=== PATIENT | female | born 1960 | race Caucasian/White ===

== ENCOUNTER 2020-05-25 08:37 | Outpatient (CLI) | payer MEDICAID ==
[2020-05-25 12:08] LABS: BASOPHILS # (AUTO) 0.1 10^3/uL (0.0-0.1); BASOPHILS % (AUTO) 1.1 %; EOSINOPHILS # (AUTO) 0.2 10^3/uL (0.0-0.7); EOSINOPHILS % (AUTO) 2.4 %; HGB - HEMOGLOBIN 11.6 g/dL (12.0-16.0); LYMPHOCYTES # (AUTO) 2.1 10^3/uL (1.5-3.5); LYMPHOCYTES % (AUTO) 28.3 %; MEAN CORPUSCULAR HEMOGLOBIN 27.7 pg (27.0-31.0); MEAN CORPUSCULAR HGB CONC 30.4 g/dL (32.0-36.0); MEAN CORPUSCULAR VOLUME 91.2 fL (81.0-99.0); MEAN PLATELET VOLUME 10.2 fL (7.9-10.8); MONOCYTES # (AUTO) 0.6 10^3/uL (0.0-1.0); MONOCYTES % (AUTO) 8.5 %; NEUTROPHILS # (AUTO) 4.5 10^3/uL (1.5-6.6); NEUTROPHILS % (AUTO) 59.4 %; PLT - PLATELET COUNT 309 10^3/uL (130-450); RED BLOOD COUNT 4.19 10^6/uL (4.20-5.40); RED CELL DISTRIBUTION WIDTH 15.2 % (12.0-15.0); WHITE BLOOD COUNT 7.5 x10^3/uL (4.8-10.8)
[2020-05-25 12:23] LABS: HEMOGLOBIN A1c% 7.2 % (4.27-6.07)
[2020-05-25 12:29] LABS: ALBUMIN 4.2 g/dL (3.2-5.5); ALBUMIN/GLOBULIN RATIO 1.3 (1.0-2.2); ALKALINE PHOSPHATASE 72 IU/L (42-121); ALT ALANINE AMINOTRANSFERASE 13 IU/L (10-60); AST ASPARTATE AMINOTRANSFERASE 14 IU/L (10-42); BILIRUBIN,TOTAL 0.8 mg/dL (0.2-1.0); BUN - BLOOD UREA NITROGEN 35 mg/dL (6-20); CALCIUM 9.3 mg/dL (8.5-10.3); CARBON DIOXIDE - CO2 27 mmol/L (21-32); CHLORIDE 102 mmol/L (101-111); CHOLESTEROL 147 mg/dL; CREATININE 1.6 mg/dL (0.4-1.0); GLUCOSE 135 mg/dL (70-100); HDL CHOLESTEROL 37 mg/dL; LDL CHOLESTEROL,CALCULATED 82 mg/dL; LDL/HDL RATIO 2.2 (<4.4); SODIUM 138 mmol/L (135-145); TOTAL PROTEIN 7.5 g/dL (6.7-8.2); VLDL CHOLESTEROL 28 mg/dL
[2020-05-25 12:39] LABS: CREATININE,URINE 191.5 mg/dL; MICROALBUM/CREATININE RATIO,UR 3.1 ug/mg (<30.0); MICROALBUMIN,URINE 0.6 mg/dL (0-300.0)
== END 2020-05-25 23:59 | disposition home or self-care (01) ==
LOC: LAB.WCP 08:37
PROVIDERS: ATTEND Nurse Practitioner
DX: F41.9 Anxiety disorder, unspecified (principal); I10 Essential (primary) hypertension; E78.5 Hyperlipidemia, unspecified; E11.9 Type 2 diabetes mellitus without complications
CPT/HCPCS: 36415; 80053; 80061; 82043; 82570; 83036; 83721; 84443; 85025

== ENCOUNTER 2020-05-25 10:38 | Outpatient (CLI) | payer MEDICAID ==
--- NOTE | 2020-05-25 10:32 | XRAY Report ---
PROCEDURE: Hip 1 View RT INDICATIONS: RIGHT HIP PAIN TECHNIQUE: 2 views of the right hip were acquired. COMPARISON: None FINDINGS: Bones: No fractures or dislocations. No suspicious bony lesions. The visualized pelvic ring appear s intact. Mild right hip osseous hypertrophy compatible with mild osteoarthritis. Soft tissues: No suspicious soft tissue calcifications or masses. IMPRESSION: Mild right hip osteoarthritis. Reviewed by: Kaylin Saab MD, PhD on 05/25/2020 10:31 AM PDT Approved by: Kaylin Saab MD, PhD on 05/25/2020 10:31 AM PDT Station ID: [id number]
== END 2020-05-25 23:59 | disposition home or self-care (01) ==
LOC: DI.WCP 10:38
PROVIDERS: ATTEND Nurse Practitioner
DX: M16.11 Unilateral primary osteoarthritis, right hip (principal)

== ENCOUNTER 2020-09-04 11:19 | Outpatient (CLI) | payer MEDICAID | END 2020-09-04 11:20 | disposition critical access hospital (66) | LOC: EMS 11:19 | PROVIDERS: ATTEND Surgery | DX: R52 Pain, unspecified (principal); S09.90XA Unspecified injury of head, initial encounter; W18.30XA Fall on same level, unspecified, initial encounter; Y92.10 Unspecified residential institution as the place of occurrence of the external cause | CPT/HCPCS: A0425; A0429; A0999 ==

== ENCOUNTER 2020-09-04 11:50 | Inpatient (IN) | payer MEDICAID ==
[2020-09-04] MEDS ORDERED: ONDANSETRON 4 MG/2 ML VIAL IVP STA (12:22)
[2020-09-04 12:27] LABS: BASOPHILS # (AUTO) 0.1 10^3/uL (0.0-0.1); BASOPHILS % (AUTO) 1.1 %; EOSINOPHILS # (AUTO) 0.1 10^3/uL (0.0-0.7); EOSINOPHILS % (AUTO) 0.8 %; HGB - HEMOGLOBIN 10.4 g/dL (12.0-16.0); LYMPHOCYTES # (AUTO) 1.2 10^3/uL (1.5-3.5); LYMPHOCYTES % (AUTO) 15.1 %; MEAN CORPUSCULAR HEMOGLOBIN 27.3 pg (27.0-31.0); MEAN CORPUSCULAR HGB CONC 30.7 g/dL (32.0-36.0); MEAN PLATELET VOLUME 9.8 fL (7.9-10.8); MONOCYTES # (AUTO) 0.6 10^3/uL (0.0-1.0); MONOCYTES % (AUTO) 7.1 %; NEUTROPHILS # (AUTO) 5.9 10^3/uL (1.5-6.6); NEUTROPHILS % (AUTO) 75.4 %; PLT - PLATELET COUNT 385 10^3/uL (130-450); RED BLOOD COUNT 3.81 10^6/uL (4.20-5.40); RED CELL DISTRIBUTION WIDTH 14.8 % (12.0-15.0); WHITE BLOOD COUNT 7.9 x10^3/uL (4.8-10.8)
[2020-09-04] MEDS ORDERED: SODIUM CHLORIDE 0.9% 1,000 ML IV ONE (12:31)
[2020-09-04 12:57] LABS: ALBUMIN 4.2 g/dL (3.2-5.5); ALBUMIN/GLOBULIN RATIO 1.2 (1.0-2.2); BILIRUBIN,TOTAL 1.4 mg/dL (0.2-1.0); CALCIUM 9.4 mg/dL (8.5-10.3); CREATININE 3.2 mg/dL (0.4-1.0); TOTAL PROTEIN 7.6 g/dL (6.7-8.2)
--- NOTE | 2020-09-04 13:03 | CT Report ---
PROCEDURE: HEAD WO INDICATIONS: fall/anticoagulation TECHNIQUE: Noncontrast 4.5 mm thick angled axial sections acquired from the foramen magnum to the vertex. For r adiation dose reduction, the following was used: automated exposure control, adjustment of mA and/or kV according to patient size. COMPARISON: None. FINDINGS: Image quality: Excellent. CSF spaces: Basal cisterns are patent. No extra-axial fluid collections. Ventricles are normal in size and shape. Brain: No midline shift. No intracranial masses or hyperdense blood products. Moderate-sized ill-de fined area of hypodensity in the right frontal parietal lobe prominently involving the white matter, (6/23 and 4/). Small focus of hypodensity in the right caudate nucleus. Small area of periventricul ar hypodensity adjacent to the left frontal horn. Skull and face: Calvarium and visualized facial bones are intact, without suspicious lesions. Sinuses: Visualized sinuses and mastoids are clear. IMPRESSION: 1. No acute intracranial hemorrhage. 2. Moderate-sized area of hypodensity in the right frontoparietal lobe. This is most compatible with prior infarction. 3. Suspect prior lacunar infarct in the right caudate nucleus. 4. Prominent periventricular hypodensity at the left frontal horn. This could be due to chronic micro vascular ischemic disease or prior infarct. Comparison with prior head CT if available would be helpful. Reviewed by: Franklin Francois MD on 09/04/2020 12:01 PM RUST Approved by: Franklin Francois MD on 09/04/2020 12:01 PM RUST Station ID: [id number]
[2020-09-04] MEDS ORDERED: SODIUM CHLORIDE FLUSH 0.9% 10 ML SYRINGE IVP PRN (13:19)
[2020-09-04] MEDS ORDERED: ACETAMINOPHEN 325 MG TABLET PO PRN (13:19)
[2020-09-04] MEDS ORDERED: ONDANSETRON 4 MG/2 ML VIAL IVP PRN (13:19)
[2020-09-04] MEDS ORDERED: oxyCODONE 5 MG TABLET PO PRN (13:19)
[2020-09-04] MEDS ORDERED: SODIUM CHLORIDE 0.9% 1,000 ML IV STA (13:21)
--- NOTE | 2020-09-04 13:21 | ED Physician Documentation ---
History of Present Illness - Stated complaint Stated Complaint: GLF - Chief complaint Chief Complaint: Trauma Hd/Nk - History obtained from History obtained from: Patient - Additonal information Additional information: Pt is brought to the ED by EMS after a couple of GLF's at home. Pt has been nauseated and vomiting for about the past week and a half, and has become increasingly weak and lightheaded. She states she fell today because she felt very weak when standing up. No fevers or chills. No diarrhea. No SOB or CP. Review of Systems Ten Systems: 10 systems reviewed and negative Constitutional: reports: Reviewed and negative. denies: Fever, Chills Eyes: reports: Reviewed and negative Ears: reports: Reviewed and negative Nose: reports: Reviewed and negative Throat: reports: Reviewed and negative Cardiac: reports: Reviewed and negative Respiratory: reports: Reviewed and negative GI: reports: Nausea, Vomiting : reports: Reviewed and negative Skin: reports: Reviewed and negative Musculoskeletal: reports: Reviewed and negative Neurologic: reports: Generalized weakness, Near syncope. 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 - Present Medications Home Medications: Ambulatory Orders Medication Instructions Recorded Confirmed Atorvastatin Calcium [Lipitor] 80 mg PO DAILY 09/04/20 09/04/20 Clopidogrel [Plavix] 75 mg PO DAILY 09/04/20 09/04/20 Lisinopril/Hydrochlorothiazide 1 each PO DAILY 09/04/20 09/04/20 [Zestoretic 20-25 mg Tablet] Meloxicam [Mobic] 7.5 mg PO DAILY 09/04/20 09/04/20 Pioglitazone HCl [Actos] 30 mg PO DAILY 09/04/20 09/04/20 amLODIPine [Norvasc] 5 mg PO DAILY 09/04/20 09/04/20 hydrOXYzine HCL [Hydroxyzine HCl] 50 - 100 mg PO HS PRN 09/04/20 09/04/20 Ferrous Sulfate Liquid [Feosol 300 mg PO DAILYWM #30 udc 09/07/20 Liquid] Folic Acid 1 mg PO DAILY #30 tablet 09/07/20 Ondansetron Odt [Zofran Odt] 4 mg TL Q6H PRN #10 tablet 09/07/20 - Allergies Allergies/Adverse Reactions: Allergies Allergy/AdvReac Type Severity Reaction Status Date / Time metformin AdvReac Emesis Verified 09/04/20 21:50 - Social History Does the pt smoke?: Yes Smoking Status: Current every day smoker Does the pt drink ETOH?: No Does the pt have substance abuse?: No - Immunizations Immunizations are current?: Yes PD ED PE NORMAL - Vitals Vital signs reviewed: Yes - General General: Alert and oriented X 3, No acute distress, Other (Pt appears moderately generally ill, but not toxic.) - HEENT HEENT: Atraumatic, PERRL, EOMI, Moist mucous membranes - Neck Neck: Supple, no meningeal sign - Cardiac Cardiac: RRR, No murmur, Strong equal pulses - Respiratory Respiratory: No respiratory distress, Clear bilaterally - Abdomen Abdomen: Soft, Non distended, Other (mild diffuse tenderness, no rebound or guarding) - Derm Derm: Warm and dry - Extremities Extremities: No deformity, No edema, No calf tenderness / cord - Neuro Neuro: Alert and oriented X 3, Other (grossly normal) - Psych Psych: Normal mood, Normal affect Results - Vitals Vitals: Oxygen O2 Source Room air - Labs Labs: Laboratory Tests 09/04/20 09/04/20 09/04/20 12:00 12:00 12:00 WBC 7.9 RBC 3.81 L Hgb 10.4 L Hct 33.9 L MCV 89.0 MCH 27.3 MCHC 30.7 L RDW 14.8 Plt Count 385 MPV 9.8 Neut # (Auto) 5.9 Lymph # (Auto) 1.2 L Thomas # (Auto) 0.6 Eos # (Auto) 0.1 Baso # (Auto) 0.1 Absolute Nucleated RBC 0.00 Nucleated RBC % 0.0 Sodium 138 Potassium 3.4 L Chloride 90 L Carbon Dioxide 26 Anion Gap 22.0 H BUN 80 H* Creatinine 3.2 H Estimated GFR (MDRD) 15 L Glucose 125 H Calcium 9.4 Total Bilirubin 1.4 H AST 23 ALT 12 Alkaline Phosphatase 73 Troponin I High Sens 17.5 H* Total Protein 7.6 Albumin 4.2 Globulin 3.4 Albumin/Globulin Ratio 1.2 PD MEDICAL DECISION MAKING - ED course Complexity details: reviewed old records, reviewed results, re-evaluated patient, considered differential, d/w patient ED course: Pt was immediately started on IV fluids, and laboratory studies were sent. Pt was found to have a creatinine of 3.2, which was up from her last one in May at 1.6. Pt's BUN was in the 70's. She was given [id number] liters of fluid in the ED, but I felt that she would need admission to be fully hydrated and return to her baseline creatinine. I spoke with Dr. Andrei bull this, and she agreed to admit the pt to her service. Departure - Departure Disposition: ED Place in Observation Clinical Impression: Dehydration, Hypovolemic shock Acute renal failure Qualifiers: Acute renal failure type: unspecified Qualified Code(s): N17.9 - Acute kidney failure, unspecified Condition: Stable Discharge Date/Time: 09/04/20 14:41
--- NOTE | 2020-09-04 14:03 | HISTORY & PHYSICAL EXAMINATION ---
Chief Complaint - Chief Complaint Chief Complaint: Fall <Vera Ambriz - Last Filed: 09/04/20 17:37> History of Present Illness - Admitted From Admitted From:: Assisted Living via EMS - History Obtained From History obtained from: Patient, patient records Exam Limitations: None <Vera Ambriz - Last Filed: 09/04/20 17:37> - History of Present Illness HPI Comment/Other: Patient is a 60-year-old female with a history of hypertension, hyperlipidemia, diabetes type 2, and stroke x2 who presents to the emergency room via EMS for a fall at her assisted living this morning. She was in the bathroom this morning when she felt dizzy and fell and hit her head. She denies losing consciousness. A caregiver at her assisted living came help her and decided to call EMS as she was too weak to get up. Patient reports feeling nauseous and has been vomiting for about a week. She has not been able to keep any food or fluid down. She vomited twice today and described it as "bile-looking" without blood. Patient is not able to recall eating anything unusual and has not been around anyone that is sick. Her urine is described as minimal and dark petrona colored. She has noticed some weight loss since she's been vomiting. She denies fever or chills. No dyspnea, cough, or chest pain. She has occasional heartburn, but does not take anything for it. No abdominal pain, diarrhea, melena/hematochezia. Decreased in appetite. No dysuria, hematuria or urinary frequency, urgency. No neuro focal deficits. She was hypotensive on arrival to the emergency room with blood pressure reading 80s/50s. Her blood pressure improved with a liter of NS. She was otherwise afebrile, saturating well on room air. Her lab result was notable for an elevated BUN and creatinine of 3.6. Her baseline is 1.2-1.5. No leukocytosis no diana. Patient's head CT was negative; old infarcts seen and unchanged. She is being admitted for TIESHA secondary to dehydration and lack of PO nutrition. 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 Status post 4 C-sections. First age 12.) : reports: Incontinence (Requiring durable medical equipment) Psych: reports: Anxiety Musculoskeletal: reports: Other (Chronic hip pain from chronic bursitis With history of left clavicle and left elbow fracture as a child) - Family & Social History Family History Comment/Other: She is adopted. As such she does not have any familial history for parents or siblings. Of 4 children they are all healthy without any major medical illnesses. Social History Notes: She smokes anywhere from 5 to 10 cigarettes a day. Has smoked for close to 50 years. She is used recreational substances in the past including cocaine. None for over a decade. She has no history of alcohol abuse. She used to live with her daughter, and daughter could no longer take care of her and she was placed in [facility] intermediate facility in April 2020. <Verenice Forbes - Last Filed: 09/04/20 17:50> Meds/Allgy <Vera Ambriz - Last Filed: 09/04/20 17:37> <Verenice Forbes - Last Filed: 09/04/20 17:50> - Home Medications Home Medications: Ambulatory Orders Medication Instructions Recorded Confirmed Atorvastatin Calcium [Lipitor] 80 mg PO DAILY 09/04/20 09/04/20 Clopidogrel [Plavix] 75 mg PO DAILY 09/04/20 09/04/20 Lisinopril/Hydrochlorothiazide 1 each PO DAILY 09/04/20 09/04/20 [Zestoretic 20-25 mg Tablet] Meloxicam [Mobic] 7.5 mg PO DAILY 09/04/20 09/04/20 Pioglitazone HCl [Actos] 30 mg PO DAILY 09/04/20 09/04/20 amLODIPine [Norvasc] 5 mg PO DAILY 09/04/20 09/04/20 hydrOXYzine HCL [Hydroxyzine HCl] 50 - 100 mg PO HS PRN 09/04/20 09/04/20 - Allergies Allergies/Adverse Reactions: Allergies Allergy/AdvReac Type Severity Reaction Status Date / Time No Known Drug Allergies Allergy Verified 09/04/20 12:05 Review of Systems - Constitutional Constitutional: reports: Fatigue, Malaise, Weakness, Poor appetite, Weight loss (weight loss from when she started vomiting a week ago.). denies: Fever, Chills, Diaphoresis, Night sweats, Weight gain - Eyes Eyes: denies: Pain, Irritation, Blurred vision, Field loss, Vision loss - Ears, Nose & Throat Ears, Nose & Throat: reports: Tinnitus, Nasal pain. denies: Ear pain, Hearing loss, Vertigo, Nasal discharge, Sore throat, Hoarseness - Cardiovascular Cariovascular: reports: Lightheadedness. denies: Irregular heart rate, Palpitations, Chest pain, Edema, Exertional dyspnea, Decr. exercise tolerance, Orthopnea - Respiratory Respiratory: denies: Cough, Sputum production, Wheezing, Hemoptysis, SOB at rest , SOB with exertion - Gastrointestinal Gastrointestinal: reports: Nausea, Vomiting, Bile emesis, Reflux/heartburn, Poor appetite. denies: Abdominal pain, Constipation, Diarrhea, Change in bowel habits, Black stools, Bloody stools, Bi blood emesis, Coffee grounds emesis, Bloating - Genitourinary Genitourinary: denies: Dysuria, Frequency, Urgency, Hematuria, Flank pain - Neurological Neurological: reports: General weakness, Dizziness. denies: Focal weakness, Headache, Numbness, Seizures, Incoordination, Slurred speech - Endocrine Endocrine: denies: Polyuria, Polydypsia, Polyphagia - Hematologic/Lymphatic Hematologic/Lymphatic: denies: Anemia, Bruising <Vera Ambriz - Last Filed: 09/04/20 17:37> - Ears, Nose & Throat Ears, Nose & Throat: reports: Other (Recent episode of serous otitis media last month) - Genitourinary Genitourinary: reports: Incontinence - Musculoskeletal Musculoskeletal: reports: Joint pain - Integumentary Integumentary: denies: Rash, Pruritis, Lesions - Psychiatric Psychiatric: reports: Anxiety. denies: Depression, Hallucinations <Verenice Forbes Ced - Last Filed: 09/04/20 17:50> <PbVera - Last Filed: 09/04/20 17:37> Prior Level of Functionality: Patient does not use any assistive devices. She is able to ambulate and perform her ADLs independently. She reports being able to walk around her living space without issues. (Vera Ambriz) Exam - Vital Signs Reviewed Vital Signs: Yes - Physical Exam General Appearance: positive: No acute distress, Alert, Other (Patient appears to be older than stated age. She looks fatigued and is slightly pale. Behavior is appropriate.) Eyes Bilateral: positive: Normal inspection, PERRL, EOMI, No lid inflammation, Conjunctivae nml, No scleral icterus ENT: positive: ENT inspection nml, Pharynx nml, Dry mucous membranes Neck: positive: Nml inspection, Thyroid nml, Trachea midline. negative: No JVD, Thyromegaly, Lymphadenopathy (R), Lymphadenopathy (L), Stiff neck Respiratory: positive: Chest non-tender, No respiratory distress, Breath sounds nml. negative: Wheezes, Rales, Rhonchi Cardiovascular: positive: Regular rate & rhythm, Systolic murmur (low-grade murmur). negative: No gallop, Irregularly irregular, Extrasystoles, Tachycardia, Diastolic murmur, Gallop/S3, Gallop/S4 Peripheral Pulses: positive: 2+ Abdomen: positive: No organomegaly, No distention, Tenderness (slight tenderness to palpation in the umbilical region), Abnml bowel sounds. negative: Guarding, Rebound, Hepatomegaly, Splenomegaly, Bruit Skin: positive: Color nml, No rash, Warm, Dry. negative: Cyanosis, Diaphoresis Extremities: positive: Non-tender, Full ROM, Nml appearance, No pedal edema. negative: Calf tenderness Neurologic/Psychiatric: positive: Oriented x3, Motor nml, Sensation nml, Mood/affect nml. negative: Facial droop, Slurred/abnml speech <Vera Ambriz - Last Filed: 09/04/20 17:37> - Vital Signs Vital Signs: Vital Signs x48h Temp Pulse Pulse Pulse Resp BP BP 09/04/20 16:00 36.4 C L 70 16 111/65 09/04/20 14:40 36.6 C 72 16 97/60 09/04/20 13:40 36.5 C 72 18 115/64 09/04/20 13:20 73 14 99/59 L 09/04/20 12:54 37.1 C 72 16 100/65 09/04/20 12:40 69 14 91/58 L 09/04/20 12:24 74 14 94/44 L 09/04/20 12:05 36.8 C 73 14 89/65 L Pulse Ox 09/04/20 16:00 97 09/04/20 14:40 98 09/04/20 13:40 99 09/04/20 13:20 100 09/04/20 12:54 98 09/04/20 12:40 96 09/04/20 12:24 96 09/04/20 12:05 98 Conclusion/Plan - Problem List (1) Dehydration Conclusion/Plan: Her dehydration is secondary to one week of nausea and vomiting. She has not been able to keep any fluid or solids down. A liter of NS was given in the emergency room. Plan: Continue LR maintence fluid at 100cc/hr and encourage PO fluid intake if tolerated. (2) Acute renal failure Conclusion/Plan: Patient has CKD with baseline creatinine of 1.2-1.5. Her creatinine is now 3.6. Prolonged dehydration most likely contributed to her rise in creatinine and TIESHA, but cannot rule out other diagnosis such as an obstruction. Plan: Continue IV maintenance fluid and PO fluid intake. Will recheck and trend her creatinine later tonight. Renal/pelvic ultrasound ordered to rule out obstruction. Qualifiers: Acute renal failure type: unspecified Qualified Code(s): N17.9 - Acute kidney failure, unspecified (3) Hypotension Conclusion/Plan: Likely due to dehydration. Her blood pressure is now improved after NS bolus. Plan: Continue Q4 hr vitals. (4) Nausea & vomiting Conclusion/Plan: She reports vomiting for the past week. Uncertain what is causing her nausea and vomiting. She has not had a fever, diarrhea, nor other symptoms. She received a dose of zofran in the emergency room and reports feeling better thereafter. This may possibly be due to a stomach virus. Plan: Give patient Zofran for nausea and vomiting. Renal ultrasound to be done to rule out obstruction which could cause N/V. Qualifiers: Vomiting type: bilious vomiting Qualified Code(s): R11.14 - Bilious vomiting (5) Hyperlipidemia Conclusion/Plan: Will restart her home dose atorvastatin. (6) Type 2 DM with CKD and hypertension Conclusion/Plan: Hold her pioglitazone for now and start her on a sliding scale when she is able to eat. Will also hold her lisinopril and amplodipine today for hypotension. Can restart her hypertensive when her blood pressure is back to baseline. (7) Hypokalemia Conclusion/Plan: Patient's potassium is 3.4. Her hypokalemia is likely due to GI loss from vomiting the past few days. Plan: Replace potassium per protocol and recheck BMP in the morning and continue to trend. (8) Tobacco abuse Conclusion/Plan: Patient reports smoking about 4 cigarettes a day. She has been a smoker since she was 12 years old and does not plan on quitting. Plan: Start her on a nicotine patch while she is inpatient. - Lab Results Lab results reviewed: Yes Fish Bones: 09/04/20 12:00 09/04/20 12:00 - Diagnostic Imaging Results Diagnostic Imaging Results: positive: Final report reviewed - EKG Results EKG Interpreted Independently: Yes EKG Comparison: Old EKG unavailable <Vera Ambriz - Last Filed: 09/04/20 17:37> - Lab Results Fish Bones: 09/04/20 12:00 09/04/20 12:00 <Verenice Forbes - Last Filed: 09/04/20 17:50> - Diagnostic Imaging Results Diagnostic Imaging Results Comments: Head CT without acute intracranial hemorrhage. Moderate sized area of hypodensity in the right frontoparietal lobe. Prior infarct in the right caudate nucleus. Prominent periventricular hypodensity at the left frontal horn to prior in fact or microvascular ischemic change. (Verenice Forbes) Core Measures - Anticipated LOS I expect patient to be DC'd or transferred within 96 hours.: Yes - DVT/VTE - Prophylaxis VTE/DVT Device ordered at admit?: Yes <Vera Ambriz - Last Filed: 09/04/20 17:37>
[2020-09-04 14:20] LABS: C. PNEUMONIAE- RESP PCR PANEL NOT DETECTED
[2020-09-04] MEDS: LACTATED RINGERS 1,000 ML IV SCH (14:40)
--- NOTE | 2020-09-04 14:53 | PHARMACY PROGRESS NOTE ---
- Best Possible Medication History Admit Date and Time: 09/04/20 1318 Processed by: Pharmacy Medication History completed: Yes Secondary Source(s): Facility MAR as ONLY source As the person ultimately responsible for medication therapy, providers are able to order a medication from an existing home medication list in [facility] via the "Reconcile Routine" prior to Confirmation of that medication by technical support 1 software engineer. Such practice is discouraged except when the physician, in their clinical judgment, deems that a medical need exists for a medication without regard to previous use.
[2020-09-04] MEDS: SODIUM CHLORIDE FLUSH 0.9% 10 ML SYRINGE IVP SCH (15:42)
--- NOTE | 2020-09-04 16:28 | Ultrasound Report ---
PROCEDURE: Retroperitoneal INDICATIONS: new renal failure TECHNIQUE: Real-time scanning was performed of the retroperitoneal organs, with image documentation. COMPARISON: None. FINDINGS: Kidneys: Kidneys are normal in size. Right kidney measures 7.3 cm long; left kidney measures 11.3 c m long. Right renal cortical thickness is 0.7 cm; left renal cortical thickness is 1.3 cm. No solid masses, hydronephrosis, or nephrolithiasis. Pancreas: Visualized portions of the pancreas are sonographically normal. Aorta: Visualized aorta is normal in caliber at 3 cm or less. Iliac arteries: Proximal common iliac arteries are normal in caliber at 2.5 cm or less. IVC: Intrahepatic inferior vena cava is patent. Miscellaneous: No free abdominal fluid. Ureteral jets were not detected. IMPRESSION: 1. Atrophic right kidney. 2. Normal left kidney. Reviewed by: Merrick Russ on 09/04/2020 4:26 PM PST Approved by: Merrick Russ on 09/04/2020 4:26 PM PST Station ID: [id number]
[2020-09-04] MEDS: NICOTINE 21 MG PATCH TOP SCH (18:10)
[2020-09-04] MEDS: POTASSIUM CHLOR 10 MEQ/100 ML 10 MEQ/100 ML BAG IV SCH ×4 (18:10→21:48)
[2020-09-04 18:28] LABS: CALCIUM 8.5 mg/dL (8.5-10.3); CREATININE 2.6 mg/dL (0.4-1.0)
[2020-09-04 20:06] LABS: MUDS CUTOFF CONCENTRATIONS CUTOFF CONC BELOW:
[2020-09-04 20:18] LABS: AMPHETAMINE SCREEN,URINE NEGATIVE (NEGATIVE); BENZODIAZEPINES SCREEN, URINE NEGATIVE (NEGATIVE); COCAINE SCREEN URINE NEGATIVE (NEGATIVE); METHADONE SCREEN, URINE NEGATIVE (NEGATIVE); METHAMPHETAMINES SCREEN, URINE NEGATIVE (NEGATIVE); OPIATE SCREEN, URINE NEGATIVE (NEGATIVE); OXYCODONE SCREEN, URINE NEGATIVE (NEGATIVE); PROPOXYPHENE SCREEN, URINE NEGATIVE (NEGATIVE); TRICYCLIC ANTIDEPRESSANT,URINE NEGATIVE (NEGATIVE)
[2020-09-04] MEDS: hydrOXYzine PAMOATE 25 MG CAPSULE PO PRN (21:48)
[2020-09-05] MEDS: SODIUM CHLORIDE FLUSH 0.9% 10 ML SYRINGE IVP SCH ×3 (00:25→18:08)
[2020-09-05] MEDS: LACTATED RINGERS 1,000 ML IV SCH ×3 (00:25→20:14)
[2020-09-05 05:10] LABS: BASOPHILS # (AUTO) 0.1 10^3/uL (0.0-0.1); BASOPHILS % (AUTO) 1.2 %; EOSINOPHILS # (AUTO) 0.2 10^3/uL (0.0-0.7); EOSINOPHILS % (AUTO) 3.1 %; HGB - HEMOGLOBIN 8.2 g/dL (12.0-16.0); LYMPHOCYTES # (AUTO) 1.3 10^3/uL (1.5-3.5); LYMPHOCYTES % (AUTO) 22.1 %; MEAN CORPUSCULAR HEMOGLOBIN 26.7 pg (27.0-31.0); MEAN CORPUSCULAR HGB CONC 30.1 g/dL (32.0-36.0); MEAN CORPUSCULAR VOLUME 88.6 fL (81.0-99.0); MONOCYTES # (AUTO) 0.5 10^3/uL (0.0-1.0); MONOCYTES % (AUTO) 8.6 %; NEUTROPHILS # (AUTO) 3.9 10^3/uL (1.5-6.6); NEUTROPHILS % (AUTO) 64.7 %; PLT - PLATELET COUNT 265 10^3/uL (130-450); RED BLOOD COUNT 3.07 10^6/uL (4.20-5.40); RED CELL DISTRIBUTION WIDTH 14.9 % (12.0-15.0); WHITE BLOOD COUNT 6.1 x10^3/uL (4.8-10.8)
[2020-09-05 05:27] LABS: CALCIUM 8.6 mg/dL (8.5-10.3); CREATININE 2.2 mg/dL (0.4-1.0)
[2020-09-05] MEDS: NICOTINE 21 MG PATCH TOP SCH (09:18)
--- NOTE | 2020-09-05 09:28 | PROVIDER PROGRESS NOTE ---
Subjective - Prog Note Date Prog Note Date: 09/05/20 Prog Note Time: 09:25 - Subjective Pt reports feeling: Improved Subjective: Patient reports feeling less nauseated and thirsty. She has not had any episodes of vomiting overnight. She is tolerating clear liquid and jello fine, but have yet to try any solid food. She says she was able to walk to the bathroom with the [employer] without any issues and feels stronger than yesterday before she came into the hospital. Current Medications - Current Medications Current Medications: Active Medications Generic Name Dose Route Start Last Admin Trade Name Freq PRN Reason Stop Dose Admin Acetaminophen 650 mg 09/04/20 13:19 Acetaminophen 325 Mg Tablet PO Q4HR PRN Pain 1 to 4 Hydroxyzine Pamoate 50 mg 09/04/20 13:41 09/04/20 21:48 Hydroxyzine Pamoate 25 Mg Capsule PO 50 mg QPM PRN Administration Insomnia Lactated Ringer's 1,000 mls @ 100 mls/hr 09/04/20 14:00 09/05/20 00:25 Lr IV 100 mls/hr .Q10H LEXIE Administration Nicotine 1 patch 09/04/20 17:37 09/05/20 09:18 Nicotine 21 Mg Patch TOP Not Given DAILY LEXIE Ondansetron HCl 4 mg 09/04/20 13:19 Ondansetron 4 Mg/2 Ml Vial IVP Q6HR PRN Nausea / Vomiting Oxycodone HCl 5 mg 09/04/20 13:19 Oxycodone 5 Mg Tablet PO Q4HR PRN Pain 5 to 7 Sodium Chloride 10 ml 09/04/20 13:19 Sodium Chloride Flush 0.9% 10 Ml Syringe IVP PRN PRN NEEDED PER PROVIDER ORDERS Sodium Chloride 10 ml 09/04/20 17:00 09/05/20 09:17 Sodium Chloride Flush 0.9% 10 Ml Syringe IVP Not Given 0100,0900,1700 LEXIE Atorvastatin Calcium [Lipitor] 80 mg PO DAILY 09/04/20 Clopidogrel [Plavix] 75 mg PO DAILY 09/04/20 Lisinopril/Hydrochlorothiazide [Zestoretic 20-25 mg Tablet] 1 each PO DAILY 09/04/20 Meloxicam [Mobic] 7.5 mg PO DAILY 09/04/20 Pioglitazone HCl [Actos] 30 mg PO DAILY 09/04/20 amLODIPine [Norvasc] 5 mg PO DAILY 09/04/20 hydrOXYzine HCL [Hydroxyzine HCl] 50 - 100 mg PO HS PRN 09/04/20 Objective - Vital Signs/Intake & Output Reviewed Vital Signs: Yes Vital Signs: Vital Signs x48h Temp Pulse Resp BP Pulse Ox 09/05/20 05:00 36.4 C L 59 L 12 107/58 L 95 Intake & Output: Intake & Output 09/02/20 09/03/20 09/04/20 09/05/20 23:59 23:59 23:59 23:59 Intake Total 2877 1075 Output Total 175 0 Balance 2702 1075 - Objective General Appearance: positive: No acute distress, Alert, Other (Patient appears older than stated age. She looks malnourished and fatigue but is alert and conversing.) Eyes Bilateral: positive: Normal inspection, PERRL, No lid inflammation, Conjunctivae nml, No scleral icterus ENT: positive: ENT inspection nml, Pharynx nml, No signs of dehydration. negative: Oral lesions, Dry mucous membranes Neck: positive: Nml inspection, Thyroid nml, No JVD, Trachea midline. negative: Thyromegaly, Lymphadenopathy (R), Lymphadenopathy (L) Respiratory: positive: Chest non-tender, No respiratory distress, Breath sounds nml. negative: Wheezes, Rales, Rhonchi Cardiovascular: positive: Regular rate & rhythm, No gallop, Systolic murmur. negative: Irregularly irregular, Tachycardia, Diastolic murmur, Gallop/S3, Gallop/S4 Peripheral Pulses: 2+ Radial (R), 2+ Radial (L), 2+ Dorsalis pedis (R), 2+ Dorsalis pedis (L), 2+ Posterior tibialis (R), 2+ Posterior tibialis (L) Abdomen: positive: No organomegaly, Nml bowel sounds, No distention, Tenderness (very mild tenderness throughout abdomen to palpitation, but no rebound tenderness or guarding.). negative: Guarding, Rebound, Abnml bowel sounds Skin: positive: Color nml, No rash, Warm, Dry. negative: Cyanosis, Diaphoresis, Pallor Extremities: positive: Non-tender, Full ROM, Nml appearance, No pedal edema Neurologic/Psychiatric: positive: Oriented x3, Motor nml, Sensation nml, Mood/affect nml. negative: Facial droop, Slurred/abnml speech, Depressed mood/affect - Lab Results Fish Bones: 09/05/20 05:02 09/05/20 05:02 Other Labs: Lab Results x24hrs 09/05/20 09/05/20 09/04/20 Range/Units 05:02 05:02 19:45 WBC 6.1 (4.8-10.8) x10^3/uL RBC 3.07 L (4.20-5.40) 10^6/uL Hgb 8.2 L (12.0-16.0) g/dL Hct 27.2 L (37.0-47.0) % MCV 88.6 (81.0-99.0) fL MCH 26.7 L (27.0-31.0) pg MCHC 30.1 L (32.0-36.0) g/dL RDW 14.9 (12.0-15.0) % Plt Count 265 (130-450) 10^3/uL MPV 9.0 (7.9-10.8) fL Neut # (Auto) 3.9 (1.5-6.6) 10^3/uL Lymph # (Auto) 1.3 L (1.5-3.5) 10^3/uL [place] # (Auto) 0.5 (0.0-1.0) 10^3/uL Eos # (Auto) 0.2 (0.0-0.7) 10^3/uL Baso # (Auto) 0.1 (0.0-0.1) 10^3/uL Absolute Nucleated RBC 0.00 x10^3/uL Nucleated RBC % 0.0 /100WBC Sodium 139 (135-145) mmol/L Potassium 3.6 (3.5-5.0) mmol/L Chloride 103 (101-111) mmol/L Carbon Dioxide 27 (21-32) mmol/L Anion Gap 9.0 (6-13) BUN 60 H (6-20) mg/dL Creatinine 2.2 H (0.4-1.0) mg/dL Estimated GFR (MDRD) 23 L (>89) Glucose 88 (70-100) mg/dL Lactic Acid (0.5-2.2) mmol/L Calcium 8.6 (8.5-10.3) mg/dL Total Bilirubin (0.2-1.0) mg/dL AST (10-42) IU/L ALT (10-60) IU/L Alkaline Phosphatase (42-121) IU/L Troponin I High Sens (2.3-14.8) ng/L Total Protein (6.7-8.2) g/dL Albumin (3.2-5.5) g/dL Globulin (2.1-4.2) g/dL Albumin/Globulin Ratio (1.0-2.2) Nasal Adenovirus (PCR) Nasal B. parapertussis DNA (PCR) Nasal Coronavir 229E PCR Nasal Coronavir HKU1 PCR Nasal Coronavir NL63 PCR Nasal Coronavir OC43 PCR Nasal Enterovir/Rhinovir PCR Nasal Influenza B PCR Nasal Influenza A PCR Nasal Parainfluen 1 PCR Nasal Parainfluen 2 PCR Nasal Parainfluen 3 PCR Nasal Parainfluen 4 PCR Nasal RSV (PCR) Nasal B.pertussis DNA PCR Nasal C.pneumoniae (PCR) Jm Human Metapneumo PCR Nasal M.pneumoniae (PCR) Nasal SARS-CoV-2 (PCR) Urine Opiates Screen NEGATIVE (NEGATIVE) Ur Oxycodone Screen NEGATIVE (NEGATIVE) Urine Methadone Screen NEGATIVE (NEGATIVE) Ur Propoxyphene Screen NEGATIVE (NEGATIVE) Ur Barbiturates Screen NEGATIVE (NEGATIVE) Ur Tricyclics Screen NEGATIVE (NEGATIVE) Ur Phencyclidine Scrn NEGATIVE (NEGATIVE) Ur Amphetamine Screen NEGATIVE (NEGATIVE) U Methamphetamines Scrn NEGATIVE (NEGATIVE) U Benzodiazepines Scrn NEGATIVE (NEGATIVE) Urine Cocaine Screen NEGATIVE (NEGATIVE) U Cannabinoids Screen NEGATIVE (NEGATIVE) 09/04/20 09/04/20 09/04/20 Range/Units 18:17 18:17 13:29 WBC (4.8-10.8) x10^3/uL RBC (4.20-5.40) 10^6/uL Hgb (12.0-16.0) g/dL Hct (37.0-47.0) % MCV (81.0-99.0) fL MCH (27.0-31.0) pg MCHC (32.0-36.0) g/dL RDW (12.0-15.0) % Plt Count (130-450) 10^3/uL MPV (7.9-10.8) fL Neut # (Auto) (1.5-6.6) 10^3/uL Lymph # (Auto) (1.5-3.5) 10^3/uL [place] # (Auto) (0.0-1.0) 10^3/uL Eos # (Auto) (0.0-0.7) 10^3/uL Baso # (Auto) (0.0-0.1) 10^3/uL Absolute Nucleated RBC x10^3/uL Nucleated RBC % /100WBC Sodium 136 (135-145) mmol/L Potassium 3.2 L (3.5-5.0) mmol/L Chloride 99 L (101-111) mmol/L Carbon Dioxide 22 (21-32) mmol/L Anion Gap 15.0 H (6-13) BUN 72 H (6-20) mg/dL Creatinine 2.6 H (0.4-1.0) mg/dL Estimated GFR (MDRD) 19 L (>89) Glucose 144 H (70-100) mg/dL Lactic Acid 1.0 (0.5-2.2) mmol/L Calcium 8.5 (8.5-10.3) mg/dL Total Bilirubin (0.2-1.0) mg/dL AST (10-42) IU/L ALT (10-60) IU/L Alkaline Phosphatase (42-121) IU/L Troponin I High Sens 17.4 H* (2.3-14.8) ng/L Total Protein (6.7-8.2) g/dL Albumin (3.2-5.5) g/dL Globulin (2.1-4.2) g/dL Albumin/Globulin Ratio (1.0-2.2) Nasal Adenovirus (PCR) Nasal B. parapertussis DNA (PCR) Nasal Coronavir 229E PCR Nasal Coronavir HKU1 PCR Nasal Coronavir NL63 PCR Nasal Coronavir OC43 PCR Nasal Enterovir/Rhinovir PCR Nasal Influenza B PCR Nasal Influenza A PCR Nasal Parainfluen 1 PCR Nasal Parainfluen 2 PCR Nasal Parainfluen 3 PCR Nasal Parainfluen 4 PCR Nasal RSV (PCR) Nasal B.pertussis DNA PCR Nasal C.pneumoniae (PCR) Jm Human Metapneumo PCR Nasal M.pneumoniae (PCR) Nasal SARS-CoV-2 (PCR) Urine Opiates Screen (NEGATIVE) Ur Oxycodone Screen (NEGATIVE) Urine Methadone Screen (NEGATIVE) Ur Propoxyphene Screen (NEGATIVE) Ur Barbiturates Screen (NEGATIVE) Ur Tricyclics Screen (NEGATIVE) Ur Phencyclidine Scrn (NEGATIVE) Ur Amphetamine Screen (NEGATIVE) U Methamphetamines Scrn (NEGATIVE) U Benzodiazepines Scrn (NEGATIVE) Urine Cocaine Screen (NEGATIVE) U Cannabinoids Screen (NEGATIVE) 09/04/20 09/04/20 09/04/20 Range/Units 13:20 12:00 12:00 WBC (4.8-10.8) x10^3/uL RBC (4.20-5.40) 10^6/uL Hgb (12.0-16.0) g/dL Hct (37.0-47.0) % MCV (81.0-99.0) fL MCH (27.0-31.0) pg MCHC (32.0-36.0) g/dL RDW (12.0-15.0) % Plt Count (130-450) 10^3/uL MPV (7.9-10.8) fL Neut # (Auto) (1.5-6.6) 10^3/uL Lymph # (Auto) (1.5-3.5) 10^3/uL [place] # (Auto) (0.0-1.0) 10^3/uL Eos # (Auto) (0.0-0.7) 10^3/uL Baso # (Auto) (0.0-0.1) 10^3/uL Absolute Nucleated RBC x10^3/uL Nucleated RBC % /100WBC Sodium 138 (135-145) mmol/L Potassium 3.4 L (3.5-5.0) mmol/L Chloride 90 L (101-111) mmol/L Carbon Dioxide 26 (21-32) mmol/L Anion Gap 22.0 H (6-13) BUN 80 H* (6-20) mg/dL Creatinine 3.2 H (0.4-1.0) mg/dL Estimated GFR (MDRD) 15 L (>89) Glucose 125 H (70-100) mg/dL Lactic Acid (0.5-2.2) mmol/L Calcium 9.4 (8.5-10.3) mg/dL Total Bilirubin 1.4 H (0.2-1.0) mg/dL AST 23 (10-42) IU/L ALT 12 (10-60) IU/L Alkaline Phosphatase 73 (42-121) IU/L Troponin I High Sens 17.5 H* (2.3-14.8) ng/L Total Protein 7.6 (6.7-8.2) g/dL Albumin 4.2 (3.2-5.5) g/dL Globulin 3.4 (2.1-4.2) g/dL Albumin/Globulin Ratio 1.2 (1.0-2.2) Nasal Adenovirus (PCR) NOT DETECTED Nasal B. parapertussis DNA (PCR) NOT DETECTED Nasal Coronavir 229E PCR NOT DETECTED Nasal Coronavir HKU1 PCR NOT DETECTED Nasal Coronavir NL63 PCR NOT DETECTED Nasal Coronavir OC43 PCR NOT DETECTED Nasal Enterovir/Rhinovir PCR NOT DETECTED Nasal Influenza B PCR NOT DETECTED Nasal Influenza A PCR NOT DETECTED Nasal Parainfluen 1 PCR NOT DETECTED Nasal Parainfluen 2 PCR NOT DETECTED Nasal Parainfluen 3 PCR NOT DETECTED Nasal Parainfluen 4 PCR NOT DETECTED Nasal RSV (PCR) NOT DETECTED Nasal B.pertussis DNA PCR NOT DETECTED Nasal C.pneumoniae (PCR) NOT DETECTED Jm Human Metapneumo PCR NOT DETECTED Nasal M.pneumoniae (PCR) NOT DETECTED Nasal SARS-CoV-2 (PCR) NOT DETECTED Urine Opiates Screen (NEGATIVE) Ur Oxycodone Screen (NEGATIVE) Urine Methadone Screen (NEGATIVE) Ur Propoxyphene Screen (NEGATIVE) Ur Barbiturates Screen (NEGATIVE) Ur Tricyclics Screen (NEGATIVE) Ur Phencyclidine Scrn (NEGATIVE) Ur Amphetamine Screen (NEGATIVE) U Methamphetamines Scrn (NEGATIVE) U Benzodiazepines Scrn (NEGATIVE) Urine Cocaine Screen (NEGATIVE) U Cannabinoids Screen (NEGATIVE) 09/04/20 Range/Units 12:00 WBC 7.9 (4.8-10.8) x10^3/uL RBC 3.81 L (4.20-5.40) 10^6/uL Hgb 10.4 L (12.0-16.0) g/dL Hct 33.9 L (37.0-47.0) % MCV 89.0 (81.0-99.0) fL MCH 27.3 (27.0-31.0) pg MCHC 30.7 L (32.0-36.0) g/dL RDW 14.8 (12.0-15.0) % Plt Count 385 (130-450) 10^3/uL MPV 9.8 (7.9-10.8) fL Neut # (Auto) 5.9 (1.5-6.6) 10^3/uL Lymph # (Auto) 1.2 L (1.5-3.5) 10^3/uL [place] # (Auto) 0.6 (0.0-1.0) 10^3/uL Eos # (Auto) 0.1 (0.0-0.7) 10^3/uL Baso # (Auto) 0.1 (0.0-0.1) 10^3/uL Absolute Nucleated RBC 0.00 x10^3/uL Nucleated RBC % 0.0 /100WBC Sodium (135-145) mmol/L Potassium (3.5-5.0) mmol/L Chloride (101-111) mmol/L Carbon Dioxide (21-32) mmol/L Anion Gap (6-13) BUN (6-20) mg/dL Creatinine (0.4-1.0) mg/dL Estimated GFR (MDRD) (>89) Glucose (70-100) mg/dL Lactic Acid (0.5-2.2) mmol/L Calcium (8.5-10.3) mg/dL Total Bilirubin (0.2-1.0) mg/dL AST (10-42) IU/L ALT (10-60) IU/L Alkaline Phosphatase (42-121) IU/L Troponin I High Sens (2.3-14.8) ng/L Total Protein (6.7-8.2) g/dL Albumin (3.2-5.5) g/dL Globulin (2.1-4.2) g/dL Albumin/Globulin Ratio (1.0-2.2) Nasal Adenovirus (PCR) Nasal B. parapertussis DNA (PCR) Nasal Coronavir 229E PCR Nasal Coronavir HKU1 PCR Nasal Coronavir NL63 PCR Nasal Coronavir OC43 PCR Nasal Enterovir/Rhinovir PCR Nasal Influenza B PCR Nasal Influenza A PCR Nasal Parainfluen 1 PCR Nasal Parainfluen 2 PCR Nasal Parainfluen 3 PCR Nasal Parainfluen 4 PCR Nasal RSV (PCR) Nasal B.pertussis DNA PCR Nasal C.pneumoniae (PCR) Jm Human Metapneumo PCR Nasal M.pneumoniae (PCR) Nasal SARS-CoV-2 (PCR) Urine Opiates Screen (NEGATIVE) Ur Oxycodone Screen (NEGATIVE) Urine Methadone Screen (NEGATIVE) Ur Propoxyphene Screen (NEGATIVE) Ur Barbiturates Screen (NEGATIVE) Ur Tricyclics Screen (NEGATIVE) Ur Phencyclidine Scrn (NEGATIVE) Ur Amphetamine Screen (NEGATIVE) U Methamphetamines Scrn (NEGATIVE) U Benzodiazepines Scrn (NEGATIVE) Urine Cocaine Screen (NEGATIVE) U Cannabinoids Screen (NEGATIVE) - Diagnostic Imaging Diagnostic Imaging Results: positive: Final report reviewed ABX Reporting Has patient been on IV antibiotics over the past 48 hours?: No Assessment/Plan - Problem List (1) Dehydration Impression: She is dehydrated secondary to nausea and vomiting for a week and lack of PO fluid intake. She received a liter of NS and IV maintenance fluid overnight. She is also drinking clear liquid. Her creatinine is down from 3.2 to 2.2 today. Plan: Will continue IV maintenance fluid and encourage PO fluid intake. Repeat BMP and trend creatinine tonight. (2) Acute renal failure Impression: Her TIESHA is most likely secondary to dehydration. As mentioned above her creatinine is improving, patient is urinating without issues. Renal ultrasound done yesterday and did not show any obstruction. She however has one atrophied kidney, which puts her at a higher risk for TIESHA when dehydrated. Plan: Will keep her hydrated with maintenance IVF and PO fluids. Continue to trend creatinine overnight. Qualifiers: Acute renal failure type: unspecified Qualified Code(s): N17.9 - Acute kidney failure, unspecified (3) Hypotension Impression: Hypotension is now resolved. She has not been hypotensive overnight after a liter of fluid bolus. (4) Nausea & vomiting Impression: Patient denies feeling nauseous today or overnight and has not vomited since she's been admitted to the hospital. This may have been caused by a GI virus that is now resolving. Plan: Will give her odansetron as needed for nausea/vomiting. Qualifiers: Vomiting type: bilious vomiting Qualified Code(s): R11.14 - Bilious vomiting (5) Hyperlipidemia Impression: Continue home dose atorvastatin and follow-up with her PCP regarding this issue. (6) Type 2 DM with CKD and hypertension Impression: She takes pioglitazone at home for type 2 diabetes. This is held while she is here. Her blood glucose has been around 70s-140s. Will start her on a sliding if she is consistently hyperglycemic. Lisinopril and amlodipine are held for soft blood pressure. May restart when her blood pressure is more robust. (7) Hypokalemia Impression: Hypokalemia was treated with IV potassium chloride yesterday. Her potassium is now normal at 3.6. Plan: Trend BMP overnight and replace potassium if needed. (8) Tobacco abuse Impression: Patient is prescribed nicotine patch for tobacco use.
[2020-09-05] MEDS: hydrOXYzine PAMOATE 25 MG CAPSULE PO PRN (20:52)
[2020-09-06] MEDS: SODIUM CHLORIDE FLUSH 0.9% 10 ML SYRINGE IVP SCH ×3 (03:04→16:14)
[2020-09-06 05:30] LABS: BASOPHILS # (AUTO) 0.1 10^3/uL (0.0-0.1); BASOPHILS % (AUTO) 1.1 %; EOSINOPHILS # (AUTO) 0.2 10^3/uL (0.0-0.7); EOSINOPHILS % (AUTO) 3.3 %; HGB - HEMOGLOBIN 7.8 g/dL (12.0-16.0); LYMPHOCYTES # (AUTO) 1.9 10^3/uL (1.5-3.5); MEAN CORPUSCULAR HEMOGLOBIN 26.7 pg (27.0-31.0); MEAN CORPUSCULAR HGB CONC 29.8 g/dL (32.0-36.0); MEAN CORPUSCULAR VOLUME 89.7 fL (81.0-99.0); MEAN PLATELET VOLUME 9.9 fL (7.9-10.8); MONOCYTES # (AUTO) 0.5 10^3/uL (0.0-1.0); MONOCYTES % (AUTO) 7.7 %; NEUTROPHILS # (AUTO) 3.9 10^3/uL (1.5-6.6); NEUTROPHILS % (AUTO) 59.1 %; PLT - PLATELET COUNT 237 10^3/uL (130-450); RED BLOOD COUNT 2.92 10^6/uL (4.20-5.40); RED CELL DISTRIBUTION WIDTH 15.2 % (12.0-15.0); WHITE BLOOD COUNT 6.6 x10^3/uL (4.8-10.8)
[2020-09-06 05:40] LABS: CALCIUM 8.6 mg/dL (8.5-10.3); CREATININE 1.7 mg/dL (0.4-1.0)
[2020-09-06] MEDS: LACTATED RINGERS 1,000 ML IV SCH ×2 (05:49→19:03)
[2020-09-06] MEDS: CLOPIDOGREL 75 MG TABLET PO SCH (08:50)
[2020-09-06] MEDS: NICOTINE 21 MG PATCH TOP SCH (08:51)
--- NOTE | 2020-09-06 11:35 | PROVIDER PROGRESS NOTE ---
Assessment/Plan - Problem List (1) Acute on chronic renal insufficiency Assessment/Plan: She was admitted with a creatinine of 3.2. With IV hydration today her creatinine is 1.7. Her baseline creatinine is 1.3. Continue to avoid nephrotoxins. Continue with IV rehydration. Follow BMP daily. Possible baseline status will be achieved tomorrow, possibly discharge back to [facility] tomorrow. (2) Gastroenteritis Assessment/Plan: Clear liquid diet was advanced to regular diet and today she cannot tolerate solids such as her s[place]. We will de-escalate her diet down to a soft and bland diet. Continue with IV hydration. Continue with antiemetics as needed and pain meds as needed (3) Dehydration Assessment/Plan: Oral mucosa is still dry. Continue with IV fluids for re-hydration (4) Anemia Assessment/Plan: This is likely multi-factorial: secondary to hemodilution and anemia of chronic disease (from her CKD). We will check B12 and folate levels and iron stores and replace if low (5) Type 2 DM with CKD and hypertension Assessment/Plan: She takes pioglitazone at home for type 2 diabetes. This is held while she is here. Her blood glucose has been around 70s-140s. Will start her on a sliding if she is consistently hyperglycemic. Lisinopril (and amlodipine) are held for soft blood pressure. May restart when her blood pressure is more robust. (6) Hx of essential hypertension Assessment/Plan: Pressure is still "soft". She is not yet been restarted on her home BP meds (7) Tobacco abuse Assessment/Plan: Patient is prescribed nicotine patch for tobacco use urges while here. (8) Hyperlipidemia Assessment/Plan: Continue home dose of Atorvastatin and follow-up with her PCP after [facility] (9) Hypokalemia Assessment/Plan: Resolved - Current Meds Current Meds: Current Medications Generic Name Dose Route Start Last Admin Trade Name Freq PRN Reason Stop Dose Admin Clopidogrel Bisulfate 75 mg 09/06/20 09:00 09/06/20 08:50 Clopidogrel 75 Mg Tablet PO 75 mg DAILY LEXIE Administration Hydroxyzine Pamoate 50 mg 09/04/20 13:41 09/05/20 20:52 Hydroxyzine Pamoate 25 Mg Capsule PO 50 mg QPM PRN Administration Insomnia Lactated Ringer's 1,000 mls @ 100 mls/hr 09/04/20 14:00 09/06/20 05:49 Lr IV 100 mls/hr .Q10H LEXIE Administration Nicotine 1 patch 09/04/20 17:37 09/06/20 08:51 Nicotine 21 Mg Patch TOP Not Given DAILY LEXIE Sodium Chloride 10 ml 09/04/20 17:00 09/06/20 08:51 Sodium Chloride Flush 0.9% 10 Ml Syringe IVP Not Given 0100,0900,1700 ELXIE - Lab Result Fish Bone Diagrams: 09/06/20 05:15 09/06/20 05:15 - Additional Planning My Orders: My Active Orders 09/06/20 Lunch DIET [Soft Mechanical Diet] [DIET] Subjective - Subjective Patient Reports: Feeling Better, Abdominal Pain (Kareem has vague abdominal pain, no more nausea or vomiting, denies any diarrhea) Objective Vital Signs: Vital Signs - 24 hr 09/05/20 09/05/20 09/05/20 13:00 15:58 21:00 Temperature 36.7 C 36.7 C 36.8 C Heart Rate [ 61 67 74 Brachial] Respiratory 16 16 18 Rate Blood Pressure 95/52 L 90/53 L 96/62 [Right Brachial artery] O2 Saturation 100 96 97 09/06/20 09/06/20 09/06/20 03:02 05:00 08:32 Temperature 36.8 C 36.9 C 37 C Heart Rate [ 64 67 66 Brachial] Respiratory 16 16 14 Rate Blood Pressure 104/56 L 107/58 L 105/65 [Right Brachial artery] O2 Saturation 97 96 93 Oxygen O2 Source Room air I&O (Last 24 Hrs): Intake and Output Totals x24h 09/04/20 09/05/20 09/06/20 23:59 23:59 23:59 Intake Total 2877 3300 1018.333 Output Total 175 0 500 Balance 2702 3300 518.333 General: Alert, Oriented x3 HEENT: EOMI, Other (Dry oral mucosa) Neck: Supple, No JVD Neuro: Alert, Non Focal Cardiovascular: Regular rate Respiratory: No respiratory distress Abdomen: Soft Extremities: No edema - Results Results: Laboratory Results WBC 6.6 x10^3/uL (4.8-10.8) 09/06/20 05:15 RBC 2.92 10^6/uL (4.20-5.40) L 09/06/20 05:15 Hgb 7.8 g/dL (12.0-16.0) L 09/06/20 05:15 Hct 26.2 % (37.0-47.0) L 09/06/20 05:15 MCV 89.7 fL (81.0-99.0) 09/06/20 05:15 MCH 26.7 pg (27.0-31.0) L 09/06/20 05:15 MCHC 29.8 g/dL (32.0-36.0) L 09/06/20 05:15 RDW 15.2 % (12.0-15.0) H 09/06/20 05:15 Plt Count 237 10^3/uL (130-450) 09/06/20 05:15 MPV 9.9 fL (7.9-10.8) 09/06/20 05:15 Neut # (Auto) 3.9 10^3/uL (1.5-6.6) 09/06/20 05:15 Lymph # (Auto) 1.9 10^3/uL (1.5-3.5) 09/06/20 05:15 [place] # (Auto) 0.5 10^3/uL (0.0-1.0) 09/06/20 05:15 Eos # (Auto) 0.2 10^3/uL (0.0-0.7) 09/06/20 05:15 Baso # (Auto) 0.1 10^3/uL (0.0-0.1) 09/06/20 05:15 Absolute Nucleated RBC 0.00 x10^3/uL 09/06/20 05:15 Nucleated RBC % 0.0 /100WBC 09/06/20 05:15 Sodium 142 mmol/L (135-145) 09/06/20 05:15 Potassium 3.6 mmol/L (3.5-5.0) 09/06/20 05:15 Chloride 105 mmol/L (101-111) 09/06/20 05:15 Carbon Dioxide 26 mmol/L (21-32) 09/06/20 05:15 Anion Gap 11.0 (6-13) 09/06/20 05:15 BUN 38 mg/dL (6-20) H 09/06/20 05:15 Creatinine 1.7 mg/dL (0.4-1.0) H 09/06/20 05:15 Estimated GFR (MDRD) 31 (>89) L 09/06/20 05:15 Glucose 91 mg/dL (70-100) 09/06/20 05:15 Lactic Acid 1.0 mmol/L (0.5-2.2) 09/04/20 13:29 Calcium 8.6 mg/dL (8.5-10.3) 09/06/20 05:15 Total Bilirubin 1.4 mg/dL (0.2-1.0) H 09/04/20 12:00 AST 23 IU/L (10-42) 09/04/20 12:00 ALT 12 IU/L (10-60) 09/04/20 12:00 Alkaline Phosphatase 73 IU/L (42-121) 09/04/20 12:00 Troponin I High Sens 17.4 ng/L (2.3-14.8) H* 09/04/20 18:17 Total Protein 7.6 g/dL (6.7-8.2) 09/04/20 12:00 Albumin 4.2 g/dL (3.2-5.5) 09/04/20 12:00 Globulin 3.4 g/dL (2.1-4.2) 09/04/20 12:00 Albumin/Globulin Ratio 1.2 (1.0-2.2) 09/04/20 12:00 Nasal Adenovirus (PCR) NOT DETECTED 09/04/20 13:20 Nasal B. parapertussis DNA (PCR) NOT DETECTED 09/04/20 13:20 Nasal Coronavir 229E PCR NOT DETECTED 09/04/20 13:20 Nasal Coronavir HKU1 PCR NOT DETECTED 09/04/20 13:20 Nasal Coronavir NL63 PCR NOT DETECTED 09/04/20 13:20 Nasal Coronavir OC43 PCR NOT DETECTED 09/04/20 13:20 Nasal Enterovir/Rhinovir PCR NOT DETECTED 09/04/20 13:20 Nasal Influenza B PCR NOT DETECTED 09/04/20 13:20 Nasal Influenza A PCR NOT DETECTED 09/04/20 13:20 Nasal Parainfluen 1 PCR NOT DETECTED 09/04/20 13:20 Nasal Parainfluen 2 PCR NOT DETECTED 09/04/20 13:20 Nasal Parainfluen 3 PCR NOT DETECTED 09/04/20 13:20 Nasal Parainfluen 4 PCR NOT DETECTED 09/04/20 13:20 Nasal RSV (PCR) NOT DETECTED 09/04/20 13:20 Nasal B.pertussis DNA PCR NOT DETECTED 09/04/20 13:20 Nasal C.pneumoniae (PCR) NOT DETECTED 09/04/20 13:20 Jm Human Metapneumo PCR NOT DETECTED 09/04/20 13:20 Nasal M.pneumoniae (PCR) NOT DETECTED 09/04/20 13:20 Nasal SARS-CoV-2 (PCR) NOT DETECTED 09/04/20 13:20 Urine Opiates Screen NEGATIVE (NEGATIVE) 09/04/20 19:45 Ur Oxycodone Screen NEGATIVE (NEGATIVE) 09/04/20 19:45 Urine Methadone Screen NEGATIVE (NEGATIVE) 09/04/20 19:45 Ur Propoxyphene Screen NEGATIVE (NEGATIVE) 09/04/20 19:45 Ur Barbiturates Screen NEGATIVE (NEGATIVE) 09/04/20 19:45 Ur Tricyclics Screen NEGATIVE (NEGATIVE) 09/04/20 19:45 Ur Phencyclidine Scrn NEGATIVE (NEGATIVE) 09/04/20 19:45 Ur Amphetamine Screen NEGATIVE (NEGATIVE) 09/04/20 19:45 U Methamphetamines Scrn NEGATIVE (NEGATIVE) 09/04/20 19:45 U Benzodiazepines Scrn NEGATIVE (NEGATIVE) 09/04/20 19:45 Urine Cocaine Screen NEGATIVE (NEGATIVE) 09/04/20 19:45 U Cannabinoids Screen NEGATIVE (NEGATIVE) 09/04/20 19:45
[2020-09-06] MEDS: hydrOXYzine PAMOATE 25 MG CAPSULE PO PRN (20:22)
[2020-09-07] MEDS: LACTATED RINGERS 1,000 ML IV SCH (04:42)
[2020-09-07] MEDS: SODIUM CHLORIDE FLUSH 0.9% 10 ML SYRINGE IVP SCH ×2 (04:42→09:48)
[2020-09-07 05:48] LABS: BASOPHILS # (AUTO) 0.1 10^3/uL (0.0-0.1); BASOPHILS % (AUTO) 0.8 %; EOSINOPHILS # (AUTO) 0.2 10^3/uL (0.0-0.7); EOSINOPHILS % (AUTO) 3.3 %; HGB - HEMOGLOBIN 7.8 g/dL (12.0-16.0); LYMPHOCYTES # (AUTO) 1.7 10^3/uL (1.5-3.5); LYMPHOCYTES % (AUTO) 28.8 %; MEAN CORPUSCULAR HEMOGLOBIN 27.2 pg (27.0-31.0); MEAN CORPUSCULAR HGB CONC 30.7 g/dL (32.0-36.0); MEAN CORPUSCULAR VOLUME 88.5 fL (81.0-99.0); MEAN PLATELET VOLUME 9.8 fL (7.9-10.8); MONOCYTES # (AUTO) 0.5 10^3/uL (0.0-1.0); MONOCYTES % (AUTO) 8.5 %; NEUTROPHILS # (AUTO) 3.5 10^3/uL (1.5-6.6); NEUTROPHILS % (AUTO) 58.1 %; PLT - PLATELET COUNT 232 10^3/uL (130-450); RED BLOOD COUNT 2.87 10^6/uL (4.20-5.40); RED CELL DISTRIBUTION WIDTH 14.9 % (12.0-15.0)
[2020-09-07 06:05] LABS: CALCIUM 8.1 mg/dL (8.5-10.3); CREATININE 1.3 mg/dL (0.4-1.0)
[2020-09-07 06:28] LABS: FOLATE 3.56 ng/mL (5.90 - >24.8)
[2020-09-07] MEDS ORDERED: FERROUS SULFATE 300 MG/5 ML UDC PO SCH (08:04)
[2020-09-07] MEDS ORDERED: LACTOBACILLUS RHAMNOSUS GG CAPSULE PO SCH (09:00)
[2020-09-07] MEDS ORDERED: FOLIC ACID 1 MG TABLET PO SCH (09:00)
--- NOTE | 2020-09-07 09:17 | Discharge Plan ---
Discharge Plan Problem Reviewed?: Yes Disposition: Home, Self Care Condition: Stable Diet: Diabetic (Must be a soft, bland diet for 1 week) Activity Restrictions: Activity as Tolerated Instruction Topics: ED Gastroenteritis Non Infec No Smoking: If you smoke, Please STOP! Call for help. Follow-up with: Anusha Jc ARNP, [employer]-[facility] [Primary Care Provider] -
--- NOTE | 2020-09-07 09:20 | Discharge Plan ---
Discharge Plan for SNF / [facility] - Discharge Plan And Transition Orders Problem Reviewed?: Yes Disposition: 03 SNF DC/Xfer Condition: Stable Allergies and Adverse Reactions: Allergies Allergy/AdvReac Type Severity Reaction Status Date / Time metformin AdvReac Emesis Verified 09/04/20 21:50 Health Concerns: Admitted to hospital to manage severe dehydration that had caused acute on chronic kidney failure, resulting from nausea and vomiting, which was from (probably viral) gastroenteritis. Continue to eat a bland diet until 09/12/20. Stay well-hydrated. A new prescription for translingual Zofran as needed for nausea/vomiting is ordered. Anemia was found, which is from iron deficiency and folic acid deficiency. Both iron supplement and folic acid prescriptions started. DO NOT RESUME THE BP MEDS UNTIL 09/12/20 (her Amlodipine and Lisinopril/HCTZ) Resume all other pre-hospital medications. Plan of Treatment: As above. Care Goals: Improvement in symptoms and stabilization are the goals. Assessment: Instructions provided to Assisted Living Facility staff. - SNF / [facility] Transition Orders Admit to (Facility): [facility] ([facility]) Discharge Diagnosis: (1) Acute on chronic renal insufficiency Improved (2) Gastroenteritis Improving (3) Dehydration Resolved (4) Hypokalemia Replaced (5) Anemia, Folate deficiency and Iron deficiency New prescriptions for replacement ordered (6) Type 2 DM with CKD and hypertension Stable (7) Hx of essential hypertension STILL HAS "SOFT" BP. DO NOT RESUME BP MEDS UNTIL 09/12/20 (8) Hyperlipidemia Being treated (9) Tobacco abuse As per Hx Medicare Certification Statement: I certify that [facility] care is medically necessary on a continuing basis for any of the conditions for which she/he is receiving care during hospitalization. Notify PCP of admission and forward orders to primary provider for signature. Other Notification Orders: Call PCP immediately if patient develops dyspnea, chest pain/tightness or edema. House Bowel Program: Yes Additional Bowel Program Orders: If no BM after 2 days, nurse may give M.O.M. 30ml PO PRN and/or ducolax Supp 1 DE and/or JOSE 250mg P.O., and/or senna 1-2 tabs PO. On day 3 nurse may give repeat above order until residents constipation is resolved. Annual Influenza Vaccine (between May 24 and December 21): Yes Two-step PPD per [facility] [id number] or approved exception documents: Yes Medication Orders: PLEASE REFER TO THE DISCHARGE MEDICATION LIST. Insulin Orders?: No - Medications New Prescriptions: Ferrous Sulfate Liquid [Feosol Liquid] 300 mg PO DAILYWM #30 udc Folic Acid 1 mg PO DAILY #30 tablet Ondansetron Odt [Zofran Odt] 4 mg TL Q6H PRN #10 tablet PRN Reason: Nausea / Vomiting - Diet Type: No added sugar (Diabetic diet.) [facility]ure: [facility] soft (Soft and bland diet untill 09/12/20, then Reg solids OK to resume) Liquids: Thin May have monthly special meal: Yes - Therapies | Activity Activity: Activity as Tolerated Follow Up: See PCP Anusha Jc NP in 1-2 weeks for hospital F/U.
[2020-09-07] MEDS: CLOPIDOGREL 75 MG TABLET PO SCH (09:48)
[2020-09-07] MEDS: NICOTINE 21 MG PATCH TOP SCH (09:51)
[2020-09-07] MEDS ORDERED: ONDANSETRON ODT 4 MG TABLET TL PRN (10:49)
--- NOTE | 2020-09-07 10:58 | DISCHARGE SUMMARY ---
Discharge Summary Admit Date: 09/04/20 Discharge Date: 09/07/20 Discharging Provider: Dr Malu Hallman Primary Care Provider: SYMONE Jc Condition at Discharge: Stable Discharge Disposition: 03 SNF DC/Xfer - HPI History of Present Illness: From the admission H&P of Dr. Verenice Forbes: Patient is a 60-year-old female with a history of hypertension, hyperlipidemia, diabetes type 2, and stroke x2 who presents to the emergency room via EMS for a fall at her assisted living this morning. She was in the bathroom this morning when she felt dizzy and fell and hit her head. She denies losing consciousness. A caregiver at her assisted living came help her and decided to call EMS as she was too weak to get up. Patient reports feeling nauseous and has been vomiting for about a week. She has not been able to keep any food or fluid down. She vomited twice today and described it as "bile-looking" without blood. Patient is not able to recall eating anything unusual and has not been around anyone that is sick. Her urine is described as minimal and dark petrona colored. She has n oticed some weight loss since she's been vomiting. She denies fever or chills. No dyspnea, cough, or chest pain. She has occasional heartburn, but does not take anything for it. No abdominal pain, diarrhea, melena/hematochezia. Decreased in appetite. No dysuria, hematuria or urinary frequency, urgency. No neuro focal deficits. She was hypotensive on arrival to the emergency room with blood pressure reading 80s/50s. Her blood pressure improved with a liter of NS. She was otherwise afebrile, saturating well on room air. Her lab result was notable for an elevated BUN and creatinine of 3.6. Her baseline is 1.2-1.5. No leukocytosis noted. Patient's head CT was negative; old infarcts seen and unchanged. She is being admitted for TIESHA secondary to dehydration and lack of PO nutrition. - HOSPITAL COURSE Hospital Course: (1) Gastroenteritis Imaging did not show any evidence of colitis, or a surgical abdomen and the impression was that she had a viral gastroenteritis. She was kept on a clear liquid diet and given as needed pain meds and antiemetics. The diet was slowly advanced. On the day of discharge she was able to tolerate a soft diet. The discharge instructions to [facility] said to continue with 5-7 more days of a bland, soft diet and to stay well-hydrated. (2) Dehydration Her dry oral mucosa and labs improved slowly, after 4 days of iv hydration. Even with rehydration, she was running a "soft" BP this entire hospitalization and her BP meds Amlodipine and Lisinoprtil/HCTZ were on hold. (3) Acute on chronic renal insufficiency Her baseline creat was previously 1.3. She required iv hydration throughout admission. Her creat improved daily from 3.2>> 2.6>> 2.2>> 1.7>> and was 1.3 on the day of discharge. (4) Hypokalemia Caused by N/V. The Potassium was replaced iv and po. (5) Type 2 DM with CKD and hypertension She was managed with a diabetic diet and sliding scale Insulin while here. Her usual oral anti-hyperglycemic was resumed at discharge. (6) Anemia, Iron deficiency Her serum iron was low as well as iron stores low. A new prescription for liquid Iron replacement daily was ordered at discharge. (7) Folate deficiency Labs showed a very low serum folic acid level of 3.5. She was started on Folate 1 mg p.o. daily with a new prescription. (8) Hx of essential hypertension She was running a "soft" BP this entire hospitalization and her BP meds Amlodipine and Lisinoprtil/HCTZ were on hold. At discharge, instructions were to remain off them for another week, and not to resume BP meds until 09/12/20. (9) Hyperlipidemia We continued her statin medication. (10) Tobacco abuse She was prescribed a Nicotine patch topically daily while here. - ALLERGIES Allergies/Adverse Reactions: Allergies Allergy/AdvReac Type Severity Reaction Status Date / Time metformin AdvReac Emesis Verified 09/04/20 21:50 - MEDICATIONS Home Medications: Ambulatory Orders Medication Instructions Recorded Confirmed Atorvastatin Calcium [Lipitor] 80 mg PO DAILY 09/04/20 09/04/20 Clopidogrel [Plavix] 75 mg PO DAILY 09/04/20 09/04/20 Lisinopril/Hydrochlorothiazide 1 each PO DAILY 09/04/20 09/04/20 [Zestoretic 20-25 mg Tablet] Meloxicam [Mobic] 7.5 mg PO DAILY 09/04/20 09/04/20 Pioglitazone HCl [Actos] 30 mg PO DAILY 09/04/20 09/04/20 amLODIPine [Norvasc] 5 mg PO DAILY 09/04/20 09/04/20 hydrOXYzine HCL [Hydroxyzine HCl] 50 - 100 mg PO HS PRN 09/04/20 09/04/20 Ferrous Sulfate Liquid [Feosol 300 mg PO DAILYWM #30 udc 09/07/20 Liquid] Folic Acid 1 mg PO DAILY #30 tablet 09/07/20 Ondansetron Odt [Zofran Odt] 4 mg TL Q6H PRN #10 tablet 09/07/20 - PHYSICAL EXAM AT DISCHARGE General Appearance: positive: No acute distress, Alert Eyes Bilateral: positive: Normal inspection, EOMI ENT: positive: ENT inspection nml, No signs of dehydration Neck: positive: Nml inspection, No JVD Respiratory: positive: No respiratory distress Cardiovascular: positive: Regular rate & rhythm, No murmur Abdomen: positive: Non-tender, Nml bowel sounds, No distention Skin: positive: Warm, Dry, Pallor Extremities: positive: Non-tender, No pedal edema Neurologic/Psychiatric: positive: Oriented x3, Motor nml - LABS Result Diagrams: 09/07/20 05:17 09/07/20 05:17 - DIAGNOSTIC IMAGING Diagnostic Imaging Results: Final report reviewed - FOLLOW UP Follow Up: See PCP in 1-2 weeks for hospital follow-up.
[2020-09-07 12:43] VITALS: BP 103/55
== END 2020-09-07 14:05 | DRG 392 ==
LOC: EDUNIT# → ED 11:50 → MS2 13:19
PROVIDERS: ADMIT Specialist; ATTEND Internal Medicine
DX: A08.4 Viral intestinal infection, unspecified (principal); N17.9 Acute kidney failure, unspecified; E86.0 Dehydration; E11.22 Type 2 diabetes mellitus with diabetic chronic kidney disease; I12.9 Hypertensive chronic kidney disease with stage 1 through stage 4 chronic kidney disease, or unspecified chronic kidney disease; N18.9 Chronic kidney disease, unspecified; E87.6 Hypokalemia; D50.9 Iron deficiency anemia, unspecified; E53.8 Deficiency of other specified B group vitamins; E78.5 Hyperlipidemia, unspecified; F17.210 Nicotine dependence, cigarettes, uncomplicated; S09.90XA Unspecified injury of head, initial encounter; W18.30XA Fall on same level, unspecified, initial encounter; Y92.091 Bathroom in other non-institutional residence as the place of occurrence of the external cause; Z86.73 Personal history of transient ischemic attack (TIA), and cerebral infarction without residual deficits; Z20.828 Contact with and (suspected) exposure to other viral communicable diseases
CPT/HCPCS: 0202U; 36415; 70450; 76770; 80048; 80053; 80306; 82607; 82746; 83540; 83605; 84466; 84484; 85025; 93005; 96374; 99285; A9270; J7120; Q0162

== ENCOUNTER 2020-09-09 15:40 | Outpatient (CLI) | payer MEDICAID ==
--- OUTSIDE RECORDS SUMMARY | 2020-09-09 19:11 | EXTERNAL MEDICAL SUMMARY RPT | Continuity of Care Document ---
:1960 Demographics Phone Unavailable Preferred Language Norwegian Marital Status Unknown Zoroastrianism Affiliation Unknown Race Unknown Ethnic Group Unknown Author Organization Center Address [address] [id number] Phone Care Team Providers Name Role Phone HEAD OF MUSIC, Anusha Tidioute, Unavailable Unavailable Zaveruha Unavailable Unavailable Tidioute, Anusha Unavailable Unavailable Problems date description facility Type 2 diabetes mellitus with [facility] diabetic neuropathy Smoker, current status unknown [facility] Acute on chronic kidney disease, [facility] stage 3 [facility] Transfusion-dependent anemia [facility] Type 2 diabetes mellitus with [facility] chronic kidney disease and hypertension Type 2 [facility] chronic kidney disease Diabetic autonomic neuropathy [facility] Elevated lipids [facility] Hyperlipidemia [facility] Dehydration after exertion [facility] Dehydration [facility] Hypokalemia due to excessive [facility] renal loss of potassium [facility]okalemia [facility] Anxiety with somatization [facility] Anxiety [facility] 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 [facility] cerebral infarction Gastroenteritis [facility] of [facility] Acute on chronic renal [facility] insufficiency Mild renal insufficiency [facility] Nausea and vomiting [facility] Hypovolemic shock [facility] Tobacco abuse [facility] Vapes nicotine containing [facility] substance History of essential [facility] hypertension History of intracranial [facility] hemorrhage Patient Education [facility] Acute dehydration [facility] Hypokalemia due to loss of [facility] potassium Type 2 diabetes mellitus, [facility] controlled 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 Chronic renal impairment [facility] [id number] Patient referral [facility] 1960 00:00:00 Female [facility] 2020-05-25 00:00 TYPE 2 DIABETES MELLITUS WITHOUT [facility] COMPLICATIONS 2020-05-25 00:00:00 [facility]AL[facility] 2020-05-25 00:00:00 TSH WITH REFLEX TO FT4 [facility] Primary Care [facility] 2020-05-25 00:00:00 Diabetes mellitus without [facility] mention of complication, type II [facility] or unspecified type, not stated as uncontrolled 2020-05-25 00:00:00 Other and unspecified [facility] hyperlipidemia [facility] 2020-05-25 00:00:00 Anxiety state, unspecified [facility] 2020-05-25 00:00:00 Unspecified [facility] hypertension [facility] 2020-05-25 00:00:00 Pain in joint involving pelvic [facility] Primary Care region and thigh [facility] 2020-05-25 00:00:00 Enthesopathy of hip region [facility] 2020-05-25 00:00:00 Screening for malignant [facility] Primary Care neoplasms of colon [facility] 2020-05-25 00:00:00 Screening for other [facility] unspecified endocrine, [facility] nutritional, metabolic, and immunity disorders 2020-05-25 00:00:00 XR HIP UNILATERAL COMPL 2-3 [facility] Primary Care VIEWS [facility] 2020-05-25 00:00:00 MM SCR DIGITAL MAMMO BILAT [facility] 2020-05-25 00:00:00 COMPREHENSIVE METABOLIC PANEL [facility] 2020-05-25 00:00:00 LIPID SCREEN, FASTING [facility] 2020-05-25 00:00:00 COLOGUARD (Colorectal cancer [facility] Primary Care screening; stool-based dna & [facility] fecal occult blood) 2020-05-25 00:00:00 HGBA1C Located within [facility] 2020-05-25 00:00:00 CBC W/Diff/Plt Located within [facility] 2020-05-25 00:00:00 Type 2 diabetes mellitus without [facility] Primary Care complications [facility] 2020-05-25 00:00:00 Hyperlipidemia, unspecified [facility] Primary Care [facility] 2020-05-25 00:00:00 Anxiety disorder, unspecified [facility] Primary Care [facility] 2020-05-25 00:00:00 Essential (primary) hypertension [facility] Primary Care [facility] 2020-05-25 00:00:00 Pain in right hip Located within [facility] 2020-05-25 00:00:00 Other bursitis of hip, right hip [facility] Primary Care [facility] 2020-05-25 00:00:00 Encounter for screening for [facility] malignant neoplasm of colon [facility] 2020-05-25 00:00:00 Encounter for screening for [facility] other metabolic disorders [facility] 2020-05-25 00:00:00 No current problems or [facility] Primary Care disability - unknown [facility] 2020-05-25 00:00:00 Alcohol intake Located within [facility] 2020-05-25 00:00:00 Health-related behavior [facility] Primary Care [facility] 2020-05-25 00:00:00 Tobacco use and exposure [facility] 2020-05-25 00:00:00 Exercise Located within [facility] 2020-05-25 00:00:00 Endocrine/metabolic screening [facility] Primary Care [facility] 2020-05-25 00:00:00 Screening for malignant neoplasm id [facility] Primary Care of colon [facility] 2020-05-25 00:00:00 Details of drug misuse behavior [facility] Primary Care [facility] 2020-05-25 00:00:00 Hypertensive disorder [facility] 2020-05-25 00:00:00 Type 2 diabetes mellitus [facility] 2020-05-25 00:00:00 Little interest or pleasure [facility] doing things? [facility] 2020-05-25 00:00:00 Feeling down, depressed, or [facility] Primary Care hopeless? [facility] 2020-05-25 00:00:00 Current every day smoker [facility] 2020-05-25 00:00:00 Anxiety [facility] Prim k[facility] Care [facility] 2020-05-25 00:00:00 Hip pain [facility] Prim [facility] Care [facility] 2020-05-25 00:00:00 Hyperlipidemia [facility] Prim k[facility] Care [facility] 2020-05-25 00:00:00 Alcohol use [facility] Prim k[facility] Care [facility] 2020-05-25 00:00:00 Bursitis of hip [facility] Prim kulwinder Care [facility] 2020-05-25 08:37 TYPE 2 DIABETES [facility] 2020-05-25 08:37 HYPERLIPIDEMIA, UNSPECIFIED [facility] 2020-05-25 08:37 ANXIETY DISORDER, UNSPECIFIED [facility] 2020-05-25 08:37 ESSENTIAL (PRIMARY) HYPERTENSION [facility] 2020-05-25 10:38 UNILATERAL PRIMARY [facility] Medic [facility] OSTEOARTHRITIS, RIGHT HIP 2020-05-25 10:38 PAIN IN RIGHT HIP [facility] Medic [facility] 2020-05-25 10:38 OTHER BURSITIS OF HIP, RIGHT HIP [facility] 2020-06-02 00:00:00 FIT DNA [facility] Prim k[facility] Care [facility] 2020-07-18 13:00 PAIN IN RIGHT HIP [facility] Medic [facility] 2020-07-18 13:45 PAIN IN RIGHT HIP [facility] Medic [facility] 2020-07-25 11:45 PAIN IN RIGHT HIP [facility] Medic [facility] 2020-07-26 00:00:00 Nonsuppurative otitis media, not [facility] Primary Care specified as acute or chronic [facility] 2020-07-26 00:00:00 Tinnitus, unspecified [facility] 2020-07-26 00:00:00 Unspecified nonsuppurative [facility] Primary Care otitis media, unspecified ear [facility] 2020-07-26 00:00:00 Tinnitus, bilateral [facility] 2020-07-26 00:00:00 Deviated nasal septum [facility] P rim[facility] Care [facility] 2020-07-26 00:00:00 Alcohol intake [facility] Prim k[facility] Care [facility] 2020-07-26 00:00:00 Health-related behavior [facility] Primary Care [facility] 2020-07-26 00:00:00 Tobacco use and exposure [facility] 2020-07-26 00:00:00 Exercise [facility] Prim [facility] 2020-07-26 00:00:00 Details of drug misuse behavior idb [facility] Primary Care [facility] 2020-07-26 00:00:00 Current every day smoker [facility] Primary Care [facility] 2020-07-26 00:00:00 Bilateral tinnitus [facility] Prim kulwinder [facility] 2020-07-26 00:00:00 Serous otitis media [facility] 2020-08-01 11:00 PAIN IN RIGHT HIP [facility] Medic [facility] 2020-08-15 13:30 PAIN IN RIGHT HIP [facility] Medic [facility] 2020-08-22 13:45 PAIN IN RIGHT HIP [facility] 2020-09-04 13:19 VIRAL INTESTINAL INFECTION, [facility] UNSPECIFIED 2020-09-04 13:19 IRON DEFICIENCY ANEMIA, [facility] UNSPECIFIED 2020-09-04 13:19 TYPE 2 DIABETES MELLITUS W [facility] DIABETIC CHRONIC KIDNEY 2020-09-04 13:19 DEFICIENCY OF OTHER SPECIFIED B [facility] GROUP VITAMINS 2020-09-04 13:19 HYPERLIPIDEMIA, UNSPECIFIED [facility] 2020-09-04 13:19 DEHYDRATION [facility] 2020-09-04 13:19 HYPOKALEMIA [facility] 2020-09-04 13:19 NICOTINE DEPENDENCE, CIGARETTES, [facility] UNCOMPLICATED 2020-09-04 13:19 HYPERTENSIVE CHRONIC KIDNEY [facility] DISEASE W STG 1-4/UNSP 2020-09-04 13:19 ACUTE KIDNEY FAILURE, [facility] UNSPECIFIED 2020-09-04 13:19 CHRONIC KIDNEY DISEASE, [facility] UNSPECIFIED 2020-09-04 13:19 UNSPECIFIED INJURY OF HEAD, [facility] INITIAL ENCOUNTER 2020-09-04 13:19 FALL ON SAME LEVEL, UNSPECIFIED, [facility] INITIAL ENCOUNTER 2020-09-04 13:[address] [facility] NON-INSTITUTIONAL RESIDENCE ANGELINA 2020-09-04 13:19 CONTACT W AND EXPOSURE TO [facility] VIRAL COMMUNICABLE D 2020-09-04 13:19 PRSNL HX OF TIA (TIA), AND CEREB [facility] INFRC W/O RESID D 2020-09-08 00:00:00 Diabetes mellitus with renal [facility] Primary Care manifestations, type II or [facility] unspecified type, not stated as uncontrolled 2020-09-08 00:00:00 Diabetes mellitus with [facility] Primary Care neurological manifestations, type [facility] II or unspecified type, not stated as uncontrolled 2020-09-08 00:00:00 Hypopotassemia [facility] Prim kulwinder Care [facility] 2020-09-08 00:00:00 Tobacco use disorder [facility] Pr imary Care [facility] 2020-09-08 00:00:00 Cognitive deficits as late [facility] Primary Care effect of cerebrovascular disease [facility] 2020-09-08 00:00:00 Other and unspecified [facility] P [facility] Care noninfectious gastroenteritis and [facility] colitis 2020-09-08 00:00:00 Other shock without mention of [facility] Primary Care trauma [facility] 2020-09-08 00:00:00 Anemia, unspecified [facility] Care [facility] 2020-09-08 00:00:00 Type 2 diabetes mellitus with [facility] Primary Care other diabetic kidney [facility] complication 2020-09-08 00:00:00 Type 2 diabetes mellitus with [facility] Primary Care diabetic neuropathy, unspecified [facility] 2020-09-08 00:00:00 Hypokalemia [facility] Prim kulwinder Care [facility] 2020-09-08 00:00:00 Nicotine dependence, [facility] Pr imary Care unspecified, uncomplicated [facility] 2020-09-08 00:00:00 Noninfective gastroenteritis and [facility] Primary Care colitis, unspecified [facility] 2020-09-08 00:00:00 Hypovolemic shock [facility] Prim kulwinder [facility] 2020-09-08 00:00:00 Gastroenteritis [facility] Prim kulwinder [facility] 2020-09-08 00:00:00 Anemia [facility] 2020-09-08 00:00:00 Autonomic [facility] diabetes mellitus [facility] 2020-09-08 00:00:00 Tobacco dependence syndrome [facility] Primary Care [facility] Allergies date description facility adhesive tape [facility] doxazosin [facility] ASPIRIN [facility] HYDROCODONE [facility] PENICILLIN V POTASSIUM [facility] METOPROLOL TARTRATE [facility] NO KNOWN ENVIRONMENTAL ALLERGIES [facility]ICILLINS [facility] OTHER [facility] HEPARIN [facility] MOLD EXTRACTS [facility] MOLD [facility] PENICILLINS [facility] PREDNISONE [facility] VARENICLINE [facility] NO ALLERGY INFORMATION AVAILABLE [facility] PENICILLINS [facility] Center SULFA (SULFONAMIDE ANTIBIOTICS) [facility] NO KNOWN ALLERGIES [facility] Center SHELLFISH [facility] WHEAT BRAN [facility] PEAS [facility] SERTRALINE [facility] WATERMELON [facility] STRAWBERRY [facility] Elavil [facility] Keflex [facility] Imitrex [facility] fentaNYL [facility] amitriptyline [facility] No Known Drug Allergies [facility] metformin [facility] ADHESIVE \T\ TAPE [facility] AMOXICILLIN [facility] ASPIRIN [facility] LISINOPRIL [facility] POLLEN EXTRACT [facility] SULFAMETHOXAZOLE-TRIMETHOPRIM [facility] NO KNOWN ENVIRONMENTAL ALLERGIES [facility] SULFA ANTIBIOTICS [facility] OTHER [facility] NO KNOWN ALLERGIES [facility] LATEX [facility] PEAS [facility] WATERMELON [facility] STRAWBERRY [facility] No Known Drug Allergies [facility] metformin [facility] Criticality [facility] Metformin [facility] Medications date description facility 2020-05-17 00:00:00 null [facility] Prim k[facility] Care [facility] 2020-05-17 00:00:00 null [facility] Prim k[facility]inder Care [facility] 2020-05-17 00:00:00 LISINOPRIL-HYDROCHLOROTHIAZIDE [facility] Primary Care [facility] 2020-05-17 00:00:00 LISINOPRIL-HYDROCHLOROTHIAZIDE [facility] 2020-05-25 00:00:00 null [facility] Prim k[facility] 2020-05-25 00:00:00 null [facility] Prim k[facility]inder [facility] 2020-05-25 00:00:00 null [facility] Prim k[facility]winder [facility] 2020-05-25 00:00:00 null [facility] Prim [facility]inder [facility] 2020-05-25 00:00:00 null [facility] Prim kulwinder Care [facility] 2020-05-25 00:00:00 null [facility] Prim k[facility]winder [facility] 2020-05-25 00:00:00 null [facility] Prim kulwinder Care [facility] 2020-05-25 00:00:00 null [facility] Prim kulwinder Care [facility] 2020-05-25 00:00:00 null [facility] Prim [facility] 2020-05-25 00:00:00 null [facility] Prim kulwinder Care [facility] 2020-05-25 00:00:00 null [facility] Prim [facility] 2020-05-25 00:00:00 null [facility] Prim kulwinder Care [facility] 2020-05-25 00:00:00 ATORVASTATIN CALCIUM [facility] Pr imary Care [facility] 2020-05-25 00:00:00 HYDROXYZINE HCL [facility] Prim kulwinder Care [facility] 2020-05-25 00:00:00 CLOPIDOGREL BISULFATE [facility] P rimary Care [facility] 2020-05-25 00:00:00 LISINOPRIL-HYDROCHLOROTHIAZIDE [facility] Primary Care [facility] 2020-05-25 00:00:00 AMLODIPINE BESYLATE [facility] Rachel giorgi Care [facility] 2020-05-25 00:00:00 PIOGLITAZONE HCL [facility] Prim kulwinder [facility] 2020-05-25 00:00:00 AMLODIPINE BESYLATE [facility] Rachel giorgi Care [facility] 2020-05-25 00:00:00 LISINOPRIL-HYDROCHLOROTHIAZIDE [facility] Primary [facility] 2020-05-25 00:00:00 ATORVASTATIN CALCIUM [facility] Pr imary Care [facility] 2020-05-25 00:00:00 PIOGLITAZONE HCL [facility] Prim kulwinder [facility] 2020-05-25 00:00:00 CLOPIDOGREL BISULFATE [facility] P rimary Care [facility] 2020-05-25 00:00:00 HYDROXYZINE HCL [facility] Prim k[facility]winder Care [facility] 2020-07-26 00:00:00 null [facility] Prim k[facility]winder [facility] 2020-07-26 00:00:00 null [facility] Prim kulwinder Care [facility] 2020-07-26 00:00:00 FLUTICASONE PROPIONATE [facility] Primary Care [facility] 2020-07-26 00:00:00 FLUTICASONE PROPIONATE [facility] Primary Care [facility] 2020-09-04 00:00:00 Amlodipine [facility] 2020-09-04 00:00:00 Lisinopril/Hydrochlorothiazide [facility] 2020-09-04 00:00:00 Atorvastatin Calcium [facility] 2020-09-04 00:00:00 Pioglitazone Hcl [facility] 2020-09-04 00:00:00 Clopidogrel [facility] 2020-09-04 00:00:00 Meloxicam [facility] 2020-09-04 00:00:00 Hydroxyzine Hcl [facility] 2020-09-07 00:00:00 Ondansetron Odt [facility] 2020-09-07 00:00:00 Ferrous Sulfate Liquid [facility] 2020-09-07 00:00:00 Folic Acid [facility] 2020-09-08 00:00:00 null [facility] Prim [facility]inder [facility] 2020-09-08 00:00:00 null [facility] Prim k[facility]winder Care [facility] 2020-09-08 00:00:00 null [facility] Prim kulwinder Care [facility] 2020-09-08 00:00:00 null [facility] Prim kulwinder Care [facility] 2020-09-08 00:00:00 null [facility] Prim kulwinder Care [facility] 2020-09-08 00:00:00 null [facility] Prim kulwinder Care [facility] 2020-09-08 00:00:00 null [facility] Prim kulwinder Care [facility] 2020-09-08 00:00:00 null [facility] Prim kulwinder Care [facility] 2020-09-08 00:00:00 ONDANSETRON [facility] Prim k[facility]winder Care [facility] 2020-09-08 00:00:00 MELOXICAM [facility] Prim k[facility]winder [facility] 2020-09-08 00:00:00 FOLIC ACID [facility] Prim kulwinder [facility] 2020-09-08 00:00:00 FERROUS SULFATE LIQD [facility] Pr imary [facility] 2020-09-08 00:00:00 ONDANSETRON [facility] Prim kulwinder Care [facility] 2020-09-08 00:00:00 FERROUS SULFATE LIQD [facility] Pr imary [facility] 2020-09-08 00:00:00 FOLIC ACID [facility] Prim kulwinder [facility] 2020-09-08 00:00:00 MELOXICAM [facility] Prim k[facility]winder Care [facility] 2020-09-09 00:00:00 Metoclopramide [facility] Procedures date description facility 2020-05-25 00:00:00 MICROALBUMIN/CREAT RATIO [facility] Primary Care [facility] date description facility 2020-05-25 00:00:00 TSH WITH REFLEX TO FT4 [facility] Primary Care [facility] date description facility 2020-05-25 00:00:00 XR HIP UNILATERAL COMPL 2-3 [facility] Primary Care VIEWS [facility] date description facility 2020-05-25 00:00:00 COMPREHENSIVE METABOLIC PANEL [facility] date description facility 2020-05-25 00:00:00 LIPID SCREEN, FASTING [facility] P rimary Care [facility] date description facility 2020-05-25 00:00:00 HGBA1C [facility] Prim [facility] date description facility 2020-05-25 00:00:00 CBC W/Diff/Plt [facility] Prim k[facility]winder [facility] date description facility 2020-05-25 00:00:00 [facility] Prim [facility]inder [facility] date description facility 2020-06-01 00:00:00 Physical Therapy [facility] [facility] date description facility 2020-06-01 00:00:00 [facility] date description facility 2020-09-04 00:00:00 Computed tomography of head without co ntrast [facility] date description facility 2020-09-04 00:00:00 Ultrasound of retroperitoneum [facility] Results Social History date description facility 2020-05-25 00:00:00 Current every day smoker [facility] date description facility 2020-07-26 00:00:00 Current every day smoker [facility] Social History date description facility 2020-05-25 00:00:00 Current every day smoker [facility] date description facility 2020-07-26 00:00:00 Current every day smoker [facility] date description facility [phone]
== END 2020-09-09 15:41 | disposition critical access hospital (66) ==
LOC: EMS 15:40
PROVIDERS: ATTEND Surgery
DX: R11.0 Nausea (principal); R51.9 Headache, unspecified
CPT/HCPCS: A0425; A0429; A0999

== ENCOUNTER 2020-09-09 16:03 | Emergency (ER) | payer MEDICAID ==
[2020-09-09] MEDS ORDERED: METOCLOPRAMIDE 10 MG/2 ML VIAL IVP STA (16:15)
[2020-09-09] MEDS ORDERED: SODIUM CHLORIDE 0.9% 1,000 ML IV STA (16:15)
--- NOTE | 2020-09-09 16:15 | ED Physician Documentation ---
PD HPI NVD - Stated complaint Stated Complaint: NAUSEA - History obtained from History obtained from: Patient - Additonal information Additional information: 60-year-old woman with history of stroke, hypertension, hyperlipidemia, type 2 diabetes presents with nausea. She has been sick for about a week and a half now and was admitted here from the 13th through 16th of this month for vomiting associated with low blood pressures and acute kidney injury. She was discharged on Zofran which she says is slightly helpful and continues to take that. She is no longer vomiting and she describes her bowel movements is normal. Minimal central abdominal pain "from vomiting." No fevers. 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 Status post 4 C-sections. First age 12.) : None HEENT: None Psych: None Musculoskeletal: None Derm: None - Past Surgical History Past Surgical History: Yes /FACILITY SECURITY OFFICER: section - Present Medications Home Medications: Ambulatory Orders Medication Instructions Recorded Confirmed Atorvastatin Calcium [Lipitor] 80 mg PO DAILY 09/04/20 09/04/20 Clopidogrel [Plavix] 75 mg PO DAILY 09/04/20 09/04/20 Lisinopril/Hydrochlorothiazide 1 each PO DAILY 09/04/20 09/04/20 [Zestoretic 20-25 mg Tablet] Meloxicam [Mobic] 7.5 mg PO DAILY 09/04/20 09/04/20 Pioglitazone HCl [Actos] 30 mg PO DAILY 09/04/20 09/04/20 amLODIPine [Norvasc] 5 mg PO DAILY 09/04/20 09/04/20 hydrOXYzine HCL [Hydroxyzine HCl] 50 - 100 mg PO HS PRN 09/04/20 09/04/20 Ferrous Sulfate Liquid [Feosol 300 mg PO DAILYWM #30 udc 09/07/20 Liquid] Folic Acid 1 mg PO DAILY #30 tablet 09/07/20 Ondansetron Odt [Zofran Odt] 4 mg TL Q6H PRN #10 tablet 09/07/20 Metoclopramide [Reglan] 10 mg PO Q6H PRN #20 tablet 09/09/20 - Allergies Allergies/Adverse Reactions: Allergies Allergy/AdvReac Type Severity Reaction Status Date / Time metformin AdvReac Emesis Verified 09/09/20 16:17 - Social History Does the pt smoke?: Yes Smoking Status: Current every day smoker Does the pt drink ETOH?: No Does the pt have substance abuse?: No - Immunizations Immunizations are current?: Yes - POLST Patient has POLST: No POLST Status: Full Code PD ED PE NORMAL - Vitals Vital signs reviewed: Yes - General General: Alert and oriented X 3, No acute distress - HEENT HEENT: PERRL, EOMI - Neck Neck: Supple, no meningeal sign, No bony TTP - Cardiac Cardiac: RRR, No murmur - Respiratory Respiratory: No respiratory distress, Clear bilaterally - Abdomen Abdomen: Normal bowel sounds, Soft, Non tender - Back Back: No CVA TTP, No spinal TTP - Derm Derm: Normal color, Warm and dry - Extremities Extremities: No edema, No calf tenderness / cord - Neuro Neuro: Alert and oriented X 3, Normal speech Results - Vitals Vitals: Vital Signs - 24 hr 09/09/20 16:05 Temperature 37.2 C Heart Rate 77 Respiratory 16 Rate Blood Pressure 104/60 O2 Saturation 98 Oxygen O2 Source Room air - Labs Labs: Laboratory Tests 09/09/20 09/09/20 09/09/20 16:41 16:41 16:41 WBC 6.3 RBC 3.21 L Hgb 8.7 L Hct 29.2 L MCV 91.0 MCH 27.1 MCHC 29.8 L RDW 15.3 H Plt Count 295 MPV 9.6 Neut # (Auto) 4.0 Lymph # (Auto) 1.4 L Cowley # (Auto) 0.6 Eos # (Auto) 0.2 Baso # (Auto) 0.1 Absolute Nucleated RBC 0.00 Nucleated RBC % 0.0 VBG pH 7.370 VBG pCO2 45.2 VBG pO2 28.7 VBG HCO3 25.5 VBG Total CO2 26.9 VBG O2 Saturation 51.9 L VBG Base Excess 0.1 Sodium 136 Potassium 3.6 Chloride 100 L Carbon Dioxide 24 Anion Gap 12.0 BUN 16 Creatinine 1.5 H Estimated GFR (MDRD) 35 L Glucose 100 Calcium 8.6 Total Bilirubin 1.0 AST 17 ALT 12 Alkaline Phosphatase 62 Total Protein 6.7 Albumin 3.3 Globulin 3.4 Albumin/Globulin Ratio 1.0 Lipase 54 H Serum Ketones NEGATIVE PD MEDICAL DECISION MAKING - ED course ED course: 60-year-old woman presents with persistent nausea of unclear etiology. She is not vomiting anymore and her bowel movements have been normal. She persistently is nauseous though. She is never had an upper or lower endoscopy. 60-year-old woman with diabetes presents with now subacute nausea. Benign exam. Recent admission for same with acute renal failure. Her labs now are basically stable. After the administration of oral Reglan she felt much better and was hungry. Departure - Departure Disposition: 01 Home, Self Care Clinical Impression: Nausea & vomiting Qualifiers: Vomiting type: unspecified Vomiting Intractability: non-intractable Qualified Code(s): R11.2 - Nausea with vomiting, unspecified Condition: Good Record reviewed to determine appropriate education?: Yes Instructions: ED Nausea Vomiting Prescriptions: Metoclopramide [Reglan] 10 mg PO Q6H PRN #20 tablet PRN Reason: nausea or headache Comments: Labs are better today than on your last admission. It is possible that she may have what is called diabetic gastroparesis. Or some other issue. Follow-up w ith your doctor for further evaluation and treatment, consideration for upper and lower endoscopy and/or gastric emptying study. Return if worsening.
[2020-09-09] MEDS ORDERED: METOCLOPRAMIDE 10 MG TABLET PO STA (16:56)
[2020-09-09 16:59] LABS: BASOPHILS # (AUTO) 0.1 10^3/uL (0.0-0.1); BASOPHILS % (AUTO) 1.1 %; EOSINOPHILS # (AUTO) 0.2 10^3/uL (0.0-0.7); EOSINOPHILS % (AUTO) 2.4 %; HGB - HEMOGLOBIN 8.7 g/dL (12.0-16.0); LYMPHOCYTES # (AUTO) 1.4 10^3/uL (1.5-3.5); LYMPHOCYTES % (AUTO) 22.5 %; MEAN CORPUSCULAR HEMOGLOBIN 27.1 pg (27.0-31.0); MEAN CORPUSCULAR HGB CONC 29.8 g/dL (32.0-36.0); MEAN PLATELET VOLUME 9.6 fL (7.9-10.8); MONOCYTES # (AUTO) 0.6 10^3/uL (0.0-1.0); MONOCYTES % (AUTO) 9.1 %; NEUTROPHILS % (AUTO) 63.9 %; PLT - PLATELET COUNT 295 10^3/uL (130-450); RED BLOOD COUNT 3.21 10^6/uL (4.20-5.40); RED CELL DISTRIBUTION WIDTH 15.3 % (12.0-15.0); WHITE BLOOD COUNT 6.3 x10^3/uL (4.8-10.8)
[2020-09-09 17:05] LABS: VBG BASE EXCESS 0.1 mmol/L (-2 - +2); VBG PCO2 45.2 mmHg (41-51); VBG PH 7.37 (7.31-7.41); VBG PO2 28.7 mmHg (25-47); VBG TOTAL CO2 26.9 mmol/L (24-29)
[2020-09-09 17:15] LABS: ALBUMIN 3.3 g/dL (3.2-5.5); ALKALINE PHOSPHATASE 62 IU/L (42-121); ALT ALANINE AMINOTRANSFERASE 12 IU/L (10-60); AST ASPARTATE AMINOTRANSFERASE 17 IU/L (10-42); BUN - BLOOD UREA NITROGEN 16 mg/dL (6-20); CALCIUM 8.6 mg/dL (8.5-10.3); CARBON DIOXIDE - CO2 24 mmol/L (21-32); CHLORIDE 100 mmol/L (101-111); CREATININE 1.5 mg/dL (0.4-1.0); GLUCOSE 100 mg/dL (70-100); LIPASE 54 U/L (22-51); SODIUM 136 mmol/L (135-145); TOTAL PROTEIN 6.7 g/dL (6.7-8.2)
[2020-09-09 17:40] LABS: KETONES, SERUM (ACETEST) NEGATIVE (NEGATIVE)
[2020-09-09 18:20] VITALS: BP 109/58
== END 2020-09-09 18:20 | disposition home or self-care (01) ==
LOC: EDUNIT# → ED 16:03
DX: R11.2 Nausea with vomiting, unspecified (principal); I10 Essential (primary) hypertension; E78.5 Hyperlipidemia, unspecified; E11.9 Type 2 diabetes mellitus without complications; Z79.84 Long term (current) use of oral hypoglycemic drugs; Z86.73 Personal history of transient ischemic attack (TIA), and cerebral infarction without residual deficits; Z79.02 Long term (current) use of antithrombotics/antiplatelets; F17.200 Nicotine dependence, unspecified, uncomplicated
CPT/HCPCS: 36415; 80053; 82009; 82803; 83690; 85025; 99283; 99284; A9270

== ENCOUNTER 2020-09-28 08:00 | Outpatient (CLI) | payer MEDICAID ==
[2020-09-28 18:58] LABS: ALBUMIN 4.3 g/dL (3.2-5.5); ALBUMIN/GLOBULIN RATIO 1.2 (1.0-2.2); BILIRUBIN,TOTAL 1.8 mg/dL (0.2-1.0); CALCIUM 9.7 mg/dL (8.5-10.3); CREATININE 1.9 mg/dL (0.4-1.0); TOTAL PROTEIN 7.9 g/dL (6.7-8.2)
[2020-09-28 19:10] LABS: BASOPHILS % (AUTO) 0.4 %; EOSINOPHILS % (AUTO) 0.1 %; HGB - HEMOGLOBIN 11.3 g/dL (12.0-16.0); LYMPHOCYTES % (AUTO) 10.6 %; MEAN CORPUSCULAR HEMOGLOBIN 26.1 pg (27.0-31.0); MEAN CORPUSCULAR HGB CONC 29.9 g/dL (32.0-36.0); MEAN CORPUSCULAR VOLUME 87.3 fL (81.0-99.0); MONOCYTES # (AUTO) 0.7 10^3/uL (0.0-1.0); MONOCYTES % (AUTO) 7.5 %; NEUTROPHILS # (AUTO) 7.4 10^3/uL (1.5-6.6); NEUTROPHILS % (AUTO) 80.3 %; PLT - PLATELET COUNT 594 10^3/uL (130-450); RED BLOOD COUNT 4.33 10^6/uL (4.20-5.40); RED CELL DISTRIBUTION WIDTH 15.6 % (12.0-15.0); WHITE BLOOD COUNT 9.2 x10^3/uL (4.8-10.8)
== END 2020-09-28 23:59 | disposition home or self-care (01) ==
LOC: LAB.WCP 08:00
PROVIDERS: ATTEND Nurse Practitioner
DX: R63.4 Abnormal weight loss (principal); R11.2 Nausea with vomiting, unspecified; E87.6 Hypokalemia; K52.9 Noninfective gastroenteritis and colitis, unspecified
CPT/HCPCS: 36415; 80053; 85025

== ENCOUNTER 2020-10-03 09:59 | Outpatient (CLI) | payer MEDICAID | END 2020-10-03 10:00 | disposition critical access hospital (66) | LOC: EMS 09:59 | PROVIDERS: ATTEND Surgery | DX: R11.2 Nausea with vomiting, unspecified (principal) | CPT/HCPCS: A0425; A0429 ==

== ENCOUNTER 2020-10-03 10:16 | Inpatient (IN) | payer MEDICAID ==
[2020-10-03] MEDS ORDERED: SODIUM CHLORIDE 0.9% 1,000 ML IV STA ×2 (12:15→13:42)
[2020-10-03] MEDS ORDERED: ONDANSETRON 4 MG/2 ML VIAL IVP STA (12:15)
[2020-10-03] MEDS ORDERED: METOCLOPRAMIDE 10 MG/2 ML VIAL IVP STA (12:29)
[2020-10-03 12:32] LABS: BASOPHILS # (AUTO) 0.1 10^3/uL (0.0-0.1); BASOPHILS % (AUTO) 0.5 %; EOSINOPHILS % (AUTO) 0.3 %; HGB - HEMOGLOBIN 11.5 g/dL (12.0-16.0); LYMPHOCYTES # (AUTO) 1.4 10^3/uL (1.5-3.5); LYMPHOCYTES % (AUTO) 15.1 %; MEAN CORPUSCULAR HEMOGLOBIN 27.3 pg (27.0-31.0); MEAN CORPUSCULAR VOLUME 85.1 fL (81.0-99.0); MEAN PLATELET VOLUME 9.7 fL (7.9-10.8); MONOCYTES # (AUTO) 0.9 10^3/uL (0.0-1.0); MONOCYTES % (AUTO) 9.5 %; NEUTROPHILS % (AUTO) 73.8 %; PLT - PLATELET COUNT 400 10^3/uL (130-450); RED BLOOD COUNT 4.22 10^6/uL (4.20-5.40); RED CELL DISTRIBUTION WIDTH 15.2 % (12.0-15.0); WHITE BLOOD COUNT 9.5 x10^3/uL (4.8-10.8)
[2020-10-03] MEDS ORDERED: IOVERSOL 320 50 ML VIAL ONE (12:44)
--- NOTE | 2020-10-03 12:44 | ED Physician Documentation ---
History of Present Illness - Stated complaint Stated Complaint: N/V - Chief complaint Chief Complaint: General - History obtained from History obtained from: Patient, EMS - History of Present Illness Timing: How many weeks ago (3) Pain level max: 3 Pain level now: 3 - Additonal information Additional information: 60-year-old female presents to the emergency department with nausea and vomiting for the past 3 weeks. Seen here multiple times for same. She states she has not yet seen her doctor. She states that she is supposed to have an endoscopy, but this has not been scheduled yet. Tentatively diagnosed with diabetic gastroparesis. No fevers. Abdominal pain is only with vomiting. No diarrhea. No recent antibiotics. Worse with eating and drinking. Better with rest Review of Systems Constitutional: denies: Fever, Chills Respiratory: denies: Cough GI: reports: Nausea, Vomiting. denies: Diarrhea Musculoskeletal: denies: Neck pain, Back pain Neurologic: denies: Headache PD PAST MEDICAL HISTORY - Past Medical History Cardiovascular: Hypertension Respiratory: None Neuro: CVA Endocrine/Autoimmune: Type 2 diabetes GI: None CHANGE MANAGEMENT: Other : None HEENT: None Psych: None Musculoskeletal: None Derm: None - Past Surgical History Past Surgical History: Yes /CHANGE MANAGEMENT: section Derm: Skin cancer surgery - Present Medications Home Medications: Ambulatory Orders Medication Instructions Recorded Confirmed Atorvastatin Calcium [Lipitor] 80 mg PO DAILY 09/04/20 09/04/20 Clopidogrel [Plavix] 75 mg PO DAILY 09/04/20 09/04/20 Lisinopril/Hydrochlorothiazide 1 each PO DAILY 09/04/20 09/04/20 [Zestoretic 20-25 mg Tablet] Meloxicam [Mobic] 7.5 mg PO DAILY 09/04/20 09/04/20 Pioglitazone HCl [Actos] 30 mg PO DAILY 09/04/20 09/04/20 amLODIPine [Norvasc] 5 mg PO DAILY 09/04/20 09/04/20 hydrOXYzine HCL [Hydroxyzine HCl] 50 - 100 mg PO HS PRN 09/04/20 09/04/20 Ferrous Sulfate Liquid [Feosol 300 mg PO DAILYWM #30 udc 09/07/20 Liquid] Folic Acid 1 mg PO DAILY #30 tablet 09/07/20 Ondansetron Odt [Zofran Odt] 4 mg TL Q6H PRN #10 tablet 09/07/20 Metoclopramide [Reglan] 10 mg PO Q6H PRN #20 tablet 09/09/20 - Allergies Allergies/Adverse Reactions: Allergies Allergy/AdvReac Type Severity Reaction Status Date / Time acetaminophen [From Percocet] AdvReac Emesis Verified 10/03/20 10:34 metformin AdvReac Emesis Verified 10/03/20 10:34 oxycodone [From Percocet] AdvReac Emesis Verified 10/03/20 10:34 - Social History Does the pt smoke?: No Smoking Status: Never smoker Does the pt drink ETOH?: No Does the pt have substance abuse?: No - Immunizations Immunizations are current?: Yes - POLST Patient has POLST: No POLST Status: Full Code PD ED PE NORMAL - Vitals Vital signs reviewed: Yes - General General: Alert and oriented X 3, No acute distress, Well developed/nourished - HEENT HEENT: Moist mucous membranes - Neck Neck: Supple, no meningeal sign - Cardiac Cardiac: RRR, Strong equal pulses - Respiratory Respiratory: No respiratory distress, Clear bilaterally - Abdomen Abdomen: Normal bowel sounds, Soft, Non tender, Non distended - Derm Derm: Warm and dry, No rash - Extremities Extremities: No edema - Neuro Neuro: Alert and oriented X 3 - Psych Psych: Normal mood, Normal affect Results - Vitals Vitals: Vital Signs - 24 hr 10/03/20 10/03/20 10/03/20 10:20 10:32 12:02 Temperature 36.0 C L Heart Rate 92 98 93 Respiratory 16 16 16 Rate Blood Pressure 115/72 108/84 H 116/76 O2 Saturation 95 95 95 10/03/20 14:00 Temperature 36.4 C L Heart Rate 83 Respiratory 14 Rate Blood Pressure 128/88 H O2 Saturation 96 Oxygen O2 Source Room air - Labs Labs: Laboratory Tests 10/03/20 10/03/20 10:43 12:39 WBC 9.5 RBC 4.22 Hgb 11.5 L Hct 35.9 L MCV 85.1 MCH 27.3 MCHC 32.0 RDW 15.2 H Plt Count 400 MPV 9.7 Neut # (Auto) 7.0 H Lymph # (Auto) 1.4 L [place] # (Auto) 0.9 Eos # (Auto) 0.0 Baso # (Auto) 0.1 Absolute Nucleated RBC 0.00 Nucleated RBC % 0.0 Sodium 134 L Potassium 2.3 L* Chloride 78 L* Carbon Dioxide 36 H Anion Gap 20.0 H BUN 39 H Creatinine 1.7 H Estimated GFR (MDRD) 31 L Glucose 112 H Calcium 9.1 Phosphorus 2.7 Magnesium 2.5 Total Bilirubin 1.4 H AST 19 ALT < 10 L Alkaline Phosphatase 51 Total Protein 7.1 Albumin 3.5 Globulin 3.6 Albumin/Globulin Ratio 1.0 Lipase 48 PD MEDICAL DECISION MAKING - ED course Complexity details: reviewed results, re-evaluated patient, considered differential, d/w patient ED course: 60-year-old female with what appears to be malignant thickening of the omentum. It is recommended that she have a laparoscopic biopsy. CT-guided omental biopsy would be an option, but radiology felt laparoscopic would likely be better. I discussed the case with Dr. Brooke, general surgery on-call who will plan on taking the patient to the OR tomorrow after her electrolytes have been corrected. Discussed the case with Dr. Forbes, hospitalist who accepts. Patient will need IV fluids, potassium replacements and further care before she is stable for the OR. This document was made in part using voice recognition software. While efforts are made to proofread this document, sound alike and grammatical errors may occur. [employer] respiratory panel ordered to rapidly test specifically for COVID-19 in this patient who is expected to be hospitalized. IMPRESSION: Quality of visualization is somewhat reduced by absence of intravenous contrast. The current study shows definite likely malignant thickening of the omentum best seen at the left upper quadrant, ventral to the spleen. This also extends inferiorly along the anterior peritoneal space into the pelvis. There is a small amount of ascites, insufficient for safe ultrasound-guided aspiration. The exact etiology of this presumed malignant process is uncertain. CT-guided omental biopsy, versus laparoscopic biopsy appears warranted. Chest plain film assessment also is recommended to assess for lung mass. Asymmetrically small right kidney, possibly congenital. Departure - Departure Disposition: 66 [facility] DC/Xfer Clinical Impression: Omental metastasis, Hypokalemia, Dehydration, Hypochloremia Condition: Stable
[2020-10-03 13:31] LABS: ALBUMIN 3.5 g/dL (3.2-5.5); ALKALINE PHOSPHATASE 51 IU/L (42-121); ALT ALANINE AMINOTRANSFERASE < 10 IU/L (10-60); AST ASPARTATE AMINOTRANSFERASE 19 IU/L (10-42); BILIRUBIN,TOTAL 1.4 mg/dL (0.2-1.0); BUN - BLOOD UREA NITROGEN 39 mg/dL (6-20); CALCIUM 9.1 mg/dL (8.5-10.3); CARBON DIOXIDE - CO2 36 mmol/L (21-32); CREATININE 1.7 mg/dL (0.4-1.0); GLUCOSE 112 mg/dL (70-100); LIPASE 48 U/L (22-51); MAGNESIUM 2.5 mg/dL (1.7-2.8); PHOSPHORUS 2.7 mg/dL (2.5-4.6); TOTAL PROTEIN 7.1 g/dL (6.7-8.2)
[2020-10-03 13:33] LABS: CHLORIDE 78 mmol/L (101-111)
[2020-10-03] MEDS ORDERED: POTASSIUM CHLOR 10 MEQ/100 ML 10 MEQ/100 ML BAG IV STA (13:42)
--- NOTE | 2020-10-03 14:34 | CT Report ---
PROCEDURE: Abdomen/Pelvis WO INDICATIONS: vomiting x 3 weeks TECHNIQUE: Noncontrast 5 mm thick sections acquired from the diaphragms to the symphysis. 5 mm coronal and sagi ttal reformats were then performed. For radiation dose reduction, the following was used: automated exposure control, adjustment of mA and/or kV according to patient size. COMPARISON: None. FINDINGS: Image quality: Quality of visualization is limited by the absence of intravenous contrast. ABDOMEN: Lung bases: Lung bases are clear except for what appears to be a small degree of atelectasis at the lung bases, right slightly greater than left. Heart size is normal. Solid organs: Liver and spleen are normal in size. Gallbladder is normal Pancreas is normal in con tours. No adrenal nodules. Kidneys are asymmetric in size abnormally small on the right, as was als o seen on recent ultrasound scanning 09/04/2020, without hydronephrosis or nephrolithiasis. Peritoneum and bowel: Unenhanced bowel loops demonstrate normal wall thickness and caliber. No free air. Note is made of a relatively small amount of free fluid, water in density, in the perihepatic space. Within the peritoneal space is seen at the left upper quadrant and through the anterior perit lua space involving the omentum is a pattern of peritoneal carcinomatosis, with peritoneal and omen yumiko thickening, solid in appearance. This is most pronounced at the left upper quadrant anterior to t he spleen. Nodes and vessels: No retroperitoneal or mesenteric adenopathy by size criteria. Aorta and inferior vena cava are normal in caliber. Miscellaneous: No ventral hernias. PELVIS: Genitourinary: Bladder wall thickness is normal. No adnexal mass lesion is identified. Miscellaneous: No inguinal hernias or adenopathy. The pattern of omental carcinomatosis and a small amount of free fluid deep within the peritoneal space extends into the pelvis. Asymmetrically small right kidney, compensatory hypertrophy left kidney, Chronic in appearance. Bones: No suspicious bony lesions. No vertebral body compression fractures. IMPRESSION: Quality of visualization is somewhat reduced by absence of intravenous contrast. The current study sh ows definite likely malignant thickening of the omentum best seen at the left upper quadrant, ventral to the spleen. This also extends inferiorly along the anterior peritoneal space into the pelvis. The re is a small amount of ascites, insufficient for safe ultrasound-guided aspiration. The exact etiology of this presumed malignant process is uncertain. CT-guided omental biopsy, versus laparoscopic biopsy appears warranted. Chest plain film assessment also is recommended to assess for lung mass. Asymmetrically small right kidney, possibly congenital. Note: Findings called and discussed personally with the emergency room physician caring for the patie nt at time of this dictation. Reviewed by: Maldonado Benson MD on 10/03/2020 2:32 PM PST Approved by: Maldonado Benson MD on 10/03/2020 2:32 PM PST Station ID: [id number]
[2020-10-03] MEDS ORDERED: HYDROmorphone 0.5 MG/0.5 ML SYRINGE IVP PRN (14:46)
[2020-10-03] MEDS ORDERED: ONDANSETRON ODT 4 MG TABLET TL PRN (14:46)
--- NOTE | 2020-10-03 15:58 | HISTORY & PHYSICAL EXAMINATION ---
Chief Complaint - Chief Complaint Chief Complaint: Nausea/Vomiting History of Present Illness - Admitted From Admitted From:: ED - History Obtained From Records Reviewed: [facility] History obtained from: Patient Exam Limitations: None - History of Present Illness HPI Comment/Other: This is a 60 y/o F with a history of Type 2 DM, HTN, hyperlipidemia, and CVA x2 who presented to the ED via EMS for intractable nausea and vomiting. She has been seen multiple times for this reason since mid-August. She says that she has been vomiting about every 20 minutes for the last 3 weeks. She says the vomit is green. Oral intake aggravates her symptoms, there are no alleviating factors. She still has an appetite but is unable to hold anything down. She has lost 20 lbs in the last month. She denies any hemoptysis, chest pain, shortness of breath, palpitations. Her CT abdomen/pelvis w/o contrast revealed definite likely malignant thickening of the omentum best seen at the left upper quadrant, ventral to the spleen that also extends inferiorly along the anterior peritoneal space into the pelvis. Her chemistry panel is notable for an elevated BUN (39), GFR of 31, elevated creatinine (1.7, baseline 1.2-1.5), hypokalemia (2.3) and hypochloremia (78). She is being admitted to have her electrolyte imbalance corrected before being taken to the OR to have a laproscopic biopsy. History - Past Medical History Cardiovascular: reports: Hypertension Respiratory: reports: None Neuro: reports: CVA (x2, no focal deficits) Endocrine/Autoimmune: reports: Type 2 diabetes GI: reports: None RESIDENCE LIFE DIRECTOR: reports: Other : reports: None HEENT: reports: None Psych: reports: None Musculoskeletal: reports: None Derm: reports: None MRSA Hx?: No - Past Surgical History /RESIDENCE LIFE DIRECTOR: reports: section (x4) Derm: reports: Skin cancer surgery (upper back for melanoma) - Family & Social History Family History Comment/Other: She is adopted. As such she does not have any familial history for parents or siblings. Of 4 children they are all healthy without any major medical illnesses. Living arrangement: Assisted living Living Situation: With caregiver(s) Social History Notes: She smokes anywhere from 5 to 10 cigarettes a day. Has smoked for close to 50 years. She is used recreational substances in the past i ncluding cocaine. None for over a decade. She has no history of alcohol abuse. She used to live with her daughter, and daughter could no longer take care of her and she was placed in [facility] facility in April 2020. - Substance History Use: Uses substance without health or social issues: Tobacco Abuse: Recurrent use of substance despite neg consequences: NONE Tobacco Details: Cigarettes - POLST Patient has POLST: No POLST Status: Full Code Meds/Allgy - Home Medications Home Medications: Ambulatory Orders Medication Instructions Recorded Confirmed Atorvastatin Calcium [Lipitor] 80 mg PO DAILY 09/04/20 10/03/20 Clopidogrel [Plavix] 75 mg PO DAILY 09/04/20 10/03/20 Lisinopril/Hydrochlorothiazide 20 - 25 mg PO DAILY 09/04/20 10/03/20 [Zestoretic 20-25 mg Tablet] Meloxicam [Mobic] 7.5 mg PO DAILY 09/04/20 10/03/20 Pioglitazone HCl [Actos] 30 mg PO DAILY 09/04/20 10/03/20 amLODIPine [Norvasc] 5 mg PO DAILY 09/04/20 10/03/20 hydrOXYzine HCL [Hydroxyzine HCl] 50 - 100 mg PO HS PRN 09/04/20 10/03/20 Ferrous Sulfate Liquid [Feosol 300 mg PO DAILYWM #30 udc 09/07/20 10/03/20 Liquid] Folic Acid 1 mg PO DAILY #30 tablet 09/07/20 10/03/20 Ondansetron Odt [Zofran Odt] 4 mg TL Q6H PRN #10 tablet 09/07/20 10/03/20 Metoclopramide [Reglan] 10 mg PO Q6H PRN #20 tablet 09/09/20 10/03/20 Mirtazapine [Remeron] 7.5 mg PO DAILY PM 10/03/20 10/03/20 Omeprazole [PriLOSEC] 20 mg PO BID 10/03/20 10/03/20 - Allergies Allergies/Adverse Reactions: Allergies Allergy/AdvReac Type Severity Reaction Status Date / Time acetaminophen [From Percocet] AdvReac Emesis Verified 10/03/20 10:34 metformin AdvReac Emesis Verified 10/03/20 10:34 oxycodone [From Percocet] AdvReac Emesis Verified 10/03/20 10:34 Review of Systems - Constitutional Constitutional: reports: Fatigue, Weakness, Weight loss. denies: Fever, Chills, Poor appetite - Eyes Eyes: denies: Pain, Vision loss - Ears, Nose & Throat Ears, Nose & Throat: denies: Ear pain, Tinnitus, Nasal pain, Nasal discharge, Sore throat - Cardiovascular Cariovascular: denies: Palpitations, Chest pain, Lightheadedness - Respiratory Respiratory: denies: Cough, Hemoptysis, SOB at rest - Gastrointestinal Gastrointestinal: reports: Constipation, Vomiting. denies: Abdominal pain, Abdominal distention, Diarrhea, Change in bowel habits, Black stools, Bloody st ools - Genitourinary Genitourinary: reports: Incontinence. denies: Dysuria, Hematuria - Musculoskeletal Musculoskeletal: denies: Muscle pain, Muscle aches - Integumentary Integumentary: denies: Rash - Neurological Neurological: denies: Headache, Dizziness, Numbness - Psychiatric Psychiatric: reports: Anxiety (She gets anxious anytime she has to do anythig by herself (stand up, get dressed, go to the bathroom).). denies: Depression - Endocrine Endocrine: denies: Polyuria - Hematologic/Lymphatic Hematologic/Lymphatic: denies: Bruising, Blood clots, Lymphadenopathy Prior Level of Functionality: Was able to feed and dress herself prior to the onset of symptoms. Exam - Vital Signs Vital Signs: Vital Signs x48h Temp Pulse Resp BP Pulse Ox 10/03/20 14:54 36.2 C L 90 18 121/64 98 10/03/20 14:00 36.4 C L 83 14 128/88 H 96 10/03/20 12:02 93 16 116/76 95 10/03/20 10:32 98 16 108/84 H 95 10/03/20 10:20 36.0 C L 92 16 115/72 95 Conclusion/Plan - Problem List (1) Omental metastasis Conclusion/Plan: She has been experiencing intractable vomiting since mid-August. Abdominal /Pelvis CT showed what appears to be malignant thickening of the omentum with unknown etiology. Plan: Laparoscopic biopsy in the OR after correcting her electrolyte imbalance. Alpha fetoprotien, CA 125, CEA will be ordered. (2) Hypochloremia Conclusion/Plan: Currently 78. Probably secondary to intractable vomiting. Plan: Will be given potassium chloride and levels monitored. (3) Hypokalemia Conclusion/Plan: Her potassium level is 2.3 in the ED. Probably secondary to intractable vomiting. Plan: Will be given potassium chloride and levels will be monitored. (4) Nausea & vomiting Conclusion/Plan: Potentially secondary to bowel obstruction due to malignant carcinoma. Plan: Will give zofran and reglan as needed. Pic line will be placed. Qualifiers: Vomiting type: unspecified Vomiting Intractability: intractable Qualified Code(s): R11.2 - Nausea with vomiting, unspecified (5) Type 2 DM with CKD and hypertension Conclusion/Plan: She takes pioglitazone at home for type 2 diabetes. Her blood glucose in the ED is 112. Will hold home medication and start her on a sliding scale if she is consistently hyperglycemic. BP has ranged from 116/76 to 132/74 since being here today. Lisinopril/hydrochlorithiazide and amlodipine will be held for soft blood pressure. Will restart when her blood pressure is more consistently elevated. (6) Anemia Conclusion/Plan: This is a chronic condition that she takes supplements for. Likely secondary to anemia of chronic disease. Plan: Will check B12, folate, iron levels and replace if low. Qualifiers: Anemia type: iron deficiency (7) Hyperlipidemia Conclusion/Plan: Will continue atorvastatin while hospitalized. Qualifiers: Hyperlipidemia type: unspecified Qualified Code(s): E78.5 - Hyperlipidemia, unspecified (8) Acute kidney injury Conclusion/Plan: GFR is 31 and creatinine is 1.7 in ED. Plan: Fluid maintenance. Labs will be monitored. - Lab Results Fish Bones: 10/03/20 10:43 10/03/20 12:39 Core Measures - Anticipated LOS I expect patient to be DC'd or transferred within 96 hours.: Yes - DVT/VTE - Prophylaxis VTE/DVT Device ordered at admit?: Yes
[2020-10-03 16:04] LABS: C. PNEUMONIAE- RESP PCR PANEL NOT DETECTED
[2020-10-03] MEDS: SODIUM CHLORIDE FLUSH 0.9% 10 ML SYRINGE IVP SCH (16:18)
[2020-10-03] MEDS: POTASSIUM CHLOR 10 MEQ/100 ML 10 MEQ/100 ML BAG IV SCH ×6 (16:19→23:42)
[2020-10-03 16:48] LABS: MUDS CUTOFF CONCENTRATIONS CUTOFF CONC BELOW:
[2020-10-03 16:51] LABS: BILIRUBIN,URINE NEGATIVE (NEGATIVE); GLUCOSE, URINE (UA) NEGATIVE (NEGATIVE); KETONES,URINE (UA) 15 mg/dL (NEGATIVE); LEUKOCYTE ESTERASE, URINE LARGE (NEGATIVE); NITRITE,URINE POSITIVE (NEGATIVE); OCCULT BLOOD,URINE TRACE-INTA (NEGATIVE); PROTEIN,URINE TRACE mg/dL (NEGATIVE); UROBILINOGEN,URINE 2 E.U./dL (NORMAL)
[2020-10-03 16:54] LABS: CLARITY,URINE HAZY (CLEAR)
[2020-10-03 17:05] LABS: AMPHETAMINE SCREEN,URINE NEGATIVE (NEGATIVE); BENZODIAZEPINES SCREEN, URINE NEGATIVE (NEGATIVE); COCAINE SCREEN URINE NEGATIVE (NEGATIVE); METHADONE SCREEN, URINE NEGATIVE (NEGATIVE); METHAMPHETAMINES SCREEN, URINE NEGATIVE (NEGATIVE); OPIATE SCREEN, URINE NEGATIVE (NEGATIVE); OXYCODONE SCREEN, URINE NEGATIVE (NEGATIVE); PROPOXYPHENE SCREEN, URINE NEGATIVE (NEGATIVE); TRICYCLIC ANTIDEPRESSANT,URINE NEGATIVE (NEGATIVE)
[2020-10-03 17:09] LABS: BACTERIA,URINE Many /HPF (None Seen); RBC,URINE 0-5 /HPF (0-5); SQUAMOUS EPITHELIAL CELL,UR NONE SEEN (<= Few)
--- NOTE | 2020-10-03 18:19 | PHARMACY PROGRESS NOTE ---
- Best Possible Medication History Admit Date and Time: 10/03/20 1446 Processed by: Pharmacy Medication History completed: Yes Patient Interview: Completed Secondary Source(s): Insurance records, Facility MAR as ONLY source As the person ultimately responsible for medication therapy, providers are able to order a medication from an existing home medication list in [facility] via the "Reconcile Routine" prior to Confirmation of that medication by technical support agent. Such practice is discouraged except when the physician, in their clinical judgment, deems that a medical need exists for a medication without regard to previous use.
[2020-10-04] MEDS: POTASSIUM CHLOR 10 MEQ/100 ML 10 MEQ/100 ML BAG IV SCH ×2 (01:17→03:10)
[2020-10-04] MEDS: SODIUM CHLORIDE FLUSH 0.9% 10 ML SYRINGE IVP SCH ×3 (05:02→17:45)
[2020-10-04 05:09] LABS: CALCIUM 7.6 mg/dL (8.5-10.3); CREATININE 1.2 mg/dL (0.4-1.0)
[2020-10-04 05:12] LABS: BASOPHILS # (AUTO) 0.1 10^3/uL (0.0-0.1); BASOPHILS % (AUTO) 0.7 %; EOSINOPHILS # (AUTO) 0.1 10^3/uL (0.0-0.7); EOSINOPHILS % (AUTO) 1.5 %; HGB - HEMOGLOBIN 9.1 g/dL (12.0-16.0); LYMPHOCYTES # (AUTO) 1.3 10^3/uL (1.5-3.5); MEAN CORPUSCULAR HEMOGLOBIN 26.4 pg (27.0-31.0); MEAN CORPUSCULAR HGB CONC 30.8 g/dL (32.0-36.0); MEAN CORPUSCULAR VOLUME 85.5 fL (81.0-99.0); MONOCYTES # (AUTO) 0.7 10^3/uL (0.0-1.0); NEUTROPHILS # (AUTO) 5.3 10^3/uL (1.5-6.6); PLT - PLATELET COUNT 298 10^3/uL (130-450); RED BLOOD COUNT 3.45 10^6/uL (4.20-5.40); RED CELL DISTRIBUTION WIDTH 15.1 % (12.0-15.0); WHITE BLOOD COUNT 7.5 x10^3/uL (4.8-10.8)
--- NOTE | 2020-10-04 08:17 | PROVIDER PROGRESS NOTE ---
Assessment/Plan - Problem List (1) Omental metastasis Assessment/Plan: Patient had a laparoscopic omental biopsy done today by Dr. Jinny Mabry. Dr. Mabry reported that the omentum was friable and bleed easily She was cleared for discharge from a surgical point of view once her nausea/vomiting resolved and her renal function improved. She recommended emergent referral to gynecological oncology and medical on cology. (2) Acute kidney injury Assessment/Plan: Patient's creatinine today was 1.2 with a GFR of 46 This was an improvement from a creatinine of 1.7 yesterday and GFR of 31. We will continue IV hydration with normal saline. (3) Dehydration Assessment/Plan: Initially patient was on normal saline. This was changed to D5 plus normal saline with 20 mEq of potassium Because the patient was hypoglycemic with blood glucose of 59 (4) Nausea & vomiting Qualifiers: Vomiting type: unspecified Vomiting Intractability: intractable Qualified Code(s): R11.2 - Nausea with vomiting, unspecified (5) Hypokalemia Assessment/Plan: Patient's potassium upon presentation was 2.3. This was corrected and recheck today is 3.7. The patient has been maintained on IV hydration of D5 W+ normal saline +20 mEq of potassium chloride (6) Type 2 DM with CKD and hypertension Assessment/Plan: Sliding scale insulin, Accu-Cheks. Patient's diet was advanced to low fiber soft diet. (7) Hyperlipidemia Qualifiers: Hyperlipidemia type: unspecified Qualified Code(s): E78.5 - Hyperlipidemia, unspecified Assessment/Plan: Will resume patient's Atorvastatin when appropriate to do so. - Current Meds Current Meds: Current Medications Generic Name Dose Route Start Last Admin Trade Name Saranq PRN Reason Stop Dose Admin Sodium Chloride 10 ml 10/03/20 17:00 10/04/20 05:02 Sodium Chloride Flush 0.9% 10 Ml Syringe IVP 10 ml [id number],[id number] [facility] Administration - Lab Result Fish Bone Diagrams: 10/06/20 04:23 10/06/20 04:23 Subjective - Subjective Patient Reports: Other (Patient was resting comfortably in bed at time of exam. She has a very flat affect. She denies any abd pain, nausea, vomiting, fever or chills. He had just returned from a laparoscopic omental biopsy) Objective Vital Signs: Vital Signs - 24 hr 10/03/20 10/03/20 10/03/20 10:20 10:32 12:02 Temperature 36.0 C L Heart Rate 92 98 93 Heart Rate [ Brachial] Respiratory 16 16 16 Rate Blood Pressure 115/72 108/84 H 116/76 Blood Pressure [Right Brachial artery] O2 Saturation 95 95 95 10/03/20 10/03/20 10/03/20 14:00 14:54 16:14 Temperature 36.4 C L 36.2 C L 37.2 C Heart Rate 83 90 Heart Rate [ 84 Brachial] Respiratory 14 18 18 Rate Blood Pressure 128/88 H 121/64 Blood Pressure 132/74 H [Right Brachial artery] O2 Saturation 96 98 98 10/04/20 00:00 Temperature 36.7 C Heart Rate Heart Rate [ 91 Brachial] Respiratory 14 Rate Blood Pressure Blood Pressure 120/71 [Right Brachial artery] O2 Saturation 95 Oxygen O2 Source Room air I&O (Last 24 Hrs): Intake and Output Totals x24h 10/02/20 10/03/20 10/04/20 23:59 23:59 23:59 Intake Total 2600 300 Output Total 500 Balance 2100 300 General: Alert, Oriented x3, No acute distress HEENT: PERRLA, EOMI Neck: No JVD Neuro: Alert, Non Focal, Oriented Times 3 Cardiovascular: Regular rate Respiratory: Chest non-tender, No respiratory distress, Breath sounds nml Abdomen: Normal bowel sounds, Soft Extremities: No clubbing, No edema Skin: No rashes - Results Results: Laboratory Results WBC 7.5 x10^3/uL (4.8-10.8) 10/04/20 04:49 RBC 3.45 10^6/uL (4.20-5.40) L 10/04/20 04:49 Hgb 9.1 g/dL (12.0-16.0) L 10/04/20 04:49 Hct 29.5 % (37.0-47.0) L 10/04/20 04:49 MCV 85.5 fL (81.0-99.0) 10/04/20 04:49 MCH 26.4 pg (27.0-31.0) L 10/04/20 04:49 MCHC 30.8 g/dL (32.0-36.0) L 10/04/20 04:49 RDW 15.1 % (12.0-15.0) H 10/04/20 04:49 Plt Count 298 10^3/uL (130-450) 10/04/20 04:49 MPV 9.0 fL (7.9-10.8) 10/04/20 04:49 Neut # (Auto) 5.3 10^3/uL (1.5-6.6) 10/04/20 04:49 Lymph # (Auto) 1.3 10^3/uL (1.5-3.5) L 10/04/20 04:49 [place] # (Auto) 0.7 10^3/uL (0.0-1.0) 10/04/20 04:49 Eos # (Auto) 0.1 10^3/uL (0.0-0.7) 10/04/20 04:49 Baso # (Auto) 0.1 10^3/uL (0.0-0.1) 10/04/20 04:49 Absolute Nucleated RBC 0.00 x10^3/uL 10/04/20 04:49 Nucleated RBC % 0.0 /100WBC 10/04/20 04:49 Sodium 130 mmol/L (135-145) L 10/04/20 04:49 Potassium 3.7 mmol/L (3.5-5.0) 10/04/20 04:49 Chloride 90 mmol/L (101-111) L 10/04/20 04:49 Carbon Dioxide 26 mmol/L (21-32) 10/04/20 04:49 Anion Gap 14.0 (6-13) H 10/04/20 04:49 BUN 24 mg/dL (6-20) H 10/04/20 04:49 Creatinine 1.2 mg/dL (0.4-1.0) H 10/04/20 04:49 Estimated GFR (MDRD) 46 (>89) L 10/04/20 04:49 Glucose 74 mg/dL (70-100) 10/04/20 04:49 Calcium 7.6 mg/dL (8.5-10.3) L 10/04/20 04:49 Phosphorus 2.7 mg/dL (2.5-4.6) 10/03/20 12:39 Magnesium 2.5 mg/dL (1.7-2.8) 10/03/20 12:39 Total Bilirubin 1.4 mg/dL (0.2-1.0) H 10/03/20 12:39 AST 19 IU/L (10-42) 10/03/20 12:39 ALT < 10 IU/L (10-60) L 10/03/20 12:39 Alkaline Phosphatase 51 IU/L (42-121) 10/03/20 12:39 Total Protein 7.1 g/dL (6.7-8.2) 10/03/20 12:39 Albumin 3.5 g/dL (3.2-5.5) 10/03/20 12:39 Globulin 3.6 g/dL (2.1-4.2) 10/03/20 12:39 Albumin/Globulin Ratio 1.0 (1.0-2.2) 10/03/20 12:39 Lipase 48 U/L (22-51) 10/03/20 12:39 Carcinoembryonic Ag 1.5 ng/mL 10/04/20 04:49 CA 125 Antigen 938.7 U/mL (0.0-35.0) H 10/04/20 04:49 Urine Color YELLOW 10/03/20 16:37 Urine Clarity HAZY (CLEAR) 10/03/20 16:37 Urine pH 6.0 PH (5.0-7.5) 10/03/20 16:37 Ur Specific [place] 1.015 (1.002-1.030) 10/03/20 16:37 Urine Protein TRACE mg/dL (NEGATIVE) 10/03/20 16:37 Urine Glucose (UA) NEGATIVE mg/dL (NEGATIVE) 10/03/20 16:37 Urine Ketones 15 mg/dL (NEGATIVE) H 10/03/20 16:37 Urine Occult Blood TRACE-INTA (NEGATIVE) 10/03/20 16:37 Urine Nitrite POSITIVE (NEGATIVE) H 10/03/20 16:37 Urine Bilirubin NEGATIVE (NEGATIVE) 10/03/20 16:37 Urine Urobilinogen 2 E.U./dL (NORMAL) H 10/03/20 16:37 Ur Leukocyte Esterase LARGE (NEGATIVE) H 10/03/20 16:37 Urine RBC 0-5 /HPF (0-5) 10/03/20 16:37 Urine WBC >25 /HPF (0-5) H 10/03/20 16:37 Ur Squamous Epith Cells NONE SEEN (<= Few) 10/03/20 16:37 Urine Bacteria Many /HPF (None Seen) H 10/03/20 16:37 Ur Microscopic Review INDICATED 10/03/20 16:37 Urine Culture Comments INDICATED 10/03/20 16:37 Nasal Adenovirus (PCR) NOT DETECTED 10/03/20 14:50 Nasal B. parapertussis DNA (PCR) NOT DETECTED 10/03/20 14:50 Nasal Coronavir 229E PCR NOT DETECTED 10/03/20 14:50 Nasal Coronavir HKU1 PCR NOT DETECTED 10/03/20 14:50 Nasal Coronavir NL63 PCR NOT DETECTED 10/03/20 14:50 Nasal Coronavir OC43 PCR NOT DETECTED 10/03/20 14:50 Nasal Enterovir/Rhinovir PCR NOT DETECTED 10/03/20 14:50 Nasal Influenza B PCR NOT DETECTED 10/03/20 14:50 Nasal Influenza A PCR NOT DETECTED 10/03/20 14:50 Nasal Parainfluen 1 PCR NOT DETECTED 10/03/20 14:50 Nasal Parainfluen 2 PCR NOT DETECTED 10/03/20 14:50 Nasal Parainfluen 3 PCR NOT DETECTED 10/03/20 14:50 Nasal Parainfluen 4 PCR NOT DETECTED 10/03/20 14:50 Nasal RSV (PCR) NOT DETECTED 10/03/20 14:50 Nasal B.pertussis DNA PCR NOT DETECTED 10/03/20 14:50 Nasal C.pneumoniae (PCR) NOT DETECTED 10/03/20 14:50 Jm Human Metapneumo PCR NOT DETECTED 10/03/20 14:50 Nasal M.pneumoniae (PCR) NOT DETECTED 10/03/20 14:50 Nasal SARS-CoV-2 (PCR) NOT DETECTED 10/03/20 14:50 Urine Opiates Screen NEGATIVE (NEGATIVE) 10/03/20 16:37 Ur Oxycodone Screen NEGATIVE (NEGATIVE) 10/03/20 16:37 Urine Methadone Screen NEGATIVE (NEGATIVE) 10/03/20 16:37 Ur Propoxyphene Screen NEGATIVE (NEGATIVE) 10/03/20 16:37 Ur Barbiturates Screen NEGATIVE (NEGATIVE) 10/03/20 16:37 Ur Tricyclics Screen NEGATIVE (NEGATIVE) 10/03/20 16:37 Ur Phencyclidine Scrn NEGATIVE (NEGATIVE) 10/03/20 16:37 Ur Amphetamine Screen NEGATIVE (NEGATIVE) 10/03/20 16:37 U Methamphetamines Scrn NEGATIVE (NEGATIVE) 10/03/20 16:37 U Benzodiazepines Scrn NEGATIVE (NEGATIVE) 10/03/20 16:37 Urine Cocaine Screen NEGATIVE (NEGATIVE) 10/03/20 16:37 U Cannabinoids Screen NEGATIVE (NEGATIVE) 10/03/20 16:37 ABX Reporting Has patient been on IV antibiotics over the past 48 hours?: No
[2020-10-04] MEDS ORDERED: NS W/20 MEQ KCL 1,000 ML IV SCH (09:00)
[2020-10-04] MEDS: D5NS W/20 MEQ KCL 1,000 ML IV SCH ×2 (09:02→21:32)
[2020-10-04] MEDS: ONDANSETRON 4 MG/2 ML VIAL IVP PRN (09:02)
--- NOTE | 2020-10-04 11:25 | CONSULTATION NOTE ---
Referring Provider Name of Referring Provider:: MD Dwain Consult Date: 10/04/20 Chief Complaint - Chief Complaint Chief Complaint: Nausea and vomiting History of Present Illness - Admitted From Admitted From:: ED - History Obtained From Records Reviewed: Providers notes History obtained from: Patient and providers Exam Limitations: None - History of Present Illness HPI Comment/Other: 60 year old lady who presented to the ED with complaint of nausea and vomiting. She was seen in our ED in mid August for similar symptoms and diagnosed with renal insufficiency and an old cerebral lacunar infarct. She had a renal ultrasound at that visit. She reports that she felt a little better after that visit but her nausea never fully resolved. She reports she has been vomiting at home frequently and sometimes with large volumes. CT scan was done as part of her evaluation in the ED and revealed a pattern of malignant carcinomatosis most prominent in the left upper quadrant and extending into the pelvis. Dr. Antony recommended either CT guided omental biposy or diagnostic laparoscopy. I have been consulted for diagnostic laparoscopy and consideration of port placement for facilitation of chemotherapy once diagnosis has been established. Babita reports her abdomen is hurting now and she remains nauseated. She continues to pass flatus. 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 As such she does not have any familial history for parents or siblings. Of 4 children they are all healthy without any major medical illnesses. Living arrangement: Assisted living Living Situation: With caregiver(s) Social History Notes: She smokes anywhere from 5 to 10 cigarettes a day. Has smoked for close to 50 years. She is used recreational substances in the past including cocaine. None for over a decade. She has no history of alcohol abuse. She used to live with her daughter, and daughter could no longer take care of her and she was placed in [facility] halfway facility in April 2020. - Substance History Use: Uses substance without health or social issues: Tobacco Abuse: Recurrent use of substance despite neg consequences: NONE Tobacco Details: Cigarettes - POLST Patient has POLST: No POLST Status: Full Code Meds/Allgy - Home Medications Home Medications: Ambulatory Orders Medication Instructions Recorded Confirmed Atorvastatin Calcium [Lipitor] 80 mg PO DAILY 09/04/20 10/03/20 Clopidogrel [Plavix] 75 mg PO DAILY 09/04/20 10/03/20 Lisinopril/Hydrochlorothiazide 20 - 25 mg PO DAILY 09/04/20 10/03/20 [Zestoretic 20-25 mg Tablet] Meloxicam [Mobic] 7.5 mg PO DAILY 09/04/20 10/03/20 Pioglitazone HCl [Actos] 30 mg PO DAILY 09/04/20 10/03/20 amLODIPine [Norvasc] 5 mg PO DAILY 09/04/20 10/03/20 hydrOXYzine HCL [Hydroxyzine HCl] 50 - 100 mg PO HS PRN 09/04/20 10/03/20 Ferrous Sulfate Liquid [Feosol 300 mg PO DAILYWM #30 udc 09/07/20 10/03/20 Liquid] Folic Acid 1 mg PO DAILY #30 tablet 09/07/20 10/03/20 Ondansetron Odt [Zofran Odt] 4 mg TL Q6H PRN #10 tablet 09/07/20 10/03/20 Metoclopramide [Reglan] 10 mg PO Q6H PRN #20 tablet 09/09/20 10/03/20 Mirtazapine [Remeron] 7.5 mg PO DAILY PM 10/03/20 10/03/20 Omeprazole [PriLOSEC] 20 mg PO BID 10/03/20 10/03/20 - Allergies Allergies/Adverse Reactions: Allergies Allergy/AdvReac Type Severity Reaction Status Date / Time acetaminophen [From Percocet] AdvReac Emesis Verified 10/03/20 10:34 metformin AdvReac Emesis Verified 10/03/20 10:34 oxycodone [From Percocet] AdvReac Emesis Verified 10/03/20 10:34 Review of Systems - Constitutional Constitutional: reports: Fatigue, Malaise, Weakness, Poor appetite, Weight loss. denies: Diaphoresis, Night sweats - Ears, Nose & Throat Ears, Nose & Throat: denies: Tinnitus, Vertigo - Cardiovascular Cariovascular: reports: Lightheadedness. denies: Irregular heart rate, Palpitations, Chest pain, Edema - Respiratory Respiratory: denies: Cough, Wheezing - Gastrointestinal Gastrointestinal: reports: Abdominal pain, Nausea, Vomiting. denies: Abdominal distention, Change in bowel habits - Genitourinary Genitourinary: denies: Dysuria, Frequency - Musculoskeletal Musculoskeletal: reports: Stiffness, Joint pain - Integumentary Integumentary: denies: Rash, Pruritis - Neurological Neurological: denies: Headache - Hematologic/Lymphatic Hematologic/Lymphatic: denies: Anemia, Blood clots, Recurrent infections - All Other Systems All Other Systems: reports: Reviewed and negative Exam - Vital Signs Reviewed Vital Signs: Yes Vital Signs: Vital Signs x48h Temp Pulse Resp BP Pulse Ox 10/04/20 08:00 37.1 C 83 14 102/71 94 - Physical Exam General Appearance: positive: Mild distress, Lethargic Eyes Bilateral: positive: Normal inspection, PERRL, EOMI ENT: positive: ENT inspection nml, Pharynx nml, No signs of dehydration Neck: positive: Nml inspection, Trachea midline Respiratory: positive: Chest non-tender, No respiratory distress Cardiovascular: positive: Regular rate & rhythm Peripheral Pulses: positive: 0 Abdomen: positive: Non-tender, Nml bowel sounds, No distention. negative: Guarding, Rebound Back: negative: CVA tenderness (R), CVA tenderness (L) Skin: positive: Color nml Extremities: positive: Non-tender, No pedal edema Neurologic/Psychiatric: positive: Oriented x3 Conclusion and Plan - Lab Results Laboratory Results 10/04/20 04:49: CA 125 Antigen 938.7 H 10/04/20 04:49: Carcinoembryonic Ag 1.5 10/04/20 04:49: Sodium 130 L, Potassium 3.7, Chloride 90 L, Carbon Dioxide 26, Anion Gap 14.0 H, BUN 24 H, Creatinine 1.2 H, Estimated GFR (MDRD) 46 L, Glucose 74, Calcium 7.6 L 10/04/20 04:49: WBC 7.5, RBC 3.45 L, Hgb 9.1 L, Hct 29.5 L, MCV 85.5, MCH 26.4 L, MCHC 30.8 L, RDW 15.1 H, Plt Count 298, MPV 9.0, Neut # (Auto) 5.3, Lymph # (Auto) 1.3 L, [place] # (Auto) 0.7, Eos # (Auto) 0.1, Baso # (Auto) 0.1, Absolute Nucleated RBC 0.00, Nucleated RBC % 0.0 10/03/20 16:37: Urine Color YELLOW, Urine Clarity HAZY, Urine pH 6.0, Ur Specific [place] 1.015, Urine Protein TRACE, Urine Glucose (UA) NEGATIVE, Urine Ketones 15 H, Urine Occult Blood TRACE-INTA, Urine Nitrite POSITIVE H, Urine Bilirubin NEGATIVE, Urine Urobilinogen 2 H, Ur Leukocyte Esterase LARGE H, Urine RBC 0-5, Urine WBC >25 H, Ur Squamous Epith Cells NONE SEEN, Urine Bacteria Many H, Ur Microscopic Review INDICATED, Urine Culture Comments INDICATED, Urine Opiates Screen NEGATIVE, Ur Oxycodone Screen NEGATIVE, Urine Methadone Screen NEGATIVE, Ur Propoxyphene Screen NEGATIVE, Ur Barbiturates Screen NEGATIVE, Ur Tricyclics Screen NEGATIVE, Ur Phencyclidine Scrn NEGATIVE, Ur Amphetamine Screen NEGATIVE, U Methamphetamines Scrn NEGATIVE, U Benzodiazepines Scrn NEGATIVE, Urine Cocaine Screen NEGATIVE, U Cannabinoids Screen NEGATIVE 10/03/20 14:50: Nasal Adenovirus (PCR) NOT DETECTED, Nasal B. parapertussis DNA (PCR) NOT DETECTED, Nasal Coronavir 229E PCR NOT DETECTED, Nasal Coronavir HKU1 PCR NOT DETECTED, Nasal Coronavir NL63 PCR NOT DETECTED, Nasal Coronavir OC43 PCR NOT DETECTED, Nasal Enterovir/Rhinovir PCR NOT DETECTED, Nasal Influenza B PCR NOT DETECTED, Nasal Influenza A PCR NOT DETECTED, Nasal Parainfluen 1 PCR NOT DETECTED, Nasal Parainfluen 2 PCR NOT DETECTED, Nasal Parainfluen 3 PCR NOT DETECTED, Nasal Parainfluen 4 PCR NOT DETECTED, Nasal RSV (PCR) NOT DETECTED, Nasal B.pertussis DNA PCR NOT DETECTED, Nasal C.pneumoniae (PCR) NOT DETECTED, Jm Human Metapneumo PCR NOT DETECTED, Nasal M.pneumoniae (PCR) NOT DETECTED, Nasal SARS-CoV-2 (PCR) NOT DETECTED 10/03/20 12:39: Sodium 134 L, Potassium 2.3 L*, Chloride 78 L*, Carbon Dioxide 36 H, Anion Gap 20.0 H, BUN 39 H, Creatinine 1.7 H, Estimated GFR (MDRD) 31 L, Glucose 112 H, Calcium 9.1, Phosphorus 2.7, Magnesium 2.5, Total Bilirubin 1.4 H, AST 19, ALT < 10 L, Alkaline Phosphatase 51, Total Protein 7.1, Albumin 3.5, Globulin 3.6, Albumin/Globulin Ratio 1.0, Lipase 48 10/03/20 10:43: WBC 9.5, RBC 4.22, Hgb 11.5 L, Hct 35.9 L, MCV 85.1, MCH 27.3, MCHC 32.0, RDW 15.2 H, Plt Count 400, MPV 9.7, Neut # (Auto) 7.0 H, Lymph # (Auto) 1.4 L, [place] # (Auto) 0.9, Eos # (Auto) 0.0, Baso # (Auto) 0.1, Absolute Nucleated RBC 0.00, Nucleated RBC % 0.0 - Diagnostic Imaging Results Diagnostic Imaging Results: positive: Final report reviewed Diagnostic Imaging Results Comments: Final Report PT NAME: BABITA PLAZA MR#: [id number] REG ER/ED AGE: 60 CI DT/TM: 10/03/2008/13/1230 PCP: : 1960 ATT: SEX: F ORD: Aristeo gupta MD EXAM: [id number] CT/ABPEWO ([id number]) PROCEDURE: Abdomen/Pelvis WO INDICATIONS: vomiting x 3 weeks TECHNIQUE: Noncontrast 5 mm thick sections acquired from the diaphragms to the symphysis. 5 mm coronal and sagittal reformats were then performed. For radiation dose reduction, the following was used: automated exposure control, adjustment of mA and/or kV according to patient size. COMPARISON: None. FINDINGS: Image quality: Quality of visualization is limited by the absence of intravenous contrast. ABDOMEN: Lung bases: Lung bases are clear except for what appears to be a small degree of atelectasis at the lung bases, right slightly greater than left. Heart size is normal. Solid organs: Liver and spleen are normal in size. Gallbladder is normal Pancreas is normal in contours. No adrenal nodules. Kidneys are asymmetric in size abnormally small on the right, as was also seen on recent ultrasound scanning 09/04/2020, without hydronephrosis or nephrolithiasis. Peritoneum and bowel: Unenhanced bowel loops demonstrate normal wall thickness and caliber. No free air. Note is made of a relatively small amount of free fluid, water in density, in the perihepatic space. Within the peritoneal space is seen at the left upper quadrant and through the anterior peritoneal space involving the omentum is a pattern of peritoneal carcinomatosis, with peritoneal and omental thickening, solid in appearance. This is most pronounced at the left upper quadrant anterior to the spleen. Nodes and vessels: No retroperitoneal or mesenteric adenopathy by size criteria. Aorta and inferior vena cava are normal in caliber. Miscellaneous: No ventral hernias. PELVIS: Genitourinary: Bladder wall thickness is normal. No adnexal mass lesion is identified. Miscellaneous: No inguinal hernias or adenopathy. The pattern of omental carcinomatosis and a small amount of free fluid deep within the peritoneal space extends into the pelvis. Asymmetrically small right kidney, compensatory hypertrophy left kidney, Chronic in appearance. Bones: No suspicious bony lesions. No vertebral body compression fractures. IMPRESSION: Quality of visualization is somewhat reduced by absence of intravenous contrast. The current study shows definite likely malignant thickening of the omentum best seen at the left upper quadrant, ventral to the spleen. This also extends inferiorly along the anterior peritoneal space into the pelvis. There is a small amount of ascites, insufficient for safe ultrasound-mikey ded aspiration. The exact etiology of this presumed malignant process is uncertain. CT-guided omental biopsy, versus laparoscopic biopsy appears warranted. Chest plain film assessment also is recommended to assess for lung mass. Asymmetrically small right kidney, possibly congenital. Note: Findings called and discussed personally with the emergency room physician caring for the patient at time of this dictation. Reviewed by: Maldonado Benson MD on 10/03/2020 2:32 PM PST Approved by: Maldonado Benson MD on 10/03/2020 2:32 PM PST Station ID: [id number] Administrative Office Manager: KALLIE Reading Radiologist: Maldonado Benson MD Releasing Radiologist: Maldonado Benson MD Released Date Time: 10/03/20 1432 - Diagnosis Diagnosis: Intractable nausea and vomiting in the setting of a pattern of peritoneal carcinomatous seen on CT. - Plan Plan: I agree with recommendation for diagnostic laparoscopy and that procedure has been scheduled for this afternoon. We discussed the possibility of port placement as well. I am happy to do that but the patient is feeling a little overwhelmed and is not sure she wants to complete that procedure yet. We discussed the risks and benefits of diagnostic laparoscopy and the patient has expressed a desire to complete that procedure today. We will hold off on plans for a port at this time.
[2020-10-04] MEDS: INSULIN REGULAR HUMAN 300 UNIT/3 ML VIAL SUBQ SCH ×2 (13:36→18:22)
--- NOTE | 2020-10-04 14:37 | ANESTHESIA ---
Pre-Anesthesia VS, & Labs - Diagnosis Diagnosis Intractable nausea and vomiting in the setting of a pattern of peritoneal carcinomatous seen on CT. - Procedure diagnonstic laparoscopy with biopsy, portacath placement Vital Signs: Temp Pulse Resp BP Pulse Ox 37.1 C 83 14 102/71 94 10/04/20 08:00 10/04/20 08:00 10/04/20 08:00 10/04/20 08:00 10/04/20 08:00 Height: 5 ft 2 in Weight (kg): 66 kg Body Mass Index: 26.6 BMI Classification: Overweight - NPO >8 hours - Is Patient ?: No - Lab Results Current Lab Results: Laboratory Tests 10/04/20 04:49: CA 125 Antigen 938.7 H 10/04/20 04:49: Carcinoembryonic Ag 1.5 10/04/20 04:49: Sodium 130 L, Potassium 3.7, Chloride 90 L, Carbon Dioxide 26, Anion Gap 14.0 H, BUN 24 H, Creatinine 1.2 H, Estimated GFR (MDRD) 46 L, Glucose 74, Calcium 7.6 L 10/04/20 04:49: WBC 7.5, RBC 3.45 L, Hgb 9.1 L, Hct 29.5 L, MCV 85.5, MCH 26.4 L , MCHC 30.8 L, RDW 15.1 H, Plt Count 298, MPV 9.0, Neut # (Auto) 5.3, Lymph # (Auto) 1.3 L, [place] # (Auto) 0.7, Eos # (Auto) 0.1, Baso # (Auto) 0.1, Absolute Nucleated RBC 0.00, Nucleated RBC % 0.0 10/03/20 16:37: Urine Opiates Screen NEGATIVE, Ur Oxycodone Screen NEGATIVE, Urine Methadone Screen NEGATIVE, Ur Propoxyphene Screen NEGATIVE, Ur Barbiturates Screen NEGATIVE, Ur Tricyclics Screen NEGATIVE, Ur Phencyclidine Scrn NEGATIVE, Ur Amphetamine Screen NEGATIVE, U Methamphetamines Scrn NEGATIVE, U Benzodiazepines Scrn NEGATIVE, Urine Cocaine Screen NEGATIVE, U Cannabinoids Screen NEGATIVE 10/03/20 12:39: Sodium 134 L, Potassium 2.3 L*, Chloride 78 L*, Carbon Dioxide 36 H, Anion Gap 20.0 H, BUN 39 H, Creatinine 1.7 H, Estimated GFR (MDRD) 31 L, Glucose 112 H, Calcium 9.1, Phosphorus 2.7, Magnesium 2.5, Total Bilirubin 1.4 H , AST 19, ALT < 10 L, Alkaline Phosphatase 51, Total Protein 7.1, Albumin 3.5, Globulin 3.6, Albumin/Globulin Ratio 1.0, Lipase 48 10/03/20 10:43: WBC 9.5, RBC 4.22, Hgb 11.5 L, Hct 35.9 L, MCV 85.1, MCH 27.3, MCHC 32.0, RDW 15.2 H, Plt Count 400, MPV 9.7, Neut # (Auto) 7.0 H, Lymph # (Auto) 1.4 L, [place] # (Auto) 0.9, Eos # (Auto) 0.0, Baso # (Auto) 0.1, Absolute Nucleated RBC 0.00, Nucleated RBC % 0.0 Lab results reviewed: Yes Fish Bones: 10/04/20 04:49 10/04/20 04:49 Home Medications and Allergies Home Medications: Ambulatory Orders Mirtazapine [Remeron] 7.5 mg PO DAILY PM 10/03/20 Omeprazole [PriLOSEC] 20 mg PO BID 10/03/20 Active Medications Hydromorphone HCl (Hydromorphone 0.5 Mg/0.5 Ml Syringe) 0.5 mg IVP Q2H PRN PRN Reason: Pain 8 to 10 Potassium Chloride/Dextrose/Sod Cl () 1,000 mls @ 100 mls/hr IV .Q10H LEXIE Last Admin: 10/04/20 09:02 Dose: 100 mls/hr Documented by: Insulin Human Regular (Insulin Regular Human 300 Unit/3 Ml Vial) 1 - 5 unit SUBQ Q6HR LEXIE; Protocol Last Admin: 10/04/20 13:36 Dose: Not Given Documented by: Ondansetron HCl (Ondansetron Odt 4 Mg Tablet) 4 mg TL Q6HR PRN PRN Reason: Nausea / Vomiting Ondansetron HCl (Ondansetron 4 Mg/2 Ml Vial) 4 mg IVP Q6HR PRN PRN Reason: Nausea / Vomiting Last Admin: 10/04/20 09:02 Dose: 4 mg Documented by: Prochlorperazine Edisylate (Prochlorperazine 10 Mg/2 Ml Vial) 10 mg IVP Q6HR PRN PRN Reason: Nausea / Vomiting Sodium Chloride (Sodium Chloride Flush 0.9% 10 Ml Syringe) 10 ml IVP PRN PRN PRN Reason: NEEDED PER PROVIDER ORDERS Sodium Chloride (Sodium Chloride Flush 0.9% 10 Ml Syringe) 10 ml IVP 010 0,0900,1700 LEXIE Last Admin: 10/04/20 08:41 Dose: 10 ml Documented by: Zolpidem Tartrate (Zolpidem 5 Mg Tablet) 5 mg PO QPM PRN PRN Reason: Insomnia Atorvastatin Calcium [Lipitor] 80 mg PO DAILY 09/04/20 Clopidogrel [Plavix] 75 mg PO DAILY 09/04/20 Lisinopril/Hydrochlorothiazide [Zestoretic 20-25 mg Tablet] 20 - 25 mg PO DAILY 09/04/20 Meloxicam [Mobic] 7.5 mg PO DAILY 09/04/20 Pioglitazone HCl [Actos] 30 mg PO DAILY 09/04/20 amLODIPine [Norvasc] 5 mg PO DAILY 09/04/20 hydrOXYzine HCL [Hydroxyzine HCl] 50 - 100 mg PO HS PRN 09/04/20 Mirtazapine [Remeron] 7.5 mg PO DAILY PM 10/03/20 Omeprazole [PriLOSEC] 20 mg PO BID 10/03/20 Allergies/Adverse Reactions: Allergies Allergy/AdvReac Type Severity Reaction Status Date / Time acetaminophen [From Percocet] AdvReac Emesis Verified 10/03/20 10:34 metformin AdvReac Emesis Verified 10/03/20 10:34 oxycodone [From Percocet] AdvReac Emesis Verified 10/03/20 10:34 Anes History & Medical History - Anesthetic History Anesthesia Complications: reports: No previous complications Family history of Anesthesia Complications: Denies Family history of Malignant Hyperthermia: Denies - Medical History Cardiovascular: reports: Hypertension Pulmonary: reports: None Gastrointestinal: reports: None Urinary: reports: None Neuro: reports: CVA (x2, no focal deficits) Musculoskeletal: reports: None Endocrine/Autoimmune: reports: Type 2 diabetes Blood Disorders: reports: None Skin: reports: None Smoking Status: Former smoker - Surgical History Gynecologic: section (x4) Dermatologic: Skin cancer surgery (upper back for melanoma) Exam General: Alert, Oriented x3, Cooperative, No acute distress Dental: WNL Mouth Openin Fingerbreadth Neck Mobility: Normal Mallampati classification: II Respiratory: Normal breath sounds, No respiratory distress Cardiovascular: Regular rate, Normal S1, Normal S2, No murmurs Plan Anesthesia Type: General Consent for Procedure(s) Verified and Reviewed: Yes Code Status: Attempt Resuscitation ASA classification: 2-Mild systemic disease Is this case an emergency?: No
[2020-10-04] MEDS ORDERED: LIDOCAINE-MPF 2% 5 ML VIAL ONE (14:41)
[2020-10-04] MEDS ORDERED: ROCURONIUM 50 MG/5 ML VIAL ONE (14:41)
[2020-10-04] MEDS ORDERED: ONDANSETRON 4 MG/2 ML VIAL ONE (14:41)
[2020-10-04] MEDS ORDERED: DEXAMETHASONE 4 MG/ML VIAL ONE (14:41)
[2020-10-04] MEDS ORDERED: KETOROLAC 30 MG/ML VIAL ONE (14:41)
[2020-10-04] MEDS ORDERED: fentaNYL 100 MCG/2 ML VIAL ONE ×2 (14:41→16:16)
[2020-10-04] MEDS ORDERED: PROPOFOL 200 MG/20 ML VIAL IVP ONE (14:41)
[2020-10-04] MEDS ORDERED: LIDOCAINE 1% 50 ML MDV ONE (14:44)
[2020-10-04] MEDS ORDERED: BUPIVACAINE 0.5%-EPI 1:200000 PF 30 ML VIAL ONE (14:44)
[2020-10-04] MEDS ORDERED: ceFAZolin 1 GM VIAL ONE (15:54)
[2020-10-04] MEDS ORDERED: SUGAMMADEX 200 MG/2 ML VIAL IVP ONE (16:07)
--- NOTE | 2020-10-04 16:34 | OPERATIVE REPORT ---
Operative Report - General Admit Date: 10/03/20 Procedure Date: 10/04/20 Planned Procedure: Diagnostic laparoscopy with likely biopsy and left subclavian PowerPort placement Pre-Op Diagnosis: Intractable nausea and vomiting with abnormal CT scan Procedure Performed: Diagnostic laparoscopy with omental biopsy and aspiration of intraperitoneal fluid Post Op Diagnosis: Omental mass with carcinomatosis - Procedure Note Primary Surgeon: Clotilde Anesthesia Provider: Jeronimo Anesthesia Technique: General ET tube, Local Pathology: 1. Portion of omentum to Path in formalin 2. Peritoneal fluid aspirate to pathology fresh, in formalin, and in flow media Estimated Blood Loss (mL): 15 Findings: 1. Malignant appearing omental mass involving 100% of the omentum. 2. Thick slimy, bloody intraperitoneal fluid. 3. Peritoneal studding appreciated involving all portions of the anterior abdominal wall. 4. Exploration limited by friability of the mass and bleeding. 5. Port in good position in the superior vena cava Complications: None apparent - Other Other Information/Narrative: After obtaining informed consent, the patient is brought to the operating room and placed in the supine position on the operating table. Following successful induction of general endotracheal anesthesia, appropriate padding of all bony prominences, and placement of appropriate monitors, the abdomen is prepped and draped in the standard surgical fashion. A timeout was held per scope protocol. All elements of the surgical safety checklist were followed before, during, and after the procedure. We began by infiltrating a mixture of local anesthetics just superior to the umbilicus. An incision was created here and carried down through the skin and subcutaneous tissue to enter the abdomen directly. We immediately encountered a large volume of bloody, thick and slimy peritoneal fluid. Approximately 25 mL of this fluid was aspirated to be sent for Cytopathology. A 12 [place] Castellanos balloon trocar was placed in the abdominal cavity and it was insufflated to 15 mmHg pressure. A second 5 mm trocar was placed under direct vision in the midline superiorly and a third trocar, also 5 mm was placed in the right upper quadrant. A visual survey was undertaken through the abdomen beginning in the left upper quadrant. We noted a thickened grayish appearing omentum with a sm ooth surface more reminiscent of brain tissue and actual omental tissue the entire omentum was affected. Photographs were taken of the left upper quadrant left lower quadrant right upper quadrant and right lower quadrant. Additionally we noted peritoneal studding of the anterior abdominal wall and this was documented as well.I first attempted to lift the omentum from the pelvis to try to visualize some of the pelvic organs and bowel but the omentum is very heavy and very friable and it began to tear into bleed I felt it was the better part of valor to leave this alone and simply get a biopsy of the mass.Using the LigaSure, a portion of the omentum was lifted and then carefully excised. It was placed in an Endo Catch device and removed via the umbilical port.The abdomen was irrigated and aspirated free of all fluid and particulate matter. The supraumbilical wound was then closed with interrupted Vicryl sutures and Monocryl stitches were placed in the skin. We continued the procedure with the left subclavian Port device. Following infiltration with local anesthetic to create a field block, the left subclavian vein was accessed in the deltopectoral groove. The J-wire was gently placed into the vein. Fluoroscopy was used to confirm the position of the wire and in the subclavian vein. We anesthetized the existing healed scar in the area around it for placement of the port itself. An incision was created here and carried down through the skin and subcutaneous tissue. A pocket was created with blunt dissection. The port tubing was attached to the tunneling device and passed from the access site of the vein into the pocket. It was trimmed to an appropriate length and the port attached. The port was sewn into place in the pocket. The dilator and introducer were then passed over the J-wire that was in the subclavian vein. The J-wire and dilator were removed leaving only the introducer. The tubing was then passed through the introducer and the introducer cracked and removed per software configuration manager's directions. The port was then checked for function and flushed and yulisa easily. Additional local anesthetic was applied to the chest wall. The port pocket was closed with interrupted Vicryl sutures and Monocryl stitches were placed in both skin incision sites. All incisions, both abdominal and chest were dressed with Dermabond. All sponge, needle, and instrument counts were correct at the conclusion of the case. Chest x-ray in the postanesthesia care unit revealed the port in good position in the superior vena cava without evidence of pneumothorax.
[2020-10-04] MEDS ORDERED: LIDOCAINE 1% 50 ML MDV SUBQ ONE (16:40)
[2020-10-04] MEDS ORDERED: BUPIVACAINE 0.5%-EPI 1:200000 PF 30 ML VIAL SUBQ ONE (16:42)
[2020-10-04] MEDS ORDERED: NALOXONE 0.4 MG/ML VIAL IVP PRN (16:47)
[2020-10-04] MEDS ORDERED: ATROPINE ABBOJECT 1 MG/10 ML SYRINGE IVP PRN (16:47)
[2020-10-04] MEDS ORDERED: ONDANSETRON 4 MG/2 ML VIAL IVP PRN (16:47)
[2020-10-04] MEDS ORDERED: fentaNYL 100 MCG/2 ML VIAL IVP PRN (16:47)
[2020-10-04] MEDS ORDERED: MORPHINE 2 MG/ML CARPUJECT IVP PRN (16:47)
[2020-10-04] MEDS ORDERED: ePHEDrine 50 MG/ML VIAL IVP PRN (16:47)
[2020-10-04] MEDS ORDERED: HYDROmorphone 0.5 MG/0.5 ML SYRINGE IVP PRN (16:47)
[2020-10-04] MEDS ORDERED: METOCLOPRAMIDE 10 MG/2 ML VIAL IVP PRN (16:47)
--- NOTE | 2020-10-04 16:48 | XRAY Report ---
PROCEDURE: OR C-Arm Procedure INDICATIONS: port placement TECHNIQUE: C-arm fluoroscopy utilized. COMPARISON: None. FINDINGS: An endotracheal tube extends significantly below the medial clavicular head margin into the upper rig ht mainstem bronchus crossing from left to right is a catheter like device which extends inferiorly t o below the imaging margin, at least into the distal SVC. IMPRESSION: Endotracheal tube appears within the right mainstem bronchus. What appears to be a central line exten ds from outside of the imaging margin on the left across the midline and then inferiorly below the im aging margin at least into the distal SVC. Reviewed by: Maldonado Benson MD on 10/04/2020 4:46 PM PST Approved by: Maldonado Benson MD on 10/04/2020 4:46 PM PST Station ID: [id number]
[2020-10-04] MEDS ORDERED: LACTATED RINGERS 1,000 ML IV ONE (16:55)
[2020-10-04] MEDS ORDERED: LACTATED RINGERS 1,000 ML IV SCH (17:00)
--- NOTE | 2020-10-04 17:00 | ANESTHESIA POST OP EVALUATION ---
Anesthesia Post Eval - Post Anesthesia Eval Vitals: Last Vital Signs Temp 36.8 C 10/04/20 16:50 Pulse 91 10/04/20 16:50 Resp 15 10/04/20 16:50 BP 127/84 H 10/04/20 16:50 Pulse Ox 96 10/04/20 16:50 CV Function Including HR & BP: positive: Stable Pain Control: positive: Satisfactory Nausea & Vomiting: positive: Negative Mental Status: positive: Baseline Respiratory Status: Airway Patent Hydration Status: Satisfactory Anesthesia Complications: positive: None
--- NOTE | 2020-10-04 17:13 | XRAY Report ---
PROCEDURE: Chest for Line Placement INDICATIONS: Left Port TECHNIQUE: One view of the chest was acquired. COMPARISON: None FINDINGS: Surgical changes and devices: Left chest wall Port-A-Cath tip is in SVC.. Lungs and pleura: No pleural effusions or pneumothorax. Lungs are clear. Mediastinum: Are tortuous thoracic aorta is seen. Heart size is enlarged. Bones and chest wall: No suspicious bony lesions. Overlying soft tissues appear unremarkable. IMPRESSION: Left chest wall Port-A-Cath tip is in SVC. No acute cardiopulmonary pathology. Reviewed by: Carlos Sam MD on 10/04/2020 5:12 PM PST Approved by: Carlos Sam MD on 10/04/2020 5:12 PM PST Station ID: [id number]
[2020-10-05] MEDS: SODIUM CHLORIDE FLUSH 0.9% 10 ML SYRINGE IVP SCH ×4 (00:23→23:33)
[2020-10-05] MEDS: INSULIN REGULAR HUMAN 300 UNIT/3 ML VIAL SUBQ SCH ×2 (00:23→06:56)
[2020-10-05] MEDS ORDERED: BENZOCAINE/MENTHOL LOZENGE MM PRN (05:49)
[2020-10-05 08:08] LABS: BASOPHILS % (AUTO) 0.1 %; EOSINOPHILS % (AUTO) 0.1 %; HGB - HEMOGLOBIN 8.7 g/dL (12.0-16.0); LYMPHOCYTES # (AUTO) 0.8 10^3/uL (1.5-3.5); LYMPHOCYTES % (AUTO) 9.5 %; MEAN CORPUSCULAR HEMOGLOBIN 26.4 pg (27.0-31.0); MEAN CORPUSCULAR VOLUME 88.1 fL (81.0-99.0); MEAN PLATELET VOLUME 9.2 fL (7.9-10.8); MONOCYTES # (AUTO) 0.6 10^3/uL (0.0-1.0); MONOCYTES % (AUTO) 7.4 %; NEUTROPHILS # (AUTO) 6.5 10^3/uL (1.5-6.6); NEUTROPHILS % (AUTO) 81.5 %; PLT - PLATELET COUNT 262 10^3/uL (130-450); RED BLOOD COUNT 3.29 10^6/uL (4.20-5.40)
[2020-10-05 08:15] LABS: CALCIUM 7.4 mg/dL (8.5-10.3); CREATININE 1.1 mg/dL (0.4-1.0)
[2020-10-05] MEDS: INSULIN ASPART 300 UNIT/3 ML PEN SUBQ SCH ×4 (08:42→21:04)
[2020-10-05] MEDS: D5NS W/20 MEQ KCL 1,000 ML IV SCH ×2 (08:43→19:11)
--- NOTE | 2020-10-05 11:28 | PROVIDER PROGRESS NOTE ---
Subjective - General Admit Date: 10/03/20 Procedure Date: 10/04/20 Post Op Days: 1 Procedure Performed: Diagnostic laparoscopy with biospy - Review of Systems Wound/Incisions: positive: Healing well Gastrointestinal: positive: Other. negative: Nausea, Vomiting All Other Systems: positive: Reviewed and negative - Other Other Information/Narrative: Trista says her pain is minimal and she has no nausea this morning. She feels she might be ready to go home but wants to be sure we have spoken with her daughter. Objective - Patient Data Vital Signs: Vital Signs x48h Temp Pulse Resp BP Pulse Ox 10/05/20 07:38 36.7 C 69 16 109/65 97 10/05/20 05:58 36.6 C 75 16 129/78 96 Weight: Weight 10/03/20 10/04/20 10/05/20 23:59 23:59 23:59 Weight (kg) 66 kg 66 kg Intake & Output: Intake and Output Totals x24h 10/03/20 10/04/20 10/05/20 23:59 23:59 23:59 Intake Total 2600 1371.66 1310 Output Total 500 350 Balance 2100 1021.66 1310 - Lab Results Lab Results: 10/05/20 08:01 10/05/20 08:01 Other Lab Results: Lab Results x24hrs 10/05/20 10/05/20 Range/Units 08:01 08:01 WBC 8.0 (4.8-10.8) x10^3/uL RBC 3.29 L (4.20-5.40) 10^6/uL Hgb 8.7 L (12.0-16.0) g/dL Hct 29.0 L (37.0-47.0) % MCV 88.1 (81.0-99.0) fL MCH 26.4 L (27.0-31.0) pg MCHC 30.0 L (32.0-36.0) g/dL RDW 15.0 (12.0-15.0) % Plt Count 262 (130-450) 10^3/uL MPV 9.2 (7.9-10.8) fL Neut # (Auto) 6.5 (1.5-6.6) 10^3/uL Lymph # (Auto) 0.8 L (1.5-3.5) 10^3/uL [place] # (Auto) 0.6 (0.0-1.0) 10^3/uL Eos # (Auto) 0.0 (0.0-0.7) 10^3/uL Baso # (Auto) 0.0 (0.0-0.1) 10^3/uL Absolute Nucleated RBC 0.00 x10^3/uL Nucleated RBC % 0.0 /100WBC Sodium 132 L (135-145) mmol/L Potassium 3.8 (3.5-5.0) mmol/L Chloride 99 L (101-111) mmol/L Carbon Dioxide 25 (21-32) mmol/L Anion Gap 8.0 (6-13) BUN 19 (6-20) mg/dL Creatinine 1.1 H (0.4-1.0) mg/dL Estimated GFR (MDRD) 50 L (>89) Glucose 186 H (70-100) mg/dL Calcium 7.4 L (8.5-10.3) mg/dL - Current Medications Current Medications: Current Medications Generic Name Dose Route Start Last Admin Trade Name Freq PRN Reason Stop Dose Admin Potassium Chloride/Dextrose/Sod Cl 1,000 mls @ 100 mls/hr 10/04/20 09:00 10/05/20 08:43 IV 100 mls/hr .Q10H LEXIE Administration Insulin Aspart 1 - 5 unit 10/05/20 08:00 10/05/20 11:17 Insulin Aspart 300 Unit/3 Ml Pen SUBQ Not Given 0800,1200,1700,2100 [facility] Protocol Ondansetron HCl 4 mg 10/03/20 14:46 10/04/20 09:02 Ondansetron 4 Mg/2 Ml Vial IVP 4 mg Q6HR PRN Administration Nausea / Vomiting Sodium Chloride 10 ml 10/03/20 17:00 10/05/20 08:42 Sodium Chloride Flush 0.9% 10 Ml Syringe IVP 10 ml 0100,0900,1700 LEXIE Administration Throat Lozenges 1 lozenge 10/05/20 05:49 10/05/20 06:02 Benzocaine/Menthol Lozenge MM 1 lozenge Q2HR PRN Administration Throat pain Impression/Plan - Problem List Problem List: Abdominal mass and ascites. Dr. Nchotu will handle urgent referrals to Service Director Onc and Med Onc. She is appropriate for discharge from a surgical perspective
[2020-10-05] MEDS: ACETAMINOPHEN 325 MG TABLET PO PRN ×2 (13:23→19:06)
[2020-10-05] MEDS: ONDANSETRON 4 MG/2 ML VIAL IVP PRN (16:59)
--- NOTE | 2020-10-05 18:51 | PROVIDER PROGRESS NOTE ---
Assessment/Plan - Problem List (1) Omental metastasis Assessment/Plan: Gynecological oncology referral made with Dr. Kamila Mcwilliams in [place] Patient would follow-up with the [facility] clinic for medical oncology. She will be seen by palliative care in the outpatient setting (2) Acute kidney injury Assessment/Plan: Renal function continues to improve. Creatinine is 1.1 today. Estimated GFR is 50 We will continue IV hydration. (3) Dehydration Assessment/Plan: Continue IV hydration with D5W plus normal saline +20 mEq of potassium chloride at 100 ml/hr (4) Hypokalemia Assessment/Plan: Resolved. Patient's potassium is 3.8 today. Patient is receiving some supplemental potassium in IV hydration. (5) Nausea & vomiting Qualifiers: Vomiting type: unspecified Vomiting Intractability: intractable Qualified Code(s): R11.2 - Nausea with vomiting, unspecified Assessment/Plan: Improved. Continue Zofran as needed (6) Hx of essential hypertension Assessment/Plan: Patient is normotensive. 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 - Current Meds Current Meds: Current Medications Generic Name Dose Route Start Last Admin Trade Name Freq PRN Reason Stop Dose Admin Acetaminophen 650 mg 10/05/20 13:11 10/05/20 13:23 Acetaminophen 325 Mg Tablet PO 650 mg Q4HR PRN Administration Pain or Fever > 38C (100.4F) Potassium Chloride/Dextrose/Sod Cl 1,000 mls @ 100 mls/hr 10/04/20 09:00 10/05/20 08:43 IV 100 mls/hr .Q10H LEXIE Administration Insulin Aspart 1 - 5 unit 10/05/20 08:00 10/05/20 17:22 Insulin Aspart 300 Unit/3 Ml Pen SUBQ Not Given 0800,1200,1700,2100 [facility] Protocol Ondansetron HCl 4 mg 10/03/20 14:46 10/05/20 16:59 Ondansetron 4 Mg/2 Ml Vial IVP 4 mg Q6HR PRN Administration Nausea / Vomiting Sodium Chloride 10 ml 10/03/20 17:00 10/05/20 17:22 Sodium Chloride Flush 0.9% 10 Ml Syringe IVP Not Given 0100,0900,1700 LEXIE Throat Lozenges 1 lozenge 10/05/20 05:49 10/05/20 06:02 Benzocaine/Menthol Lozenge MM 1 lozenge Q2HR PRN Administration Throat pain - Lab Result Fish Bone Diagrams: 10/06/20 04:23 10/06/20 04:23 - Additional Planning My Orders: My Active Orders 10/05/20 13:11 Acetaminophen [Tylenol] 650 mg PO Q4HR PRN 10/05/20 Dinner Low Fiber [Soft (Low Fiber) Diet] [DIET] Subjective - Subjective Patient Reports: Other (Patient denies any complaints today. There has been no change in patient's clinical status. She continues to receive IV hydration.) Objective Vital Signs: Vital Signs - 24 hr 10/04/20 10/04/20 10/04/20 19:00 19:30 19:42 Temperature Heart Rate [ 74 73 73 Brachial] Respiratory Rate Blood Pressure 88/53 L 86/60 L 90/61 [Right Brachial artery] O2 Saturation 94 94 94 10/04/20 10/04/20 10/05/20 20:00 21:56 00:00 Temperature 36.6 C Heart Rate [ 74 76 Brachial] Respiratory 16 Rate Blood Pressure 96/60 102/64 117/70 [Right Brachial artery] O2 Saturation 94 95 10/05/20 10/05/20 10/05/20 05:58 07:38 11:21 Temperature 36.6 C 36.7 C 36.8 C Heart Rate [ 75 69 73 Brachial] Respiratory 16 16 16 Rate Blood Pressure 129/78 109/65 116/71 [Right Brachial artery] O2 Saturation 96 97 97 10/05/20 16:00 Temperature 36.7 C Heart Rate [ 78 Brachial] Respiratory 16 Rate Blood Pressure 121/83 H [Right Brachial artery] O2 Saturation 98 Oxygen O2 Source Room air I&O (Last 24 Hrs): Intake and Output Totals x24h 10/03/20 10/04/20 10/05/20 23:59 23:59 23:59 Intake Total 2600 1371.66 1790 Output Total 500 350 400 Balance 2100 1021.66 1390 General: Alert, Oriented x3, Other (Flat affect) HEENT: Atraumatic, PERRLA, EOMI Neck: Supple, No JVD Neuro: Alert, Oriented Times 3 Cardiovascular: Regular rate Respiratory: Chest non-tender, No respiratory distress, Breath sounds nml Abdomen: Normal bowel sounds, Soft, Other (Mild abdominal tenderness) Extremities: No clubbing, No cyanosis, No edema Skin: No rashes - Results Results: Laboratory Results WBC 8.0 x10^3/uL (4.8-10.8) 10/05/20 08:01 RBC 3.29 10^6/uL (4.20-5.40) L 10/05/20 08:01 Hgb 8.7 g/dL (12.0-16.0) L 10/05/20 08:01 Hct 29.0 % (37.0-47.0) L 10/05/20 08:01 MCV 88.1 fL (81.0-99.0) 10/05/20 08:01 MCH 26.4 pg (27.0-31.0) L 10/05/20 08:01 MCHC 30.0 g/dL (32.0-36.0) L 10/05/20 08:01 RDW 15.0 % (12.0-15.0) 10/05/20 08:01 Plt Count 262 10^3/uL (130-450) 10/05/20 08:01 MPV 9.2 fL (7.9-10.8) 10/05/20 08:01 Neut # (Auto) 6.5 10^3/uL (1.5-6.6) 10/05/20 08:01 Lymph # (Auto) 0.8 10^3/uL (1.5-3.5) L 10/05/20 08:01 Lynn # (Auto) 0.6 10^3/uL (0.0-1.0) 10/05/20 08:01 Eos # (Auto) 0.0 10^3/uL (0.0-0.7) 10/05/20 08:01 Baso # (Auto) 0.0 10^3/uL (0.0-0.1) 10/05/20 08:01 Absolute Nucleated RBC 0.00 x10^3/uL 10/05/20 08:01 Nucleated RBC % 0.0 /100WBC 10/05/20 08:01 Sodium 132 mmol/L (135-145) L 10/05/20 08:01 Potassium 3.8 mmol/L (3.5-5.0) 10/05/20 08:01 Chloride 99 mmol/L (101-111) L 10/05/20 08:01 Carbon Dioxide 25 mmol/L (21-32) 10/05/20 08:01 Anion Gap 8.0 (6-13) 10/05/20 08:01 BUN 19 mg/dL (6-20) 10/05/20 08:01 Creatinine 1.1 mg/dL (0.4-1.0) H 10/05/20 08:01 Estimated GFR (MDRD) 50 (>89) L 10/05/20 08:01 Glucose 186 mg/dL (70-100) H 10/05/20 08:01 Calcium 7.4 mg/dL (8.5-10.3) L 10/05/20 08:01 Phosphorus 2.7 mg/dL (2.5-4.6) 10/03/20 12:39 Magnesium 2.5 mg/dL (1.7-2.8) 10/03/20 12:39 Total Bilirubin 1.4 mg/dL (0.2-1.0) H 10/03/20 12:39 AST 19 IU/L (10-42) 10/03/20 12:39 ALT < 10 IU/L (10-60) L 10/03/20 12:39 Alkaline Phosphatase 51 IU/L (42-121) 10/03/20 12:39 Total Protein 7.1 g/dL (6.7-8.2) 10/03/20 12:39 Albumin 3.5 g/dL (3.2-5.5) 10/03/20 12:39 Globulin 3.6 g/dL (2.1-4.2) 10/03/20 12:39 Albumin/Globulin Ratio 1.0 (1.0-2.2) 10/03/20 12:39 Lipase 48 U/L (22-51) 10/03/20 12:39 Tumor Marker AFP 1.2 ng/mL 10/04/20 04:49 Carcinoembryonic Ag 1.5 ng/mL 10/04/20 04:49 CA 125 Antigen 938.7 U/mL (0.0-35.0) H 10/04/20 04:49 Urine Color YELLOW 10/03/20 16:37 Urine Clarity HAZY (CLEAR) 10/03/20 16:37 Urine pH 6.0 PH (5.0-7.5) 10/03/20 16:37 Ur Specific [place] 1.015 (1.002-1.030) 10/03/20 16:37 Urine Protein TRACE mg/dL (NEGATIVE) 10/03/20 16:37 Urine Glucose (UA) NEGATIVE mg/dL (NEGATIVE) 10/03/20 16:37 Urine Ketones 15 mg/dL (NEGATIVE) H 10/03/20 16:37 Urine Occult Blood TRACE-INTA (NEGATIVE) 10/03/20 16:37 Urine Nitrite POSITIVE (NEGATIVE) H 10/03/20 16:37 Urine Bilirubin NEGATIVE (NEGATIVE) 10/03/20 16:37 Urine Urobilinogen 2 E.U./dL (NORMAL) H 10/03/20 16:37 Ur Leukocyte Esterase LARGE (NEGATIVE) H 10/03/20 16:37 Urine RBC 0-5 /HPF (0-5) 10/03/20 16:37 Urine WBC >25 /HPF (0-5) H 10/03/20 16:37 Ur Squamous Epith Cells NONE SEEN (<= Few) 10/03/20 16:37 Urine Bacteria Many /HPF (None Seen) H 10/03/20 16:37 Ur Microscopic Review INDICATED 10/03/20 16:37 Urine Culture Comments INDICATED 10/03/20 16:37 Nasal Adenovirus (PCR) NOT DETECTED 10/03/20 14:50 Nasal B. parapertussis DNA (PCR) NOT DETECTED 10/03/20 14:50 Nasal Coronavir 229E PCR NOT DETECTED 10/03/20 14:50 Nasal Coronavir HKU1 PCR NOT DETECTED 10/03/20 14:50 Nasal Coronavir NL63 PCR NOT DETECTED 10/03/20 14:50 Nasal Coronavir OC43 PCR NOT DETECTED 10/03/20 14:50 Nasal Enterovir/Rhinovir PCR NOT DETECTED 10/03/20 14:50 Nasal Influenza B PCR NOT DETECTED 10/03/20 14:50 Nasal Influenza A PCR NOT DETECTED 10/03/20 14:50 Nasal Parainfluen 1 PCR NOT DETECTED 10/03/20 14:50 Nasal Parainfluen 2 PCR NOT DETECTED 10/03/20 14:50 Nasal Parainfluen 3 PCR NOT DETECTED 10/03/20 14:50 Nasal Parainfluen 4 PCR NOT DETECTED 10/03/20 14:50 Nasal RSV (PCR) NOT DETECTED 10/03/20 14:50 Nasal B.pertussis DNA PCR NOT DETECTED 10/03/20 14:50 Nasal C.pneumoniae (PCR) NOT DETECTED 10/03/20 14:50 Jm Human Metapneumo PCR NOT DETECTED 10/03/20 14:50 Nasal M.pneumoniae (PCR) NOT DETECTED 10/03/20 14:50 Nasal SARS-CoV-2 (PCR) NOT DETECTED 10/03/20 14:50 Urine Opiates Screen NEGATIVE (NEGATIVE) 10/03/20 16:37 Ur Oxycodone Screen NEGATIVE (NEGATIVE) 10/03/20 16:37 Urine Methadone Screen NEGATIVE (NEGATIVE) 10/03/20 16:37 Ur Propoxyphene Screen NEGATIVE (NEGATIVE) 10/03/20 16:37 Ur Barbiturates Screen NEGATIVE (NEGATIVE) 10/03/20 16:37 Ur Tricyclics Screen NEGATIVE (NEGATIVE) 10/03/20 16:37 Ur Phencyclidine Scrn NEGATIVE (NEGATIVE) 10/03/20 16:37 Ur Amphetamine Screen NEGATIVE (NEGATIVE) 10/03/20 16:37 U Methamphetamines Scrn NEGATIVE (NEGATIVE) 10/03/20 16:37 U Benzodiazepines Scrn NEGATIVE (NEGATIVE) 10/03/20 16:37 Urine Cocaine Screen NEGATIVE (NEGATIVE) 10/03/20 16:37 U Cannabinoids Screen NEGATIVE (NEGATIVE) 10/03/20 16:37 ABX Reporting Has patient been on IV antibiotics over the past 48 hours?: No
[2020-10-05] MEDS: ZOLPIDEM 5 MG TABLET PO PRN (19:07)
[2020-10-05] MEDS: PROCHLORPERAZINE 10 MG/2 ML VIAL IVP PRN (19:25)
[2020-10-06 05:07] LABS: BASOPHILS # (AUTO) 0.1 10^3/uL (0.0-0.1); BASOPHILS % (AUTO) 0.7 %; EOSINOPHILS # (AUTO) 0.1 10^3/uL (0.0-0.7); EOSINOPHILS % (AUTO) 1.6 %; HGB - HEMOGLOBIN 8.7 g/dL (12.0-16.0); LYMPHOCYTES # (AUTO) 1.3 10^3/uL (1.5-3.5); LYMPHOCYTES % (AUTO) 19.8 %; MEAN CORPUSCULAR HEMOGLOBIN 26.1 pg (27.0-31.0); MEAN CORPUSCULAR HGB CONC 29.3 g/dL (32.0-36.0); MEAN CORPUSCULAR VOLUME 89.2 fL (81.0-99.0); MEAN PLATELET VOLUME 9.4 fL (7.9-10.8); MONOCYTES # (AUTO) 0.6 10^3/uL (0.0-1.0); MONOCYTES % (AUTO) 8.1 %; NEUTROPHILS # (AUTO) 4.7 10^3/uL (1.5-6.6); NEUTROPHILS % (AUTO) 68.8 %; PLT - PLATELET COUNT 257 10^3/uL (130-450); RED BLOOD COUNT 3.33 10^6/uL (4.20-5.40); RED CELL DISTRIBUTION WIDTH 15.1 % (12.0-15.0); WHITE BLOOD COUNT 6.8 x10^3/uL (4.8-10.8)
[2020-10-06 05:09] LABS: CALCIUM 7.5 mg/dL (8.5-10.3)
[2020-10-06] MEDS: D5NS W/20 MEQ KCL 1,000 ML IV SCH ×2 (05:22→13:57)
[2020-10-06] MEDS: INSULIN ASPART 300 UNIT/3 ML PEN SUBQ SCH ×4 (10:25→21:26)
[2020-10-06] MEDS: SODIUM CHLORIDE FLUSH 0.9% 10 ML SYRINGE IVP PRN (12:06)
[2020-10-06] MEDS: ONDANSETRON 4 MG/2 ML VIAL IVP PRN (12:06)
[2020-10-06] MEDS: SODIUM CHLORIDE FLUSH 0.9% 10 ML SYRINGE IVP SCH ×2 (13:44→18:08)
--- NOTE | 2020-10-06 15:12 | DISCHARGE SUMMARY ---
Discharge Summary Admit Date: 10/03/20 Discharge Date: 10/06/20 Discharging Provider: Darien Prakash Primary Care Provider: Anusha Jc Code Status: Attempt Resuscitation Condition at Discharge: Stable Discharge Disposition: SNF DC/Xfer Discharge Facility [facility]: [facility] - DIAGNOSES Admission Diagnoses: Omental metastasis: Further work-up outpatient Nausea and vomiting: Resolved Acute kidney injury: Resolved Hypokalemia: Resolved Type 2 diabetes mellitus: Chronic Hyperlipidemia: Chronic History of CVA Discharge Diagnoses with Status of Each Condition: Omental metastasis: Further work-up outpatient Nausea and vomiting: Resolved Acute kidney injury: Resolved Hypokalemia: Resolved Type 2 diabetes mellitus: Chronic Hyperlipidemia: Chronic History of CVA - HPI History of Present Illness: Per HPI: This is a 60 y/o F with a history of Type 2 DM, HTN, hyperlipidemia, and CVA x2 who presented to the ED via EMS for intractable nausea and vomiting. She has been seen multiple times for this reason since mid-August. She says that she has been vomiting about every 20 minutes for the last 3 weeks. She says the vomit is green. Oral intake aggravates her symptoms, there are no alleviating factors. She still has an appetite but is unable to hold anything down. She has lost 20 lbs in the last month. She denies any hemoptysis, chest pain, shortness of breath, palpitations. Her CT abdomen/pelvis w/o contrast revealed definite likely malignant thickening of the omentum best seen at the left upper quadrant, ventral to the spleen that also extends inferiorly along the anterior peritoneal space into the pelvis. Her chemistry panel is notable for an elevated BUN (39), GFR of 31, elevated creatinine (1.7, baseline 1.2-1.5), hypokalemia (2.3) and hypochloremia (78). She is being admitted to have her electrolyte imbalance corrected before being taken to the OR to have a laproscopic biopsy. - HOSPITAL COURSE Hospital Course: She was treated given normal saline intravenously for hydration. Over the course of 3 days her creatinine improved from 1.7 down to 1.0. Her estimated GFR improved from 46-56. She also received Zofran and Compazine as needed for nausea and vomiting. By the time of discharge the nausea vomiting had resolved. Her diet was advanced as tolerated. She was discharged home on a low fiber mechanical soft diet. She underwent laparoscopic biopsy by Dr Jinny Mabry with general surgery on 10/04/20. Samples were sent out for pathology. CA125 level was 935. 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 Her potassium level was replaced. By discharge her potassium level was 3.8. The rest of the patient's stay was unremarkable. The patient has a referral with gynecologic oncology in [place]: Dr. Kamila Mcwilliams. She will also see medical oncology at the [facility]. She will be seen by palliative care in the outpatient setting: Mayda Kearney She is to follow-up with her primary care physician within 7 days: Anusha Hansen - ALLERGIES Allergies/Adverse Reactions: Allergies Allergy/AdvReac Type Severity Reaction Status Date / Time acetaminophen [From Percocet] AdvReac Emesis Verified 10/03/20 10:34 metformin AdvReac Emesis Verified 10/03/20 10:34 oxycodone [From Percocet] AdvReac Emesis Verified 10/03/20 10:34 - MEDICATIONS Home Medications: Ambulatory Orders Medication Instructions Recorded Confirmed Atorvastatin Calcium [Lipitor] 80 mg PO DAILY 09/04/20 10/03/20 Clopidogrel [Plavix] 75 mg PO DAILY 09/04/20 10/03/20 Lisinopril/Hydrochlorothiazide 20 - 25 mg PO DAILY 09/04/20 10/03/20 [Zestoretic 20-25 mg Tablet] Meloxicam [Mobic] 7.5 mg PO DAILY 09/04/20 10/03/20 Pioglitazone HCl [Actos] 30 mg PO DAILY 09/04/20 10/03/20 amLODIPine [Norvasc] 5 mg PO DAILY 09/04/20 10/03/20 hydrOXYzine HCL [Hydroxyzine HCl] 50 - 100 mg PO HS PRN 09/04/20 10/03/20 Ferrous Sulfate Liquid [Feosol 300 mg PO DAILYWM #30 udc 09/07/20 10/03/20 Liquid] Folic Acid 1 mg PO DAILY #30 tablet 09/07/20 10/03/20 Ondansetron Odt [Zofran Odt] 4 mg TL Q6H PRN #10 tablet 09/07/20 10/03/20 Metoclopramide [Reglan] 10 mg PO Q6H PRN #20 tablet 09/09/20 10/03/20 Mirtazapine [Remeron] 7.5 mg PO DAILY PM 10/03/20 10/03/20 Omeprazole [PriLOSEC] 20 mg PO BID 10/03/20 10/03/20 - LABS Result Diagrams: 10/06/20 04:23 10/06/20 04:23
--- NOTE | 2020-10-06 15:28 | Discharge Plan ---
"Discharge Plan for SNF / [facility] - Discharge Plan And Transition Orders Problem Reviewed?: Yes Disposition: 03 SNF DC/Xfer Condition: Stable Allergies and Adverse Reactions: Allergies Allergy/AdvReac Type Severity Reaction Status Date / Time acetaminophen [From Percocet] AdvReac Emesis Verified 10/03/20 10:34 metformin AdvReac Emesis Verified 10/03/20 10:34 oxycodone [From Percocet] AdvReac Emesis Verified 10/03/20 10:34 Health Concerns: You were admitted 3 days ago with nausea and vomiting. Work-up included CT scan of the abdomen pelvis which showed thickening of the omentum Which was suspected to be malignant. It was recommended that a laparoscopic biopsy be done. This was done by general surgery Dr. 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 The samples have been sent out for pathology You had a CA125 cancer marker done which was elevated at 935. It is suspected that the origin of your cancer is the ovaries. The nausea/vomiting was treated with Zofran and Compazine. It resolved by the time of discharge You were able to tolerate low fiber diet. You had minimal pain throughout your stay in the hospital which was adequately controlled with Tylenol. You may continue to use [id number] Tylenol as needed at home for pain. You had port placed for Future medication administration and blood draws. You also had acute kidney injury from the nausea and vomiting. You received IV hydration during your 3-day stay and your creatinine improved from 2.2 to 1.0 The findings of your biopsy were discussed with you and you requested that we talk to your daughter as well. This was done. You have a referral to follow-up with gynecologic oncology in [place]. Her name is Dr. Kamila Mcwilliams You will also follow-up with medical oncology at the [facility] here in [facility] You are to follow-up with your primary care physician Anusha Jc within 7 days. You will also be seen by Kristal Kearney with palliative care in the outpatient setting Plan of Treatment: You were admitted 3 days ago with nausea and vomiting. Work-up included CT scan of the abdomen pelvis which showed thickening of the omentum Which was suspected to be malignant. It was recommended that a laparoscopic biopsy be done. This was done by general surgery Dr. 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 The samples have been sent out for pathology You had a CA125 cancer marker done which was elevated at 935. It is suspected that the origin of your cancer is the ovaries. The nausea/vomiting was treated with Zofran and Compazine. It resolved by the time of discharge You were able to tolerate low fiber diet. You had minimal pain throughout your stay in the hospital which was adequately controlled with Tylenol. You may continue to use [id number] Tylenol as needed at home for pain. You had port placed for Future medication administration and blood draws. You also had acute kidney injury from the nausea and vomiting. You received IV hydration during your 3-day stay and your creatinine improved from 2.2 to 1.0 The findings of your biopsy were discussed with you and you requested that we talk to your daughter as well. This was done. You have a referral to follow-up with gynecologic oncology in [place]. Her name is Dr. Kamila Mcwilliams You will also follow-up with medical oncology at the [facility] here in [facility] You are to follow-up with your primary care physician Anusha Jc within 7 days. You will also be seen by Kristal Kearney with palliative care in the outpatient setting Care Goals: You were admitted 3 days ago with nausea and vomiting. Work-up included CT scan of the abdomen pelvis which showed thickening of the omentum Which was suspected to be malignant. It was recommended that a laparoscopic biopsy be done. This was done by general surgery Dr. 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 The samples have been sent out for pathology You had a CA125 cancer marker done which was elevated at 935. It is suspected that the origin of your cancer is the ovaries. The nausea/vomiting was treated with Zofran and Compazine. It resolved by the time of discharge You were able to tolerate low fiber diet. You had minimal pain throughout your stay in the hospital which was adequately controlled with Tylenol. You may continue to use [id number] Tylenol as needed at home for pain. You had port placed for Future medication administration and blood draws. You also had acute kidney injury from the nausea and vomiting. You received IV hydration during your 3-day stay and your creatinine improved from 2.2 to 1.0 The findings of your biopsy were discussed with you and you requested that we talk to your daughter as well. This was done. You have a referral to follow-up with gynecologic oncology in [place]. Her name is Dr. Kamila Mcwilliams You will also follow-up with medical oncology at the [facility] here in [facility] You are to follow-up with your primary care physician Anusha Jc within 7 days. You will also be seen by Kristal Kearney with palliative care in the outpatient setting Assessment: Patient expressed understanding of the information provided her. - SNF / [facility] Transition Orders Admit to (Facility): Home Under the care of (Name): Anusha Jc Discharge Diagnosis: Omental metastasis: Further work-up outpatient Nausea and vomiting: Resolved Acute kidney injury: Resolved Hypokalemia: Resolved Type 2 diabetes mellitus: Chronic Hyperlipidemia: Chronic History of CVA Medicare Certification Statement: I certify that [facility] is medically necessary on a continuing basis for any of the conditions for which she/he is receiving care during hospitalization. Notify PCP of admission and forward orders to primary provider for signature. Other Notification Orders: Call PCP immediately if patient develops dyspnea, chest pain/tightness or edema. Additional Bowel Program Orders: If no BM after 2 days, nurse may give M.O.M. 30ml PO PRN and/or ducolax Supp 1 CT and/or JOSE 250mg P.O., and/or senna 1-2 tabs PO. On day 3 nurse may give repeat above order until residents constipation is resolved. Medication Orders: PLEASE REFER TO THE DISCHARGE MEDICATION LIST. - Diet Type: Low fiber Texture: Mech soft - Therapies | Activity Activity: Activity as Tolerated Follow Up: Palliative care outpatient: Kristal Kearney Medical oncology: [facility] Gynecological oncology: Kamila Mcwilliams Primary care physician: Anusha Jc"
--- NOTE | 2020-10-06 16:08 | PROVIDER PROGRESS NOTE ---
Assessment/Plan - Problem List (1) Omental metastasis Assessment/Plan: Gynecological oncology referral made with Dr. Kamila Mcwililams in [place] Patient would follow-up with the [facility] clinic for medical oncology. She will be seen by palliative care in the outpatient setting (2) Nausea & vomiting Qualifiers: Vomiting type: unspecified Vomiting Intractability: intractable Qualified Code(s): R11.2 - Nausea with vomiting, unspecified Assessment/Plan: Shortly before discharge today the patient had a significant emesis which required all her bedding's change. She later informed staff that she had vomited 4 times today. As a result the discharge was suspended for further evaluation and treatment overnight. If the patient remains stable will consider discharge again tomorrow morning. (3) Acute kidney injury Assessment/Plan: Resolved. Creatinine today is 1.0 with GFR 56. (4) Dehydration Assessment/Plan: Resolved. Patient is on D5 normal saline with 20 mEq of potassium chloride at 100 mL/h. 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 - Current Meds Current Meds: Current Medications Generic Name Dose Route Start Last Admin Trade Name Freq PRN Reason Stop Dose Admin Potassium Chloride/Dextrose/Sod Cl 1,000 mls @ 100 mls/hr 10/04/20 09:00 10/06/20 13:57 IV 100 mls/hr .Q10H LEXIE Administration Insulin Aspart 1 - 5 unit 10/05/20 08:00 10/06/20 13:44 Insulin Aspart 300 Unit/3 Ml Pen SUBQ Not Given 0800,1200,1700,2100 [facility] Protocol Ondansetron HCl 4 mg 10/03/20 14:46 10/06/20 12:06 Ondansetron 4 Mg/2 Ml Vial IVP 4 mg Q6HR PRN Administration Nausea / Vomiting Prochlorperazine Edisylate 10 mg 10/03/20 14:46 10/05/20 19:25 Prochlorperazine 10 Mg/2 Ml Vial IVP 10 mg Q6HR PRN Administration Nausea / Vomiting Sodium Chloride 10 ml 10/03/20 14:46 10/06/20 12:06 Sodium Chloride Flush 0.9% 10 Ml Syringe IVP 10 ml PRN PRN Administration NEEDED PER PROVIDER ORDERS Sodium Chloride 10 ml 10/03/20 17:00 10/06/20 13:44 Sodium Chloride Flush 0.9% 10 Ml Syringe IVP Not Given 0100,0900,1700 LEXIE Throat Lozenges 1 lozenge 10/05/20 05:49 10/05/20 06:02 Benzocaine/Menthol Lozenge MM 1 lozenge Q2HR PRN Administration Throat pain Zolpidem Tartrate 5 mg 10/03/20 21:49 10/05/20 19:07 Zolpidem 5 Mg Tablet PO 5 mg QPM PRN Administration Insomnia - Lab Result Fish Bone Diagrams: 10/06/20 04:23 10/06/20 04:23 - Additional Planning My Orders: My Active Orders 10/05/20 Dinner Low Fiber [Soft (Low Fiber) Diet] [DIET] 10/06/20 15:38 Palliative Care Consult [CONS] Routine 10/06/20 16:05 Acetaminophen [Tylenol] 650 mg PO Q4HR PRN Subjective - Subjective Patient Reports: Other (Patient was in the process of being discharged today when it was brought to my attention that she had a large emesis. It was to the extent that all her beddings had to be changed. She subsequently informed nursing staff that she had 4 episodes of vomiting today. She rated her abdominal pain 2/10) Objective Vital Signs: Vital Signs - 24 hr 10/05/20 10/06/20 10/06/20 23:33 03:03 08:00 Temperature 36.3 C L 36.4 C L 36.6 C Heart Rate [ 72 75 77 Brachial] Respiratory 18 16 16 Rate Blood Pressure 107/65 115/63 106/68 [Right Brachial artery] O2 Saturation 95 96 97 Oxygen O2 Source Room air I&O (Last 24 Hrs): Intake and Output Totals x24h 10/04/20 10/05/20 10/06/20 23:59 23:59 23:59 Intake Total 1371.66 2890 2393.333 Output Total 350 585 0 Balance 1021.66 2305 2393.333 General: Alert, Oriented x3, Mild distress HEENT: PERRLA, EOMI Neck: Supple, No JVD Neuro: Alert, Oriented Times 3 Cardiovascular: Regular rate Respiratory: Chest non-tender, No respiratory distress, Breath sounds nml Abdomen: Normal bowel sounds, Soft Extremities: No clubbing, No cyanosis, No edema, Normal pulses - Results Results: Laboratory Results WBC 6.8 x10^3/uL (4.8-10.8) 10/06/20 04:23 RBC 3.33 10^6/uL (4.20-5.40) L 10/06/20 04:23 Hgb 8.7 g/dL (12.0-16.0) L 10/06/20 04:23 Hct 29.7 % (37.0-47.0) L 10/06/20 04:23 MCV 89.2 fL (81.0-99.0) 10/06/20 04:23 MCH 26.1 pg (27.0-31.0) L 10/06/20 04:23 MCHC 29.3 g/dL (32.0-36.0) L 10/06/20 04:23 RDW 15.1 % (12.0-15.0) H 10/06/20 04:23 Plt Count 257 10^3/uL (130-450) 10/06/20 04:23 MPV 9.4 fL (7.9-10.8) 10/06/20 04:23 Neut # (Auto) 4.7 10^3/uL (1.5-6.6) 10/06/20 04:23 Lymph # (Auto) 1.3 10^3/uL (1.5-3.5) L 10/06/20 04:23 [place] # (Auto) 0.6 10^3/uL (0.0-1.0) 10/06/20 04:23 Eos # (Auto) 0.1 10^3/uL (0.0-0.7) 10/06/20 04:23 Baso # (Auto) 0.1 10^3/uL (0.0-0.1) 10/06/20 04:23 Absolute Nucleated RBC 0.00 x10^3/uL 10/06/20 04:23 Nucleated RBC % 0.0 /100WBC 10/06/20 04:23 Sodium 135 mmol/L (135-145) 10/06/20 04:23 Potassium 3.8 mmol/L (3.5-5.0) 10/06/20 04:23 Chloride 103 mmol/L (101-111) 10/06/20 04:23 Carbon Dioxide 24 mmol/L (21-32) 10/06/20 04:23 Anion Gap 8.0 (6-13) 10/06/20 04:23 BUN 13 mg/dL (6-20) 10/06/20 04:23 Creatinine 1.0 mg/dL (0.4-1.0) 10/06/20 04:23 Estimated GFR (MDRD) 56 (>89) L 10/06/20 04:23 Glucose 101 mg/dL (70-100) H 10/06/20 04:23 Calcium 7.5 mg/dL (8.5-10.3) L 10/06/20 04:23 Phosphorus 2.7 mg/dL (2.5-4.6) 10/03/20 12:39 Magnesium 2.5 mg/dL (1.7-2.8) 10/03/20 12:39 Total Bilirubin 1.4 mg/dL (0.2-1.0) H 10/03/20 12:39 AST 19 IU/L (10-42) 10/03/20 12:39 ALT < 10 IU/L (10-60) L 10/03/20 12:39 Alkaline Phosphatase 51 IU/L (42-121) 10/03/20 12:39 Total Protein 7.1 g/dL (6.7-8.2) 10/03/20 12:39 Albumin 3.5 g/dL (3.2-5.5) 10/03/20 12:39 Globulin 3.6 g/dL (2.1-4.2) 10/03/20 12:39 Albumin/Globulin Ratio 1.0 (1.0-2.2) 10/03/20 12:39 Lipase 48 U/L (22-51) 10/03/20 12:39 Tumor Marker AFP 1.2 ng/mL 10/04/20 04:49 Carcinoembryonic Ag 1.5 ng/mL 10/04/20 04:49 CA 125 Antigen 938.7 U/mL (0.0-35.0) H 10/04/20 04:49 Urine Color YELLOW 10/03/20 16:37 Urine Clarity HAZY (CLEAR) 10/03/20 16:37 Urine pH 6.0 PH (5.0-7.5) 10/03/20 16:37 Ur Specific [place] 1.015 (1.002-1.030) 10/03/20 16:37 Urine Protein TRACE mg/dL (NEGATIVE) 10/03/20 16:37 Urine Glucose (UA) NEGATIVE mg/dL (NEGATIVE) 10/03/20 16:37 Urine Ketones 15 mg/dL (NEGATIVE) H 10/03/20 16:37 Urine Occult Blood TRACE-INTA (NEGATIVE) 10/03/20 16:37 Urine Nitrite POSITIVE (NEGATIVE) H 10/03/20 16:37 Urine Bilirubin NEGATIVE (NEGATIVE) 10/03/20 16:37 Urine Urobilinogen 2 E.U./dL (NORMAL) H 10/03/20 16:37 Ur Leukocyte Esterase LARGE (NEGATIVE) H 10/03/20 16:37 Urine RBC 0-5 /HPF (0-5) 10/03/20 16:37 Urine WBC >25 /HPF (0-5) H 10/03/20 16:37 Ur Squamous Epith Cells NONE SEEN (<= Few) 10/03/20 16:37 Urine Bacteria Many /HPF (None Seen) H 10/03/20 16:37 Ur Microscopic Review INDICATED 10/03/20 16:37 Urine Culture Comments INDICATED 10/03/20 16:37 Nasal Adenovirus (PCR) NOT DETECTED 10/03/20 14:50 Nasal B. parapertussis DNA (PCR) NOT DETECTED 10/03/20 14:50 Nasal Coronavir 229E PCR NOT DETECTED 10/03/20 14:50 Nasal Coronavir HKU1 PCR NOT DETECTED 10/03/20 14:50 Nasal Coronavir NL63 PCR NOT DETECTED 10/03/20 14:50 Nasal Coronavir OC43 PCR NOT DETECTED 10/03/20 14:50 Nasal Enterovir/Rhinovir PCR NOT DETECTED 10/03/20 14:50 Nasal Influenza B PCR NOT DETECTED 10/03/20 14:50 Nasal Influenza A PCR NOT DETECTED 10/03/20 14:50 Nasal Parainfluen 1 PCR NOT DETECTED 10/03/20 14:50 Nasal Parainfluen 2 PCR NOT DETECTED 10/03/20 14:50 Nasal Parainfluen 3 PCR NOT DETECTED 10/03/20 14:50 Nasal Parainfluen 4 PCR NOT DETECTED 10/03/20 14:50 Nasal RSV (PCR) NOT DETECTED 10/03/20 14:50 Nasal B.pertussis DNA PCR NOT DETECTED 10/03/20 14:50 Nasal C.pneumoniae (PCR) NOT DETECTED 10/03/20 14:50 Jm Human Metapneumo PCR NOT DETECTED 10/03/20 14:50 Nasal M.pneumoniae (PCR) NOT DETECTED 10/03/20 14:50 Nasal SARS-CoV-2 (PCR) NOT DETECTED 10/03/20 14:50 Urine Opiates Screen NEGATIVE (NEGATIVE) 10/03/20 16:37 Ur Oxycodone Screen NEGATIVE (NEGATIVE) 10/03/20 16:37 Urine Methadone Screen NEGATIVE (NEGATIVE) 10/03/20 16:37 Ur Propoxyphene Screen NEGATIVE (NEGATIVE) 10/03/20 16:37 Ur Barbiturates Screen NEGATIVE (NEGATIVE) 10/03/20 16:37 Ur Tricyclics Screen NEGATIVE (NEGATIVE) 10/03/20 16:37 Ur Phencyclidine Scrn NEGATIVE (NEGATIVE) 10/03/20 16:37 Ur Amphetamine Screen NEGATIVE (NEGATIVE) 10/03/20 16:37 U Methamphetamines Scrn NEGATIVE (NEGATIVE) 10/03/20 16:37 U Benzodiazepines Scrn NEGATIVE (NEGATIVE) 10/03/20 16:37 Urine Cocaine Screen NEGATIVE (NEGATIVE) 10/03/20 16:37 U Cannabinoids Screen NEGATIVE (NEGATIVE) 10/03/20 16:37 ABX Reporting Has patient been on IV antibiotics over the past 48 hours?: No
[2020-10-06] MEDS: ACETAMINOPHEN 325 MG TABLET PO PRN (16:11)
[2020-10-07] MEDS: D5NS W/20 MEQ KCL 1,000 ML IV SCH ×3 (02:10→22:21)
[2020-10-07] MEDS: SODIUM CHLORIDE FLUSH 0.9% 10 ML SYRINGE IVP SCH ×3 (02:10→17:16)
[2020-10-07] MEDS: ACETAMINOPHEN 325 MG TABLET PO PRN (03:51)
[2020-10-07] MEDS: ONDANSETRON ODT 4 MG TABLET TL SCH ×3 (06:49→16:30)
[2020-10-07] MEDS: INSULIN ASPART 300 UNIT/3 ML PEN SUBQ SCH ×4 (08:19→22:07)
--- NOTE | 2020-10-07 08:45 | PROVIDER PROGRESS NOTE ---
Assessment/Plan - Problem List (1) Omental metastasis Assessment/Plan: Gynecological oncology referral made with Dr. Kamila Mcwilliams in [place] Patient would follow-up with the [facility] clinic for medical oncology. She will be seen by palliative care in the outpatient setting (2) Nausea & vomiting Qualifiers: Vomiting type: unspecified Vomiting Intractability: intractable Qualified Code(s): R11.2 - Nausea with vomiting, unspecified Assessment/Plan: Nausea and vomiting persist. Patient had 3 episodes of vomiting last night and 4 episodes of vomiting this morning. Reglan IV as needed was added to Zofran for nausea. Abdominal x-ray did not show any obstruction. Patient is N.p.o. for now. We will continue IV hydration with D5 plus normal saline +20 mEq of potassium at 100 mils per hour. (3) Acute kidney injury Assessment/Plan: Resolved. Patient's creatinine today was 0.9 with an estimated GFR of 64. (4) Dehydration Assessment/Plan: Resolved. Will maintain patient on IV hydration with D5 normal saline +20 mEq of potassium at 100 mils per hour while patient is n.p.o. due to nausea and vomiting. 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 - Current Meds Current Meds: Current Medications Generic Name Dose Route Start Last Admin Trade Name Freq PRN Reason Stop Dose Admin Acetaminophen 650 mg 10/06/20 16:05 10/07/20 03:51 Acetaminophen 325 Mg Tablet PO 650 mg Q4HR PRN Administration Pain or Fever > 38C (100.4F) Potassium Chloride/Dextrose/Sod Cl 1,000 mls @ 100 mls/hr 10/04/20 09:00 10/07/20 02:10 IV 100 mls/hr .Q10H LEXIE Administration Insulin Aspart 1 - 5 unit 10/05/20 08:00 10/07/20 08:19 Insulin Aspart 300 Unit/3 Ml Pen SUBQ Not Given 0800,1200,1700,2100 LEX[facility] Protocol Ondansetron HCl 4 mg 10/03/20 14:46 10/06/20 12:06 Ondansetron 4 Mg/2 Ml Vial IVP 4 mg Q6HR PRN Administration Nausea / Vomiting Ondansetron HCl 4 mg 10/07/20 07:00 10/07/20 06:49 Ondansetron Odt 4 Mg Tablet TL 4 mg AC LEXIE Administration Prochlorperazine Edisylate 10 mg 10/03/20 14:46 10/05/20 19:25 Prochlorperazine 10 Mg/2 Ml Vial IVP 10 mg Q6HR PRN Administration Nausea / Vomiting Sodium Chloride 10 ml 10/03/20 14:46 10/06/20 12:06 Sodium Chloride Flush 0.9% 10 Ml Syringe IVP 10 ml PRN PRN Administration NEEDED PER PROVIDER ORDERS Sodium Chloride 10 ml 10/03/20 17:00 10/07/20 08:19 Sodium Chloride Flush 0.9% 10 Ml Syringe IVP Not Given 0100,0900,1700 LEXIE Throat Lozenges 1 lozenge 10/05/20 05:49 10/05/20 06:02 Benzocaine/Menthol Lozenge MM 1 lozenge Q2HR PRN Administration Throat pain Zolpidem Tartrate 5 mg 10/03/20 21:49 10/05/20 19:07 Zolpidem 5 Mg Tablet PO 5 mg QPM PRN Administration Insomnia - Lab Result Fish Bone Diagrams: 10/08/20 06:02 10/08/20 04:12 - Additional Planning My Orders: My Active Orders 10/06/20 15:38 Palliative Care Consult [CONS] Routine 10/06/20 16:05 Acetaminophen [Tylenol] 650 mg PO Q4HR PRN 10/07/20 08:44 BMP - BASIC METABOLIC PANEL [CHEM] Routine CBC - COMP BLD CT W/AUTO DIFF [HEME] Routine 10/07/20 09:00 Folic Acid 1 mg PO DAILY 10/08/20 05:00 BMP - BASIC METABOLIC PANEL [CHEM] DAILYLAB CBC - COMP BLD CT W/AUTO DIFF [HEME] DAILYLAB 10/09/20 05:00 BMP - BASIC METABOLIC PANEL [CHEM] DAILYLAB CBC - COMP BLD CT W/AUTO DIFF [HEME] DAILYLAB 10/10/20 05:00 BMP - BASIC METABOLIC PANEL [CHEM] DAILYLAB CBC - COMP BLD CT W/AUTO DIFF [HEME] DAILYLAB 10/11/20 05:00 BMP - BASIC METABOLIC PANEL [CHEM] DAILYLAB CBC - COMP BLD CT W/AUTO DIFF [HEME] DAILYLAB Subjective - Subjective Patient Reports: Other (Patient had 3 episodes of vomiting overnight and 4 episodes of vomiting this morning. She reported mild abdominal pain. She denied any other complaints.) Objective Vital Signs: Vital Signs - 24 hr 10/06/20 10/07/20 10/07/20 16:00 00:00 08:00 Temperature 37.1 C 36.9 C 36.6 C Heart Rate [ 94 86 85 Brachial] Respiratory 16 16 16 Rate Blood Pressure 114/88 H 138/82 H 137/76 H [Right Brachial artery] O2 Saturation 98 97 97 Oxygen O2 Source Room air I&O (Last 24 Hrs): Intake and Output Totals x24h 10/05/20 10/06/20 10/07/20 23:59 23:59 23:59 Intake Total 2890 3393.333 Output Total 585 77 275 Balance 2305 3316.333 -275 General: Alert, Oriented x3, Mild distress, Other (Flat affect) HEENT: Atraumatic, PERRLA, EOMI Neck: Supple, No JVD Neuro: Alert, Oriented Times 3 Cardiovascular: Regular rate Respiratory: Chest non-tender, No respiratory distress Abdomen: Other (Mild abdominal tenderness. Vomiting) Extremities: No clubbing, No cyanosis, No edema Skin: No rashes - Results Results: Laboratory Results WBC 6.8 x10^3/uL (4.8-10.8) 10/06/20 04:23 RBC 3.33 10^6/uL (4.20-5.40) L 10/06/20 04:23 Hgb 8.7 g/dL (12.0-16.0) L 10/06/20 04:23 Hct 29.7 % (37.0-47.0) L 10/06/20 04:23 MCV 89.2 fL (81.0-99.0) 10/06/20 04:23 MCH 26.1 pg (27.0-31.0) L 10/06/20 04:23 MCHC 29.3 g/dL (32.0-36.0) L 10/06/20 04:23 RDW 15.1 % (12.0-15.0) H 10/06/20 04:23 Plt Count 257 10^3/uL (130-450) 10/06/20 04:23 MPV 9.4 fL (7.9-10.8) 10/06/20 04:23 Neut # (Auto) 4.7 10^3/uL (1.5-6.6) 10/06/20 04:23 Lymph # (Auto) 1.3 10^3/uL (1.5-3.5) L 10/06/20 04:23 [place] # (Auto) 0.6 10^3/uL (0.0-1.0) 10/06/20 04:23 Eos # (Auto) 0.1 10^3/uL (0.0-0.7) 10/06/20 04:23 Baso # (Auto) 0.1 10^3/uL (0.0-0.1) 10/06/20 04:23 Absolute Nucleated RBC 0.00 x10^3/uL 10/06/20 04:23 Nucleated RBC % 0.0 /100WBC 10/06/20 04:23 Sodium 135 mmol/L (135-145) 10/06/20 04:23 Potassium 3.8 mmol/L (3.5-5.0) 10/06/20 04:23 Chloride 103 mmol/L (101-111) 10/06/20 04:23 Carbon Dioxide 24 mmol/L (21-32) 10/06/20 04:23 Anion Gap 8.0 (6-13) 10/06/20 04:23 BUN 13 mg/dL (6-20) 10/06/20 04:23 Creatinine 1.0 mg/dL (0.4-1.0) 10/06/20 04:23 Estimated GFR (MDRD) 56 (>89) L 10/06/20 04:23 Glucose 101 mg/dL (70-100) H 10/06/20 04:23 Calcium 7.5 mg/dL (8.5-10.3) L 10/06/20 04:23 Phosphorus 2.7 mg/dL (2.5-4.6) 10/03/20 12:39 Magnesium 2.5 mg/dL (1.7-2.8) 10/03/20 12:39 Total Bilirubin 1.4 mg/dL (0.2-1.0) H 10/03/20 12:39 AST 19 IU/L (10-42) 10/03/20 12:39 ALT < 10 IU/L (10-60) L 10/03/20 12:39 Alkaline Phosphatase 51 IU/L (42-121) 10/03/20 12:39 Total Protein 7.1 g/dL (6.7-8.2) 10/03/20 12:39 Albumin 3.5 g/dL (3.2-5.5) 10/03/20 12:39 Globulin 3.6 g/dL (2.1-4.2) 10/03/20 12:39 Albumin/Globulin Ratio 1.0 (1.0-2.2) 10/03/20 12:39 Lipase 48 U/L (22-51) 10/03/20 12:39 Tumor Marker AFP 1.2 ng/mL 10/04/20 04:49 Carcinoembryonic Ag 1.5 ng/mL 10/04/20 04:49 CA 125 Antigen 938.7 U/mL (0.0-35.0) H 10/04/20 04:49 Urine Color YELLOW 10/03/20 16:37 Urine Clarity HAZY (CLEAR) 10/03/20 16:37 Urine pH 6.0 PH (5.0-7.5) 10/03/20 16:37 Ur Specific [place] 1.015 (1.002-1.030) 10/03/20 16:37 Urine Protein TRACE mg/dL (NEGATIVE) 10/03/20 16:37 Urine Glucose (UA) NEGATIVE mg/dL (NEGATIVE) 10/03/20 16:37 Urine Ketones 15 mg/dL (NEGATIVE) H 10/03/20 16:37 Urine Occult Blood TRACE-INTA (NEGATIVE) 10/03/20 16:37 Urine Nitrite POSITIVE (NEGATIVE) H 10/03/20 16:37 Urine Bilirubin NEGATIVE (NEGATIVE) 10/03/20 16:37 Urine Urobilinogen 2 E.U./dL (NORMAL) H 10/03/20 16:37 Ur Leukocyte Esterase LARGE (NEGATIVE) H 10/03/20 16:37 Urine RBC 0-5 /HPF (0-5) 10/03/20 16:37 Urine WBC >25 /HPF (0-5) H 10/03/20 16:37 Ur Squamous Epith Cells NONE SEEN (<= Few) 10/03/20 16:37 Urine Bacteria Many /HPF (None Seen) H 10/03/20 16:37 Ur Microscopic Review INDICATED 10/03/20 16:37 Urine Culture Comments INDICATED 10/03/20 16:37 Nasal Adenovirus (PCR) NOT DETECTED 10/03/20 14:50 Nasal B. parapertussis DNA (PCR) NOT DETECTED 10/03/20 14:50 Nasal Coronavir 229E PCR NOT DETECTED 10/03/20 14:50 Nasal Coronavir HKU1 PCR NOT DETECTED 10/03/20 14:50 Nasal Coronavir NL63 PCR NOT DETECTED 10/03/20 14:50 Nasal Coronavir OC43 PCR NOT DETECTED 10/03/20 14:50 Nasal Enterovir/Rhinovir PCR NOT DETECTED 10/03/20 14:50 Nasal Influenza B PCR NOT DETECTED 10/03/20 14:50 Nasal Influenza A PCR NOT DETECTED 10/03/20 14:50 Nasal Parainfluen 1 PCR NOT DETECTED 10/03/20 14:50 Nasal Parainfluen 2 PCR NOT DETECTED 10/03/20 14:50 Nasal Parainfluen 3 PCR NOT DETECTED 10/03/20 14:50 Nasal Parainfluen 4 PCR NOT DETECTED 10/03/20 14:50 Nasal RSV (PCR) NOT DETECTED 10/03/20 14:50 Nasal B.pertussis DNA PCR NOT DETECTED 10/03/20 14:50 Nasal C.pneumoniae (PCR) NOT DETECTED 10/03/20 14:50 Jm Human Metapneumo PCR NOT DETECTED 10/03/20 14:50 Nasal M.pneumoniae (PCR) NOT DETECTED 10/03/20 14:50 Nasal SARS-CoV-2 (PCR) NOT DETECTED 10/03/20 14:50 Urine Opiates Screen NEGATIVE (NEGATIVE) 10/03/20 16:37 Ur Oxycodone Screen NEGATIVE (NEGATIVE) 10/03/20 16:37 Urine Methadone Screen NEGATIVE (NEGATIVE) 10/03/20 16:37 Ur Propoxyphene Screen NEGATIVE (NEGATIVE) 10/03/20 16:37 Ur Barbiturates Screen NEGATIVE (NEGATIVE) 10/03/20 16:37 Ur Tricyclics Screen NEGATIVE (NEGATIVE) 10/03/20 16:37 Ur Phencyclidine Scrn NEGATIVE (NEGATIVE) 10/03/20 16:37 Ur Amphetamine Screen NEGATIVE (NEGATIVE) 10/03/20 16:37 U Methamphetamines Scrn NEGATIVE (NEGATIVE) 10/03/20 16:37 U Benzodiazepines Scrn NEGATIVE (NEGATIVE) 10/03/20 16:37 Urine Cocaine Screen NEGATIVE (NEGATIVE) 10/03/20 16:37 U Cannabinoids Screen NEGATIVE (NEGATIVE) 10/03/20 16:37 ABX Reporting Has patient been on IV antibiotics over the past 48 hours?: No
[2020-10-07 09:34] LABS: BASOPHILS % (AUTO) 0.8 %; EOSINOPHILS % (AUTO) 17.5 %; HGB - HEMOGLOBIN 8.7 g/dL (12.0-16.0); LYMPHOCYTES % (AUTO) 18.1 %; MEAN CORPUSCULAR HEMOGLOBIN 26.1 pg (27.0-31.0); MEAN CORPUSCULAR HGB CONC 29.1 g/dL (32.0-36.0); MEAN CORPUSCULAR VOLUME 89.8 fL (81.0-99.0); MEAN PLATELET VOLUME 8.7 fL (7.9-10.8); MONOCYTES % (AUTO) 8.1 %; NEUTROPHILS % (AUTO) 54.4 %; PLT - PLATELET COUNT 226 10^3/uL (130-450); RED BLOOD COUNT 3.33 10^6/uL (4.20-5.40); RED CELL DISTRIBUTION WIDTH 15.4 % (12.0-15.0); WHITE BLOOD COUNT 6.4 x10^3/uL (4.8-10.8)
[2020-10-07 09:38] LABS: ABNORMAL LYMPHS % (MANUAL) 0 %; BAND NEUTROPHILS % (MANUAL) 0 %
--- NOTE | 2020-10-07 09:39 | XRAY Report ---
PROCEDURE: Abdomen 1 View X-Ray INDICATIONS: nausea, vomiting. ?obstruction TECHNIQUE: 1 view of the abdomen were acquired. COMPARISON: CT abdomen and pelvis 10/03/2020 FINDINGS: Surgical changes and devices: None. Bowel: No pneumoperitoneum. The bowel gas pattern is nonspecific with a paucity of small bowel gas. Contrast noted in the colon likely related to recent CT scan. Soft tissues: No masses; visualized solid organ contours appear normal in size. No suspicious abdom inal calcifications. Bones: No suspicious bony abnormalities. IMPRESSION: Nonspecific bowel gas pattern without definite obstruction. Reviewed by: Kaylin Saab MD, PhD on 10/07/2020 9:38 AM PST Approved by: Kaylin Saab MD, PhD on 10/07/2020 9:38 AM PST Station ID: [id number]
[2020-10-07 09:46] LABS: CALCIUM 7.9 mg/dL (8.5-10.3); CREATININE 0.9 mg/dL (0.4-1.0)
[2020-10-07 10:27] LABS: HEMOGLOBIN A1c% 5.6 % (4.27-6.07)
[2020-10-07 10:53] LABS: EOSINOPHILS # (MANUAL) 0.2 10^3/uL (0-0.7); LYMPHOCYTES # (MANUAL) 1.3 10^3/uL (1.5-3.5); LYMPHOCYTES % (MANUAL) 20 %; MONOCYTES # (MANUAL) 0.3 10^3/uL (0.0-1.0)
[2020-10-07 10:57] LABS: DIFFERENTIAL COMMENT MANUAL DIFFERENTIAL; PLATELET ESTIMATE, MANUAL NORMAL (130-450,000) (NORMAL); PLATELET MORPHOLOGY NORMAL APPEARANCE (NORMAL)
[2020-10-07] MEDS: FOLIC ACID 1 MG TABLET PO SCH (11:09)
[2020-10-07 11:58] LABS: ALBUMIN 2.3 g/dL (3.2-5.5); ALKALINE PHOSPHATASE 52 IU/L (42-121); ALT ALANINE AMINOTRANSFERASE < 10 IU/L (10-60); AST ASPARTATE AMINOTRANSFERASE 14 IU/L (10-42); BILIRUBIN,DIRECT 0.1 mg/dL (0.1-0.5); BILIRUBIN,TOTAL 0.4 mg/dL (0.2-1.0)
[2020-10-07] MEDS: METOCLOPRAMIDE 10 MG/2 ML VIAL IVP SCH ×2 (12:57→17:38)
[2020-10-07] MEDS: SODIUM CHLORIDE FLUSH 0.9% 10 ML SYRINGE IVP PRN (17:38)
[2020-10-07] MEDS: KETOROLAC 15 MG/ML VIAL IVP PRN (19:01)
[2020-10-07] MEDS: ZOLPIDEM 5 MG TABLET PO PRN (22:48)
[2020-10-08] MEDS: METOCLOPRAMIDE 10 MG/2 ML VIAL IVP SCH ×3 (01:50→06:50)
[2020-10-08] MEDS: SODIUM CHLORIDE FLUSH 0.9% 10 ML SYRINGE IVP SCH ×3 (01:52→17:12)
[2020-10-08 05:26] LABS: CALCIUM 7.5 mg/dL (8.5-10.3); CREATININE 0.9 mg/dL (0.4-1.0)
[2020-10-08 06:10] LABS: BASOPHILS % (AUTO) 0.7 %; EOSINOPHILS % (AUTO) 20.8 %; HGB - HEMOGLOBIN 8.2 g/dL (12.0-16.0); LYMPHOCYTES % (AUTO) 18.7 %; MEAN CORPUSCULAR HEMOGLOBIN 26.5 pg (27.0-31.0); MEAN CORPUSCULAR HGB CONC 29.6 g/dL (32.0-36.0); MEAN CORPUSCULAR VOLUME 89.4 fL (81.0-99.0); MEAN PLATELET VOLUME 8.7 fL (7.9-10.8); MONOCYTES % (AUTO) 8.9 %; NEUTROPHILS % (AUTO) 50.1 %; PLT - PLATELET COUNT 217 10^3/uL (130-450); RED CELL DISTRIBUTION WIDTH 15.5 % (12.0-15.0); WHITE BLOOD COUNT 6.1 x10^3/uL (4.8-10.8)
[2020-10-08 06:13] LABS: ABNORMAL LYMPHS % (MANUAL) 0 %; BAND NEUTROPHILS % (MANUAL) 0 %
[2020-10-08] MEDS: KETOROLAC 15 MG/ML VIAL IVP PRN ×3 (06:50→19:16)
[2020-10-08] MEDS: ONDANSETRON ODT 4 MG TABLET TL SCH ×3 (06:50→15:14)
[2020-10-08 07:08] LABS: EOSINOPHILS # (MANUAL) 0.1 10^3/uL (0-0.7); LYMPHOCYTES # (MANUAL) 1.1 10^3/uL (1.5-3.5); LYMPHOCYTES % (MANUAL) 18 %; MONOCYTES # (MANUAL) 0.5 10^3/uL (0.0-1.0)
[2020-10-08 07:09] LABS: DIFFERENTIAL COMMENT MANUAL DIFFERENTIAL; PLATELET ESTIMATE, MANUAL NORMAL (130-450,000) (NORMAL); PLATELET MORPHOLOGY NORMAL APPEARANCE (NORMAL)
[2020-10-08] MEDS: INSULIN ASPART 300 UNIT/3 ML PEN SUBQ SCH ×4 (07:43→20:56)
--- NOTE | 2020-10-08 08:43 | PROVIDER PROGRESS NOTE ---
Assessment/Plan - Problem List (1) Omental metastasis Assessment/Plan: Gynecological oncology referral made with Dr. Kamila Mcwilliams in [place] [facility] [place]. She will be seen by palliative care in the outpatient setting Will consider requesting palliative consult for inpatient setting if patient is unable to be discharged by Saturday due to nausea vomiting. (2) Nausea & vomiting Qualifiers: Vomiting type: unspecified Vomiting Intractability: intractable Qualified Code(s): R11.2 - Nausea with vomiting, unspecified Assessment/Plan: Nausea and vomiting persist. Patient had 3 episodes of vomiting this morning. Reglan IV as needed was added to yesterday Zofran for nausea. Abdominal yesterday x-ray did not show any obstruction. Patient is N.p.o. for now. We will continue IV hydration with D5 + normal saline +20 mEq of potassium at 100 mils per hour. (3) Acute kidney injury Assessment/Plan: Resolved. Patient's creatinine today was 0.9 with an estimated GFR of 64. (4) Dehydration Assessment/Plan: Resolved. Will maintain patient on IV hydration with D5 normal saline +20 mEq of potassium at 100 mils per hour while patient is n.p.o. due to nausea and vomiting. 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 (6) UTI (urinary tract infection) Assessment/Plan: Patient had a urine analysis on subsequent urine culture done on 10/03/2020 which grew E. coli. She had abd pain, n/v upon presentation. 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 The patient has been persistently nauseous and vomiting. She reports generally feeling sick however is not able to give specifics to her discomfort. Over the past few days her urine output has become steadily darker and redder despite improved estimated GFR of 64 and creatinine of 0.9. As a result the decision is made to empirically treat for a suspected UTI. We will start the patient on Rocephin 1 g IV every 24 hours. - Current Meds Current Meds: Current Medications Generic Name Dose Route Start Last Admin Trade Name Freq PRN Reason Stop Dose Admin Acetaminophen 650 mg 10/06/20 16:05 10/07/20 03:51 Acetaminophen 325 Mg Tablet PO 650 mg Q4HR PRN Administration Pain or Fever > 38C (100.4F) Folic Acid 1 mg 10/07/20 09:00 10/07/20 11:09 Folic Acid 1 Mg Tablet PO 1 mg DAILY LEXIE Administration Potassium Chloride/Dextrose/Sod Cl 1,000 mls @ 100 mls/hr 10/04/20 09:00 10/07/20 22:21 IV 100 mls/hr .Q10H LEXIE Administration Insulin Aspart 1 - 5 unit 10/05/20 08:00 10/08/20 07:43 Insulin Aspart 300 Unit/3 Ml Pen SUBQ Not Given 0800,1200,1700,2100 [facility] Protocol Ketorolac Tromethamine 15 mg 10/07/20 18:44 10/08/20 06:50 Ketorolac 15 Mg/Ml Vial IVP 10/12/20 18:43 15 mg Q6HR PRN Administration PAIN Ondansetron HCl 4 mg 10/03/20 14:46 10/06/20 12:06 Ondansetron 4 Mg/2 Ml Vial IVP 4 mg Q6HR PRN Administration Nausea / Vomiting Ondansetron HCl 4 mg 10/07/20 07:00 10/08/20 06:50 Ondansetron Odt 4 Mg Tablet TL 4 mg AC LEXIE Administration Prochlorperazine Edisylate 10 mg 10/03/20 14:46 10/05/20 19:25 Prochlorperazine 10 Mg/2 Ml Vial IVP 10 mg Q6HR PRN Administration Nausea / Vomiting Sodium Chloride 10 ml 10/03/20 14:46 10/07/20 17:38 Sodium Chloride Flush 0.9% 10 Ml Syringe IVP 10 ml PRN PRN Administration NEEDED PER PROVIDER ORDERS Sodium Chloride 10 ml 10/03/20 17:00 10/08/20 01:52 Sodium Chloride Flush 0.9% 10 Ml Syringe IVP Not Given 0100,0900,1700 [facility] Throat Lozenges 1 lozenge 10/05/20 05:49 10/05/20 06:02 Benzocaine/Menthol Lozenge MM 1 lozenge Q2HR PRN Administration Throat pain Zolpidem Tartrate 5 mg 10/03/20 21:49 10/07/20 22:48 Zolpidem 5 Mg Tablet PO 5 mg QPM PRN Administration Insomnia - Lab Result Fish Bone Diagrams: 10/08/20 06:02 10/08/20 04:12 - Additional Planning My Orders: My Active Orders 10/07/20 09:00 Folic Acid 1 mg PO DAILY 10/07/20 Lunch Clear Liquid Diet [DIET] 10/07/20 18:44 Ketorolac Inj (15Mg) [Toradol Inj (15Mg)] 15 mg IVP Q6HR PRN 10/09/20 05:00 BMP - BASIC METABOLIC PANEL [CHEM] DAILYLAB CBC - COMP BLD CT W/AUTO DIFF [HEME] DAILYLAB 10/10/20 05:00 BMP - BASIC METABOLIC PANEL [CHEM] DAILYLAB CBC - COMP BLD CT W/AUTO DIFF [HEME] DAILYLAB 10/11/20 05:00 BMP - BASIC METABOLIC PANEL [CHEM] DAILYLAB CBC - COMP BLD CT W/AUTO DIFF [HEME] DAILYLAB Subjective - Subjective Patient Reports: Other (There was no change in the patient's clinical condition today. She continues to vomit anytime she attempts to ingest something and sometimes without any inducing factor. She also continues to have mild abdominal pain.) Objective Vital Signs: Vital Signs - 24 hr 10/07/20 10/08/20 10/08/20 16:00 00:00 07:38 Temperature 36.8 C 36.7 C 36.8 C Heart Rate [ 87 88 85 Brachial] Respiratory 18 16 20 Rate Blood Pressure 133/72 H 131/78 H 123/84 H [Right Brachial artery] O2 Saturation 97 99 96 Oxygen O2 Source Room air I&O (Last 24 Hrs): Intake and Output Totals x24h 10/06/20 10/07/20 10/08/20 23:59 23:59 23:59 Intake Total 3393.333 2110 Output Total 77 715 100 Balance 3316.333 1395 -100 General: Alert, Oriented x3, Mild distress, Moderate distress HEENT: Atraumatic, PERRLA, EOMI Neck: Supple, No JVD Neuro: Alert, Oriented Times 3 Cardiovascular: Regular rate Abdomen: Soft, Other (Mild abdominal tenderness. Patient vomiting.) Extremities: No clubbing, No cyanosis, No edema Skin: No rashes (Patient appears pale.) - Results Results: Laboratory Results WBC 6.1 x10^3/uL (4.8-10.8) 10/08/20 06:02 RBC 3.10 10^6/uL (4.20-5.40) L 10/08/20 06:02 Hgb 8.2 g/dL (12.0-16.0) L 10/08/20 06:02 Hct 27.7 % (37.0-47.0) L 10/08/20 06:02 MCV 89.4 fL (81.0-99.0) 10/08/20 06:02 MCH 26.5 pg (27.0-31.0) L 10/08/20 06:02 MCHC 29.6 g/dL (32.0-36.0) L 10/08/20 06:02 RDW 15.5 % (12.0-15.0) H 10/08/20 06:02 Plt Count 217 10^3/uL (130-450) 10/08/20 06:02 MPV 8.7 fL (7.9-10.8) 10/08/20 06:02 Neut # (Auto) Not Reportable 10/08/20 06:02 Lymph # (Auto) Not Reportable 10/08/20 06:02 [place] # (Auto) Not Reportable 10/08/20 06:02 Eos # (Auto) Not Reportable 10/08/20 06:02 Baso # (Auto) Not Reportable 10/08/20 06:02 Absolute Nucleated RBC Not Reportable 10/08/20 06:02 Total Counted 100 10/08/20 06:02 Band Neuts % (Manual) 0 % (0-10) 10/08/20 06:02 Abnorm Lymph % (Manual) 0 % 10/08/20 06:02 Nucleated RBC % Not Reportable 10/08/20 06:02 Neutrophils # (Manual) 4.5 10^3/uL (1.5-6.6) 10/08/20 06:02 Lymphocytes # (Manual) 1.1 10^3/uL (1.5-3.5) L 10/08/20 06:02 Monocytes # (Manual) 0.5 10^3/uL (0.0-1.0) 10/08/20 06:02 Eosinophils # (Manual) 0.1 10^3/uL (0-0.7) 10/08/20 06:02 Basophils # (Manual) 0.0 10^3/uL (0-0.1) 10/08/20 06:02 Differential Comment MANUAL DIFFERENTIAL 10/08/20 06:02 WBC Morphology NORMAL APPEARANCE (NORMAL) 10/08/20 06:02 Platelet Estimate NORMAL (130-450,000) (NORMAL) 10/08/20 06:02 Platelet Morphology NORMAL APPEARANCE (NORMAL) 10/08/20 06:02 RBC Morph Micro Appear 2+ ACANTHOCYTES (NORMAL) 1+ OVALOCYTES (NORMAL) 10/08/20 06:02 RBC Morph Micro Appear 2+ ACANTHOCYTES (NORMAL) 1+ OVALOCYTES (NORMAL) 10/08/20 06:02 Sodium 137 mmol/L (135-145) 10/08/20 04:12 Potassium 4.9 mmol/L (3.5-5.0) 10/08/20 04:12 Chloride 112 mmol/L (101-111) H 10/08/20 04:12 Carbon Dioxide 19 mmol/L (21-32) L 10/08/20 04:12 Anion Gap 6.0 (6-13) 10/08/20 04:12 BUN 10 mg/dL (6-20) 10/08/20 04:12 Creatinine 0.9 mg/dL (0.4-1.0) 10/08/20 04:12 Estimated GFR (MDRD) 64 (>89) L 10/08/20 04:12 Glucose 100 mg/dL (70-100) 10/08/20 04:12 Estimat Average Glucose 114 mg/dL (70-100) H 10/07/20 09:31 Hemoglobin A1c % 5.6 % (4.27-6.07) 10/07/20 09:31 Calcium 7.5 mg/dL (8.5-10.3) L 10/08/20 04:12 Phosphorus 2.7 mg/dL (2.5-4.6) 10/03/20 12:39 Magnesium 2.5 mg/dL (1.7-2.8) 10/03/20 12:39 Total Bilirubin 0.4 mg/dL (0.2-1.0) 10/07/20 08:45 Direct Bilirubin 0.1 mg/dL (0.1-0.5) 10/07/20 08:45 AST 14 IU/L (10-42) 10/07/20 08:45 ALT < 10 IU/L (10-60) L 10/07/20 08:45 Alkaline Phosphatase 52 IU/L (42-121) 10/07/20 08:45 Total Protein 5.0 g/dL (6.7-8.2) L 10/07/20 08:45 Albumin 2.3 g/dL (3.2-5.5) L 10/07/20 08:45 Globulin 2.7 g/dL (2.1-4.2) 10/07/20 08:45 Albumin/Globulin Ratio 1.0 (1.0-2.2) 10/03/20 12:39 Lipase 48 U/L (22-51) 10/03/20 12:39 Tumor Marker AFP 1.2 ng/mL 10/04/20 04:49 Carcinoembryonic Ag 1.5 ng/mL 10/04/20 04:49 CA 125 Antigen 938.7 U/mL (0.0-35.0) H 10/04/20 04:49 Urine Color YELLOW 10/03/20 16:37 Urine Clarity HAZY (CLEAR) 10/03/20 16:37 Urine pH 6.0 PH (5.0-7.5) 10/03/20 16:37 Ur Specific [place] 1.015 (1.002-1.030) 10/03/20 16:37 Urine Protein TRACE mg/dL (NEGATIVE) 10/03/20 16:37 Urine Glucose (UA) NEGATIVE mg/dL (NEGATIVE) 10/03/20 16:37 Urine Ketones 15 mg/dL (NEGATIVE) H 10/03/20 16:37 Urine Occult Blood TRACE-INTA (NEGATIVE) 10/03/20 16:37 Urine Nitrite POSITIVE (NEGATIVE) H 10/03/20 16:37 Urine Bilirubin NEGATIVE (NEGATIVE) 10/03/20 16:37 Urine Urobilinogen 2 E.U./dL (NORMAL) H 10/03/20 16:37 Ur Leukocyte Esterase LARGE (NEGATIVE) H 10/03/20 16:37 Urine RBC 0-5 /HPF (0-5) 10/03/20 16:37 Urine WBC >25 /HPF (0-5) H 10/03/20 16:37 Ur Squamous Epith Cells NONE SEEN (<= Few) 10/03/20 16:37 Urine Bacteria Many /HPF (None Seen) H 10/03/20 16:37 Ur Microscopic Review INDICATED 10/03/20 16:37 Urine Culture Comments INDICATED 10/03/20 16:37 Nasal Adenovirus (PCR) NOT DETECTED 10/03/20 14:50 Nasal B. parapertussis DNA (PCR) NOT DETECTED 10/03/20 14:50 Nasal Coronavir 229E PCR NOT DETECTED 10/03/20 14:50 Nasal Coronavir HKU1 PCR NOT DETECTED 10/03/20 14:50 Nasal Coronavir NL63 PCR NOT DETECTED 10/03/20 14:50 Nasal Coronavir OC43 PCR NOT DETECTED 10/03/20 14:50 Nasal Enterovir/Rhinovir PCR NOT DETECTED 10/03/20 14:50 Nasal Influenza B PCR NOT DETECTED 10/03/20 14:50 Nasal Influenza A PCR NOT DETECTED 10/03/20 14:50 Nasal Parainfluen 1 PCR NOT DETECTED 10/03/20 14:50 Nasal Parainfluen 2 PCR NOT DETECTED 10/03/20 14:50 Nasal Parainfluen 3 PCR NOT DETECTED 10/03/20 14:50 Nasal Parainfluen 4 PCR NOT DETECTED 10/03/20 14:50 Nasal RSV (PCR) NOT DETECTED 10/03/20 14:50 Nasal B.pertussis DNA PCR NOT DETECTED 10/03/20 14:50 Nasal C.pneumoniae (PCR) NOT DETECTED 10/03/20 14:50 Jm Human Metapneumo PCR NOT DETECTED 10/03/20 14:50 Nasal M.pneumoniae (PCR) NOT DETECTED 10/03/20 14:50 Nasal SARS-CoV-2 (PCR) NOT DETECTED 10/03/20 14:50 Urine Opiates Screen NEGATIVE (NEGATIVE) 10/03/20 16:37 Ur Oxycodone Screen NEGATIVE (NEGATIVE) 10/03/20 16:37 Urine Methadone Screen NEGATIVE (NEGATIVE) 10/03/20 16:37 Ur Propoxyphene Screen NEGATIVE (NEGATIVE) 10/03/20 16:37 Ur Barbiturates Screen NEGATIVE (NEGATIVE) 10/03/20 16:37 Ur Tricyclics Screen NEGATIVE (NEGATIVE) 10/03/20 16:37 Ur Phencyclidine Scrn NEGATIVE (NEGATIVE) 10/03/20 16:37 Ur Amphetamine Screen NEGATIVE (NEGATIVE) 10/03/20 16:37 U Methamphetamines Scrn NEGATIVE (NEGATIVE) 10/03/20 16:37 U Benzodiazepines Scrn NEGATIVE (NEGATIVE) 10/03/20 16:37 Urine Cocaine Screen NEGATIVE (NEGATIVE) 10/03/20 16:37 U Cannabinoids Screen NEGATIVE (NEGATIVE) 10/03/20 16:37 ABX Reporting Has patient been on IV antibiotics over the past 48 hours?: No
[2020-10-08] MEDS: D5NS W/20 MEQ KCL 1,000 ML IV SCH ×2 (09:27→18:23)
[2020-10-08] MEDS: FOLIC ACID 1 MG TABLET PO SCH (09:28)
[2020-10-08] MEDS: ONDANSETRON 4 MG/2 ML VIAL IVP PRN ×2 (13:27→19:16)
[2020-10-08] MEDS: ZOLPIDEM 5 MG TABLET PO PRN (20:23)
[2020-10-09] MEDS: SODIUM CHLORIDE FLUSH 0.9% 10 ML SYRINGE IVP SCH ×3 (01:28→17:17)
[2020-10-09] MEDS: D5NS W/20 MEQ KCL 1,000 ML IV SCH ×2 (04:18→13:40)
[2020-10-09] MEDS: KETOROLAC 15 MG/ML VIAL IVP PRN ×3 (04:18→17:16)
[2020-10-09] MEDS: ONDANSETRON 4 MG/2 ML VIAL IVP PRN ×2 (04:18→17:16)
[2020-10-09 05:32] LABS: BASOPHILS # (AUTO) 0.1 10^3/uL (0.0-0.1); BASOPHILS % (AUTO) 0.8 %; EOSINOPHILS # (AUTO) 0.1 10^3/uL (0.0-0.7); EOSINOPHILS % (AUTO) 1.4 %; HGB - HEMOGLOBIN 8.3 g/dL (12.0-16.0); LYMPHOCYTES # (AUTO) 1.1 10^3/uL (1.5-3.5); LYMPHOCYTES % (AUTO) 17.8 %; MEAN CORPUSCULAR HEMOGLOBIN 26.1 pg (27.0-31.0); MEAN CORPUSCULAR HGB CONC 28.5 g/dL (32.0-36.0); MEAN CORPUSCULAR VOLUME 91.5 fL (81.0-99.0); MEAN PLATELET VOLUME 9.2 fL (7.9-10.8); MONOCYTES # (AUTO) 0.6 10^3/uL (0.0-1.0); MONOCYTES % (AUTO) 9.3 %; NEUTROPHILS # (AUTO) 4.1 10^3/uL (1.5-6.6); NEUTROPHILS % (AUTO) 69.5 %; PLT - PLATELET COUNT 227 10^3/uL (130-450); RED BLOOD COUNT 3.18 10^6/uL (4.20-5.40); RED CELL DISTRIBUTION WIDTH 15.5 % (12.0-15.0); WHITE BLOOD COUNT 5.9 x10^3/uL (4.8-10.8)
[2020-10-09 05:44] LABS: CALCIUM 7.8 mg/dL (8.5-10.3); CREATININE 0.8 mg/dL (0.4-1.0)
[2020-10-09 06:31] LABS: PLATELET ESTIMATE, MANUAL NORMAL (130-450,000) (NORMAL); PLATELET MORPHOLOGY NORMAL APPEARANCE (NORMAL)
[2020-10-09] MEDS: ONDANSETRON ODT 4 MG TABLET TL SCH ×3 (07:01→15:12)
[2020-10-09] MEDS: INSULIN ASPART 300 UNIT/3 ML PEN SUBQ SCH ×4 (07:41→20:49)
[2020-10-09] MEDS: FOLIC ACID 1 MG TABLET PO SCH (09:06)
--- NOTE | 2020-10-09 11:57 | PROVIDER PROGRESS NOTE ---
Assessment/Plan - Problem List (1) Omental metastasis Assessment/Plan: Gynecological oncology referral made with Dr. Kamila Mcwilliams in [place] Patient would [place] [facility] [place]. She will be seen by palliative care in the outpatient setting Will consider requesting palliative consult for inpatient setting if patient is unable to be discharged by Saturday due to nausea vomiting. (2) Nausea & vomiting Qualifiers: Vomiting type: unspecified Vomiting Intractability: intractable Qualified Code(s): R11.2 - Nausea with vomiting, unspecified Assessment/Plan: Nausea and vomiting persists. Patient had 3 episodes of vomiting this morning. Reglan and Phenergan IV as needed was added to yesterday Zofran for nausea. Abdominal yesterday x-ray did not show any obstruction. Patient is N.p.o. for now. We will continue IV hydration with D5 + normal saline +20 mEq of potassium at 100 mils per hour. (3) Acute kidney injury Assessment/Plan: Resolved. Patient's creatinine today was 0.8 with an estimated GFR of 73. (4) Dehydration Assessment/Plan: Resolved. Will maintain patient on IV hydration with D5 normal saline +20 mEq of potassium at 100 mils per hour while patient is n.p.o. due to nausea and vomiting. 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 (6) UTI (urinary tract infection) Assessment/Plan: Assessment/Plan: Patient had a urine analysis on subsequent urine culture done on 10/03/2020 which grew E. coli. She had abd pain, n/v upon presentation. 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 The patient has been persistently nauseous and vomiting. She reports generally feeling sick however is not able to give specifics to her discomfort. Over the past few days her urine output has become steadily darker and redder despite improved estimated GFR of 64 and creatinine of 0.9. As a result the decision is made to empirically treat for a suspected UTI. We will start the patient on Rocephin 1 g IV every 24 hours. - Current Meds Current Meds: Current Medications Generic Name Dose Route Start Last Admin Trade Name Freq PRN Reason Stop Dose Admin Acetaminophen 650 mg 10/06/20 16:05 10/07/20 03:51 Acetaminophen 325 Mg Tablet PO 650 mg Q4HR PRN Administration Pain or Fever > 38C (100.4F) Folic Acid 1 mg 10/07/20 09:00 10/09/20 09:06 Folic Acid 1 Mg Tablet PO Not Given DAILY LEXIE Potassium Chloride/Dextrose/Sod Cl 1,000 mls @ 100 mls/hr 10/04/20 09:00 04:18 IV 100 mls/hr .Q10H LEXIE Administration Insulin Aspart 1 - 5 unit 10/05/20 08:00 10/09/20 11:30 Insulin Aspart 300 Unit/3 Ml Pen SUBQ Not Given 0800,1200,1700,2100 [facility] Protocol Ketorolac Tromethamine 15 mg 10/07/20 18:44 10/09/20 11:34 Ketorolac 15 Mg/Ml Vial IVP 10/12/20 18:43 15 mg Q6HR PRN Administration PAIN Ondansetron HCl 4 mg 10/03/20 14:46 10/09/20 04:18 Ondansetron 4 Mg/2 Ml Vial IVP 4 mg Q6HR PRN Administration Nausea / Vomiting Ondansetron HCl 4 mg 10/07/20 07:00 10/09/20 11:34 Ondansetron Odt 4 Mg Tablet TL 4 mg AC LEXIE Administration Prochlorperazine Edisylate 10 mg 10/03/20 14:46 10/05/20 19:25 Prochlorperazine 10 Mg/2 Ml Vial IVP 10 mg Q6HR PRN Administration Nausea / Vomiting Sodium Chloride 10 ml 10/03/20 14:46 10/07/20 17:38 Sodium Chloride Flush 0.9% 10 Ml Syringe IVP 10 ml PRN PRN Administration NEEDED PER PROVIDER ORDERS Sodium Chloride 10 ml 10/03/20 17:00 10/09/20 07:42 Sodium Chloride Flush 0.9% 10 Ml Syringe IVP Not Given 0100,0900,1700 LEXIE Throat Lozenges 1 lozenge 10/05/20 05:49 10/05/20 06:02 Benzocaine/Menthol Lozenge MM 1 lozenge Q2HR PRN Administration Throat pain Zolpidem Tartrate 5 mg 10/03/20 21:49 10/08/20 20:23 Zolpidem 5 Mg Tablet PO 5 mg QPM PRN Administration Insomnia - Lab Result Fish Bone Diagrams: 10/10/20 05:33 10/10/20 05:33 - Additional Planning My Orders: My Active Orders 10/10/20 05:00 BMP - BASIC METABOLIC PANEL [CHEM] DAILYLAB CBC - COMP BLD CT W/AUTO DIFF [HEME] DAILYLAB 10/11/20 05:00 BMP - BASIC METABOLIC PANEL [CHEM] DAILYLAB CBC - COMP BLD CT W/AUTO DIFF [HEME] DAILYLAB Subjective - Subjective Patient Reports: Other (There was no change in the patient's clinical condition today. She continues to vomit anytime she attempts to ingest something and sometimes without any inducing factor. She also continues to have mild abdominal pain. Patient has been bedbound for at least 6 days.) Objective Vital Signs: Vital Signs - 24 hr 10/08/20 10/09/20 10/09/20 15:56 00:00 08:00 Temperature 36.7 C 36.8 C 36.8 C Heart Rate [ 91 87 90 Brachial] Respiratory 18 16 14 Rate Blood Pressure 136/85 H 126/72 131/75 H [Right Brachial artery] O2 Saturation 97 95 99 Oxygen O2 Source Room air I&O (Last 24 Hrs): Intake and Output Totals x24h 10/07/20 10/08/20 10/09/20 23:59 23:59 23:59 Intake Total 2110 2313.333 991.667 Output Total 715 400 200 Balance 1395 1913.333 791.667 Comments/Notes: General: Alert, Oriented x3, Mild distress, Moderate distress HEENT: Atraumatic, PERRLA, EOMI Neck: Supple, No JVD Neuro: Alert, Oriented Times 3 Cardiovascular: Regular rate Abdomen: Soft, Other (Mild abdominal tenderness. Patient vomiting.) Extremities: No clubbing, No cyanosis, No edema Skin: No rashes (Patient appears pale.) - Results Results: Laboratory Results WBC 5.9 x10^3/uL (4.8-10.8) 10/09/20 04:17 RBC 3.18 10^6/uL (4.20-5.40) L 10/09/20 04:17 Hgb 8.3 g/dL (12.0-16.0) L 10/09/20 04:17 Hct 29.1 % (37.0-47.0) L 10/09/20 04:17 MCV 91.5 fL (81.0-99.0) 10/09/20 04:17 MCH 26.1 pg (27.0-31.0) L 10/09/20 04:17 MCHC 28.5 g/dL (32.0-36.0) L 10/09/20 04:17 RDW 15.5 % (12.0-15.0) H 10/09/20 04:17 Plt Count 227 10^3/uL (130-450) 10/09/20 04:17 MPV 9.2 fL (7.9-10.8) 10/09/20 04:17 Neut # (Auto) 4.1 10^3/uL (1.5-6.6) 10/09/20 04:17 Lymph # (Auto) 1.1 10^3/uL (1.5-3.5) L 10/09/20 04:17 [place] # (Auto) 0.6 10^3/uL (0.0-1.0) 10/09/20 04:17 Eos # (Auto) 0.1 10^3/uL (0.0-0.7) 10/09/20 04:17 Baso # (Auto) 0.1 10^3/uL (0.0-0.1) 10/09/20 04:17 Absolute Nucleated RBC 0.00 x10^3/uL 10/09/20 04:17 Total Counted 100 10/08/20 06:02 Band Neuts % (Manual) 0 % (0-10) 10/08/20 06:02 Abnorm Lymph % (Manual) 0 % 10/08/20 06:02 Nucleated RBC % 0.0 /100WBC 10/09/20 04:17 Neutrophils # (Manual) 4.5 10^3/uL (1.5-6.6) 10/08/20 06:02 Lymphocytes # (Manual) 1.1 10^3/uL (1.5-3.5) L 10/08/20 06:02 Monocytes # (Manual) 0.5 10^3/uL (0.0-1.0) 10/08/20 06:02 Eosinophils # (Manual) 0.1 10^3/uL (0-0.7) 10/08/20 06:02 Basophils # (Manual) 0.0 10^3/uL (0-0.1) 10/08/20 06:02 Differential Comment MANUAL DIFFERENTIAL 10/08/20 06:02 Manual Slide Review Indicated 10/09/20 04:17 WBC Morphology NORMAL APPEARANCE (NORMAL) 10/09/20 04:17 Platelet Estimate NORMAL (130-450,000) (NORMAL) 10/09/20 04:17 Platelet Morphology NORMAL APPEARANCE (NORMAL) 10/09/20 04:17 RBC Morph Micro Appear 1+ HYPOCHROMASIA (NORMAL) 2+ SABIHA CELLS (NORMAL) 1+ OV ALOCYTES (NORMAL) 10/09/20 04:17 RBC Morph Micro Appear 1+ HYPOCHROMASIA (NORMAL) 2+ SABIHA CELLS (NORMAL) 1+ OVALOCYTES (NORMAL) 10/09/20 04:17 RBC Morph Micro Appear 1+ HYPOCHROMASIA (NORMAL) 2+ SABIHA CELLS (NORMAL) 1+ OVALOCYTES (NORMAL) 10/09/20 04:17 Sodium 141 mmol/L (135-145) 10/09/20 04:17 Potassium 5.0 mmol/L (3.5-5.0) 10/09/20 04:17 Chloride 114 mmol/L (101-111) H 10/09/20 04:17 Carbon Dioxide 19 mmol/L (21-32) L 10/09/20 04:17 Anion Gap 8.0 (6-13) 10/09/20 04:17 BUN 9 mg/dL (6-20) 10/09/20 04:17 Creatinine 0.8 mg/dL (0.4-1.0) 10/09/20 04:17 Estimated GFR (MDRD) 73 (>89) L 10/09/20 04:17 Glucose 98 mg/dL (70-100) 10/09/20 04:17 Estimat Average Glucose 114 mg/dL (70-100) H 10/07/20 09:31 Hemoglobin A1c % 5.6 % (4.27-6.07) 10/07/20 09:31 Calcium 7.8 mg/dL (8.5-10.3) L 10/09/20 04:17 Phosphorus 2.7 mg/dL (2.5-4.6) 10/03/20 12:39 Magnesium 2.5 mg/dL (1.7-2.8) 10/03/20 12:39 Total Bilirubin 0.4 mg/dL (0.2-1.0) 10/07/20 08:45 Direct Bilirubin 0.1 mg/dL (0.1-0.5) 10/07/20 08:45 AST 14 IU/L (10-42) 10/07/20 08:45 ALT < 10 IU/L (10-60) L 10/07/20 08:45 Alkaline Phosphatase 52 IU/L (42-121) 10/07/20 08:45 Total Protein 5.0 g/dL (6.7-8.2) L 10/07/20 08:45 Albumin 2.3 g/dL (3.2-5.5) L 10/07/20 08:45 Globulin 2.7 g/dL (2.1-4.2) 10/07/20 08:45 Albumin/Globulin Ratio 1.0 (1.0-2.2) 10/03/20 12:39 Lipase 48 U/L (22-51) 10/03/20 12:39 Tumor Marker AFP 1.2 ng/mL 10/04/20 04:49 Carcinoembryonic Ag 1.5 ng/mL 10/04/20 04:49 CA 125 Antigen 938.7 U/mL (0.0-35.0) H 10/04/20 04:49 Urine Color YELLOW 10/03/20 16:37 Urine Clarity HAZY (CLEAR) 10/03/20 16:37 Urine pH 6.0 PH (5.0-7.5) 10/03/20 16:37 Ur Specific [place] 1.015 (1.002-1.030) 10/03/20 16:37 Urine Protein TRACE mg/dL (NEGATIVE) 10/03/20 16:37 Urine Glucose (UA) NEGATIVE mg/dL (NEGATIVE) 10/03/20 16:37 Urine Ketones 15 mg/dL (NEGATIVE) H 10/03/20 16:37 Urine Occult Blood TRACE-INTA (NEGATIVE) 10/03/20 16:37 Urine Nitrite POSITIVE (NEGATIVE) H 10/03/20 16:37 Urine Bilirubin NEGATIVE (NEGATIVE) 10/03/20 16:37 Urine Urobilinogen 2 E.U./dL (NORMAL) H 10/03/20 16:37 Ur Leukocyte Esterase LARGE (NEGATIVE) H 10/03/20 16:37 Urine RBC 0-5 /HPF (0-5) 10/03/20 16:37 Urine WBC >25 /HPF (0-5) H 10/03/20 16:37 Ur Squamous Epith Cells NONE SEEN (<= Few) 10/03/20 16:37 Urine Bacteria Many /HPF (None Seen) H 10/03/20 16:37 Ur Microscopic Review INDICATED 10/03/20 16:37 Urine Culture Comments INDICATED 10/03/20 16:37 Nasal Adenovirus (PCR) NOT DETECTED 10/03/20 14:50 Nasal B. parapertussis DNA (PCR) NOT DETECTED 10/03/20 14:50 Nasal Coronavir 229E PCR NOT DETECTED 10/03/20 14:50 Nasal Coronavir HKU1 PCR NOT DETECTED 10/03/20 14:50 Nasal Coronavir NL63 PCR NOT DETECTED 10/03/20 14:50 Nasal Coronavir OC43 PCR NOT DETECTED 10/03/20 14:50 Nasal Enterovir/Rhinovir PCR NOT DETECTED 10/03/20 14:50 Nasal Influenza B PCR NOT DETECTED 10/03/20 14:50 Nasal Influenza A PCR NOT DETECTED 10/03/20 14:50 Nasal Parainfluen 1 PCR NOT DETECTED 10/03/20 14:50 Nasal Parainfluen 2 PCR NOT DETECTED 10/03/20 14:50 Nasal Parainfluen 3 PCR NOT DETECTED 10/03/20 14:50 Nasal Parainfluen 4 PCR NOT DETECTED 10/03/20 14:50 Nasal RSV (PCR) NOT DETECTED 10/03/20 14:50 Nasal B.pertussis DNA PCR NOT DETECTED 10/03/20 14:50 Nasal C.pneumoniae (PCR) NOT DETECTED 10/03/20 14:50 Jm Human Metapneumo PCR NOT DETECTED 10/03/20 14:50 Nasal M.pneumoniae (PCR) NOT DETECTED 10/03/20 14:50 Nasal SARS-CoV-2 (PCR) NOT DETECTED 10/03/20 14:50 Urine Opiates Screen NEGATIVE (NEGATIVE) 10/03/20 16:37 Ur Oxycodone Screen NEGATIVE (NEGATIVE) 10/03/20 16:37 Urine Methadone Screen NEGATIVE (NEGATIVE) 10/03/20 16:37 Ur Propoxyphene Screen NEGATIVE (NEGATIVE) 10/03/20 16:37 Ur Barbiturates Screen NEGATIVE (NEGATIVE) 10/03/20 16:37 Ur Tricyclics Screen NEGATIVE (NEGATIVE) 10/03/20 16:37 Ur Phencyclidine Scrn NEGATIVE (NEGATIVE) 10/03/20 16:37 Ur Amphetamine Screen NEGATIVE (NEGATIVE) 10/03/20 16:37 U Methamphetamines Scrn NEGATIVE (NEGATIVE) 10/03/20 16:37 U Benzodiazepines Scrn NEGATIVE (NEGATIVE) 10/03/20 16:37 Urine Cocaine Screen NEGATIVE (NEGATIVE) 10/03/20 16:37 U Cannabinoids Screen NEGATIVE (NEGATIVE) 10/03/20 16:37
[2020-10-09] MEDS ORDERED: PROMETHAZINE INJ 25 MG in SODIUM CHLORIDE 0.9% 50 ML IV PRN (12:45)
[2020-10-09] MEDS ORDERED: LORazepam 2 MG/ML VIAL IVP PRN (12:46)
[2020-10-09] MEDS: cefTRIAXone 1 GM in SODIUM CHLORIDE 0.9% MINIBAG 100 ML IV SCH (13:40)
[2020-10-09] MEDS: ACETAMINOPHEN 325 MG TABLET PO PRN (15:11)
[2020-10-09] MEDS: ZOLPIDEM 5 MG TABLET PO PRN (20:14)
[2020-10-10] MEDS: SODIUM CHLORIDE FLUSH 0.9% 10 ML SYRINGE IVP SCH ×3 (00:09→14:40)
[2020-10-10] MEDS: D5NS W/20 MEQ KCL 1,000 ML IV SCH ×3 (00:09→11:31)
[2020-10-10] MEDS: PROCHLORPERAZINE 10 MG/2 ML VIAL IVP PRN ×3 (00:16→18:05)
[2020-10-10] MEDS: SODIUM CHLORIDE FLUSH 0.9% 10 ML SYRINGE IVP PRN (00:16)
[2020-10-10 05:46] LABS: BASOPHILS % (AUTO) 0.8 %; EOSINOPHILS # (AUTO) 0.1 10^3/uL (0.0-0.7); EOSINOPHILS % (AUTO) 1.9 %; HGB - HEMOGLOBIN 7.6 g/dL (12.0-16.0); LYMPHOCYTES % (AUTO) 19.7 %; MEAN CORPUSCULAR HEMOGLOBIN 26.2 pg (27.0-31.0); MEAN CORPUSCULAR HGB CONC 29.5 g/dL (32.0-36.0); MEAN PLATELET VOLUME 8.3 fL (7.9-10.8); MONOCYTES # (AUTO) 0.5 10^3/uL (0.0-1.0); MONOCYTES % (AUTO) 9.6 %; NEUTROPHILS # (AUTO) 3.5 10^3/uL (1.5-6.6); NEUTROPHILS % (AUTO) 66.7 %; PLT - PLATELET COUNT 195 10^3/uL (130-450); RED CELL DISTRIBUTION WIDTH 15.5 % (12.0-15.0); WHITE BLOOD COUNT 5.2 x10^3/uL (4.8-10.8)
[2020-10-10 05:51] LABS: CALCIUM 7.5 mg/dL (8.5-10.3); CREATININE 0.9 mg/dL (0.4-1.0)
[2020-10-10] MEDS: ONDANSETRON ODT 4 MG TABLET TL SCH ×3 (06:28→16:21)
[2020-10-10] MEDS: INSULIN ASPART 300 UNIT/3 ML PEN SUBQ SCH ×4 (08:22→21:20)
[2020-10-10] MEDS: cefTRIAXone 1 GM in SODIUM CHLORIDE 0.9% MINIBAG 100 ML IV SCH (09:00)
[2020-10-10] MEDS ORDERED: LIDOCAINE 2%-EPI 1:100000 20 ML MDV ONE (09:03)
[2020-10-10] MEDS ORDERED: BUPIVACAINE 0.5% PF 30 ML VIAL ONE (09:03)
[2020-10-10] MEDS: FOLIC ACID 1 MG TABLET PO SCH (09:03)
--- NOTE | 2020-10-10 11:25 | PROVIDER PROGRESS NOTE ---
Assessment/Plan - Problem List (2) Nausea & vomiting Qualifiers: Vomiting type: unspecified Vomiting Intractability: intractable Qualified Code(s): R11.2 - Nausea with vomiting, unspecified - Current Meds Current Meds: Current Medications Generic Name Dose Route Start Last Admin Trade Name Freq PRN Reason Stop Dose Admin Acetaminophen 650 mg 10/06/20 16:05 10/09/20 15:11 Acetaminophen 325 Mg Tablet PO 650 mg Q4HR PRN Administration Pain or Fever > 38C (100.4F) Folic Acid 1 mg 10/07/20 09:00 10/10/20 09:03 Folic Acid 1 Mg Tablet PO 1 mg DAILY LEXIE Administration Potassium Chloride/Dextrose/Sod Cl 1,000 mls @ 100 mls/hr 10/04/20 09:00 10/10/20 11:18 IV 100 mls/hr .Q10H LEXIE Administration Ceftriaxone Sodium 1 gm/ 100 mls @ 200 mls/hr 10/09/20 13:12 10/10/20 09:30 Sodium Chloride IV Infused DAILY LEXIE Infusion Insulin Aspart 1 - 5 unit 10/05/20 08:00 10/10/20 08:22 Insulin Aspart 300 Unit/3 Ml Pen SUBQ Not Given 0800,1200,1700,2100 [facility] Protocol Ketorolac Tromethamine 15 mg 10/07/20 18:44 10/09/20 17:16 Ketorolac 15 Mg/Ml Vial IVP 10/12/20 18:43 15 mg Q6HR PRN Administration PAIN Lorazepam 0.5 mg 10/09/20 12:46 10/10/20 00:16 Lorazepam 2 Mg/Ml Vial IVP 0.5 mg Q6H PRN Administration Nausea / Vomiting Ondansetron HCl 4 mg 10/03/20 14:46 10/09/20 17:16 Ondansetron 4 Mg/2 Ml Vial IVP 4 mg Q6HR PRN Administration Nausea / Vomiting Ondansetron HCl 4 mg 10/07/20 07:00 10/10/20 11:18 Ondansetron Odt 4 Mg Tablet TL 4 mg AC LEXIE Administration Prochlorperazine Edisylate 10 mg 10/03/20 14:46 10/10/20 11:21 Prochlorperazine 10 Mg/2 Ml Vial IVP 10 mg Q6HR PRN Administration Nausea / Vomiting Sodium Chloride 10 ml 10/03/20 14:46 10/10/20 00:16 Sodium Chloride Flush 0.9% 10 Ml Syringe IVP 10 ml PRN PRN Administration NEEDED PER PROVIDER ORDERS Sodium Chloride 10 ml 10/03/20 17:00 10/10/20 08:22 Sodium Chloride Flush 0.9% 10 Ml Syringe IVP Not Given 0100,0900,1700 LEXIE Throat Lozenges 1 lozenge 10/05/20 05:49 10/05/20 06:02 Benzocaine/Menthol Lozenge MM 1 lozenge Q2HR PRN Administration Throat pain Zolpidem Tartrate 5 mg 10/03/20 21:49 10/09/20 20:14 Zolpidem 5 Mg Tablet PO 5 mg QPM PRN Administration Insomnia - Lab Result Fish Bone Diagrams: 10/10/20 05:33 10/10/20 05:33 - Additional Planning My Orders: My Active Orders 10/09/20 12:45 Promethazine Inj [Phenergan Inj] 25 mg Sodium Chloride 0.9% [Normal Saline 0.9%] 50 ml IV Q6H 10/09/20 12:46 LORazepam INJ [Ativan Inj (Vial)] 0.5 mg IVP Q6H PRN 10/09/20 13:12 cefTRIAXone [Rocephin] 1 gm Sodium Chloride 0.9% Minibag [Normal Saline 0.9% Minibag] 100 ml IV DAILY 10/11/20 05:00 BMP - BASIC METABOLIC PANEL [CHEM] DAILYLAB CBC - COMP BLD CT W/AUTO DIFF [HEME] DAILYLAB Objective Vital Signs: Vital Signs - 24 hr 10/09/20 10/10/20 10/10/20 15:57 00:09 08:00 Temperature 36.8 C 36.6 C 36.8 C Heart Rate [ 92 96 95 Brachial] Respiratory 20 16 18 Rate Blood Pressure 145/81 H 147/88 H 136/83 H [Right Brachial artery] O2 Saturation 96 96 96 Oxygen O2 Source Room air I&O (Last 24 Hrs): Intake and Output Totals x24h 10/08/20 10/09/20 10/10/20 23:59 23:59 23:59 Intake Total 2313.333 3348.334 1100 Output Total 400 350 300 Balance 7733.107 0728.334 800 - Results Results: Laboratory Results WBC 5.2 x10^3/uL (4.8-10.8) 10/10/20 05:33 RBC 2.90 10^6/uL (4.20-5.40) L 10/10/20 05:33 Hgb 7.6 g/dL (12.0-16.0) L 10/10/20 05:33 Hct 25.8 % (37.0-47.0) L 10/10/20 05:33 MCV 89.0 fL (81.0-99.0) 10/10/20 05:33 MCH 26.2 pg (27.0-31.0) L 10/10/20 05:33 MCHC 29.5 g/dL (32.0-36.0) L 10/10/20 05:33 RDW 15.5 % (12.0-15.0) H 10/10/20 05:33 Plt Count 195 10^3/uL (130-450) 10/10/20 05:33 MPV 8.3 fL (7.9-10.8) 10/10/20 05:33 Neut # (Auto) 3.5 10^3/uL (1.5-6.6) 10/10/20 05:33 Lymph # (Auto) 1.0 10^3/uL (1.5-3.5) L 10/10/20 05:33 [place] # (Auto) 0.5 10^3/uL (0.0-1.0) 10/10/20 05:33 Eos # (Auto) 0.1 10^3/uL (0.0-0.7) 10/10/20 05:33 Baso # (Auto) 0.0 10^3/uL (0.0-0.1) 10/10/20 05:33 Absolute Nucleated RBC 0.00 x10^3/uL 10/10/20 05:33 Total Counted 100 10/08/20 06:02 Band Neuts % (Manual) 0 % (0-10) 10/08/20 06:02 Abnorm Lymph % (Manual) 0 % 10/08/20 06:02 Nucleated RBC % 0.0 /100WBC 10/10/20 05:33 Neutrophils # (Manual) 4.5 10^3/uL (1.5-6.6) 10/08/20 06:02 Lymphocytes # (Manual) 1.1 10^3/uL (1.5-3.5) L 10/08/20 06:02 Monocytes # (Manual) 0.5 10^3/uL (0.0-1.0) 10/08/20 06:02 Eosinophils # (Manual) 0.1 10^3/uL (0-0.7) 10/08/20 06:02 Basophils # (Manual) 0.0 10^3/uL (0-0.1) 10/08/20 06:02 Differential Comment MANUAL DIFFERENTIAL 10/08/20 06:02 Manual Slide Review Indicated 10/09/20 04:17 WBC Morphology NORMAL APPEARANCE (NORMAL) 10/09/20 04:17 Platelet Estimate NORMAL (130-450,000) (NORMAL) 10/09/20 04:17 Platelet Morphology NORMAL APPEARANCE (NORMAL) 10/09/20 04:17 RBC Morph Micro Appear 1+ HYPOCHROMASIA (NORMAL) 2+ SABIHA CELLS (NORMAL) 1+ OVALOCYTES (NORMAL) 10/09/20 04:17 RBC Morph Micro Appear 1+ HYPOCHROMASIA (NORMAL) 2+ SABIHA CELLS (NORMAL) 1+ OVALOCYTES (NORMAL) 10/09/20 04:17 RBC Morph Micro Appear 1+ HYPOCHROMASIA (NORMAL) 2+ SABIHA CELLS (NORMAL) 1+ OVALOCYTES (NORMAL) 10/09/20 04:17 Sodium 139 mmol/L (135-145) 10/10/20 05:33 Potassium 4.6 mmol/L (3.5-5.0) 10/10/20 05:33 Chloride 114 mmol/L (101-111) H 10/10/20 05:33 Carbon Dioxide 19 mmol/L (21-32) L 10/10/20 05:33 Anion Gap 6.0 (6-13) 10/10/20 05:33 BUN 8 mg/dL (6-20) 10/10/20 05:33 Creatinine 0.9 mg/dL (0.4-1.0) 10/10/20 05:33 Estimated GFR (MDRD) 64 (>89) L 10/10/20 05:33 Glucose 91 mg/dL (70-100) 10/10/20 05:33 Estimat Average Glucose 114 mg/dL (70-100) H 10/07/20 09:31 Hemoglobin A1c % 5.6 % (4.27-6.07) 10/07/20 09:31 Calcium 7.5 mg/dL (8.5-10.3) L 10/10/20 05:33 Phosphorus 2.7 mg/dL (2.5-4.6) 10/03/20 12:39 Magnesium 2.5 mg/dL (1.7-2.8) 10/03/20 12:39 Total Bilirubin 0.4 mg/dL (0.2-1.0) 10/07/20 08:45 Direct Bilirubin 0.1 mg/dL (0.1-0.5) 10/07/20 08:45 AST 14 IU/L (10-42) 10/07/20 08:45 ALT < 10 IU/L (10-60) L 10/07/20 08:45 Alkaline Phosphatase 52 IU/L (42-121) 10/07/20 08:45 Total Protein 5.0 g/dL (6.7-8.2) L 10/07/20 08:45 Albumin 2.3 g/dL (3.2-5.5) L 10/07/20 08:45 Globulin 2.7 g/dL (2.1-4.2) 10/07/20 08:45 Albumin/Globulin Ratio 1.0 (1.0-2.2) 10/03/20 12:39 Lipase 48 U/L (22-51) 10/03/20 12:39 Tumor Marker AFP 1.2 ng/mL 10/04/20 04:49 Carcinoembryonic Ag 1.5 ng/mL 10/04/20 04:49 CA 125 Antigen 938.7 U/mL (0.0-35.0) H 10/04/20 04:49 Urine Color YELLOW 10/03/20 16:37 Urine Clarity HAZY (CLEAR) 10/03/20 16:37 Urine pH 6.0 PH (5.0-7.5) 10/03/20 16:37 Ur Specific [place] 1.015 (1.002-1.030) 10/03/20 16:37 Urine Protein TRACE mg/dL (NEGATIVE) 10/03/20 16:37 Urine Glucose (UA) NEGATIVE mg/dL (NEGATIVE) 10/03/20 16:37 Urine Ketones 15 mg/dL (NEGATIVE) H 10/03/20 16:37 Urine Occult Blood TRACE-INTA (NEGATIVE) 10/03/20 16:37 Urine Nitrite POSITIVE (NEGATIVE) H 10/03/20 16:37 Urine Bilirubin NEGATIVE (NEGATIVE) 10/03/20 16:37 Urine Urobilinogen 2 E.U./dL (NORMAL) H 10/03/20 16:37 Ur Leukocyte Esterase LARGE (NEGATIVE) H 10/03/20 16:37 Urine RBC 0-5 /HPF (0-5) 10/03/20 16:37 Urine WBC >25 /HPF (0-5) H 10/03/20 16:37 Ur Squamous Epith Cells NONE SEEN (<= Few) 10/03/20 16:37 Urine Bacteria Many /HPF (None Seen) H 10/03/20 16:37 Ur Microscopic Review INDICATED 10/03/20 16:37 Urine Culture Comments INDICATED 10/03/20 16:37 Nasal Adenovirus (PCR) NOT DETECTED 10/03/20 14:50 Nasal B. parapertussis DNA (PCR) NOT DETECTED 10/03/20 14:50 Nasal Coronavir 229E PCR NOT DETECTED 10/03/20 14:50 Nasal Coronavir HKU1 PCR NOT DETECTED 10/03/20 14:50 Nasal Coronavir NL63 PCR NOT DETECTED 10/03/20 14:50 Nasal Coronavir OC43 PCR NOT DETECTED 10/03/20 14:50 Nasal Enterovir/Rhinovir PCR NOT DETECTED 10/03/20 14:50 Nasal Influenza B PCR NOT DETECTED 10/03/20 14:50 Nasal Influenza A PCR NOT DETECTED 10/03/20 14:50 Nasal Parainfluen 1 PCR NOT DETECTED 10/03/20 14:50 Nasal Parainfluen 2 PCR NOT DETECTED 10/03/20 14:50 Nasal Parainfluen 3 PCR NOT DETECTED 10/03/20 14:50 Nasal Parainfluen 4 PCR NOT DETECTED 10/03/20 14:50 Nasal RSV (PCR) NOT DETECTED 10/03/20 14:50 Nasal B.pertussis DNA PCR NOT DETECTED 10/03/20 14:50 Nasal C.pneumoniae (PCR) NOT DETECTED 10/03/20 14:50 Jm Human Metapneumo PCR NOT DETECTED 10/03/20 14:50 Nasal M.pneumoniae (PCR) NOT DETECTED 10/03/20 14:50 Nasal SARS-CoV-2 (PCR) NOT DETECTED 10/03/20 14:50 Urine Opiates Screen NEGATIVE (NEGATIVE) 10/03/20 16:37 Ur Oxycodone Screen NEGATIVE (NEGATIVE) 10/03/20 16:37 Urine Methadone Screen NEGATIVE (NEGATIVE) 10/03/20 16:37 Ur Propoxyphene Screen NEGATIVE (NEGATIVE) 10/03/20 16:37 Ur Barbiturates Screen NEGATIVE (NEGATIVE) 10/03/20 16:37 Ur Tricyclics Screen NEGATIVE (NEGATIVE) 10/03/20 16:37 Ur Phencyclidine Scrn NEGATIVE (NEGATIVE) 10/03/20 16:37 Ur Amphetamine Screen NEGATIVE (NEGATIVE) 10/03/20 16:37 U Methamphetamines Scrn NEGATIVE (NEGATIVE) 10/03/20 16:37 U Benzodiazepines Scrn NEGATIVE (NEGATIVE) 10/03/20 16:37 Urine Cocaine Screen NEGATIVE (NEGATIVE) 10/03/20 16:37 U Cannabinoids Screen NEGATIVE (NEGATIVE) 10/03/20 16:37
[2020-10-10] MEDS: KETOROLAC 15 MG/ML VIAL IVP PRN (11:27)
--- NOTE | 2020-10-10 12:01 | PROVIDER PROGRESS NOTE ---
Subjective - Prog Note Date Prog Note Date: 10/10/20 Prog Note Time: 11:47 - Subjective Subjective: she continues to have N/V but able to keep some juice down at times. She will swallow and liquid doesn't even get thru and then she vomits. She hasn't gotten out of bed in 5 days and no food since 10/06. Current Medications - Current Medications Current Medications: Active Medications Acetaminophen (Acetaminophen 325 Mg Tablet) 650 mg PO Q4HR PRN PRN Reason: Pain or Fever > 38C (100.4F) Last Admin: 10/09/20 15:11 Dose: 650 mg Documented by: Folic Acid (Folic Acid 1 Mg Tablet) 1 mg PO DAILY [facility] Last Admin: 10/10/20 09:03 Dose: 1 mg Documented by: Hydromorphone HCl (Hydromorphone 0.5 Mg/0.5 Ml Syringe) 0.5 mg IVP Q2H PRN PRN Reason: Pain 8 to 10 Potassium Chloride/Dextrose/Sod Cl () 1,000 mls @ 100 mls/hr IV .Q10H [facility] Last Admin: 10/10/20 11:31 Dose: Not Given Documented by: Promethazine HCl 25 mg/ Sodium (Chloride) 51 mls @ 100 mls/hr IV Q6H PRN PRN Reason: Nausea / Vomiting Ceftriaxone Sodium 1 gm/ (Sodium Chloride) 100 mls @ 200 mls/hr IV DAILY [facility] Last Infusion: 10/10/20 09:30 Dose: Infused Documented by: Insulin Aspart (Insulin Aspart 300 Unit/3 Ml Pen) 1 - 5 unit SUBQ 0800,1200,1700,2100 [facility]; Protocol Last Admin: 10/10/20 11:26 Dose: Not Given Documented by: Ketorolac Tromethamine (Ketorolac 15 Mg/Ml Vial) 15 mg IVP Q6HR PRN PRN Reason: PAIN Stop: 10/12/20 18:43 Last Admin: 10/10/20 11:27 Dose: 15 mg Documented by: Lorazepam (Lorazepam 2 Mg/Ml Vial) 0.5 mg IVP Q6H PRN PRN Reason: Nausea / Vomiting Last Admin: 10/10/20 00:16 Dose: 0.5 mg Documented by: Ondansetron HCl (Ondansetron 4 Mg/2 Ml Vial) 4 mg IVP Q6HR PRN PRN Reason: Nausea / Vomiting Last Admin: 10/09/20 17:16 Dose: 4 mg Documented by: Ondansetron HCl (Ondansetron Odt 4 Mg Tablet) 4 mg [facility] Last Admin: 10/10/20 11:18 Dose: 4 mg Documented by: Prochlorperazine Edisylate (Prochlorperazine 10 Mg/2 Ml Vial) 10 mg IVP Q6HR PRN PRN Reason: Nausea / Vomiting Last Admin: 10/10/20 11:21 Dose: 10 mg Documented by: Sodium Chloride (Sodium Chloride Flush 0.9% 10 Ml Syringe) 10 ml IVP PRN PRN PRN Reason: NEEDED PER PROVIDER ORDERS Last Admin: 10/10/20 00:16 Dose: 10 ml Documented by: Sodium Chloride (Sodium Chloride Flush 0.9% 10 Ml Syringe) 10 ml IVP 0100,0900,1700 [facility] Last Admin: 10/10/20 08:22 Dose: Not Given Documented by: Throat Lozenges (Benzocaine/Menthol Lozenge) 1 lozenge MM Q2HR PRN PRN Reason: Throat pain Last Admin: 10/05/20 06:02 Dose: 1 lozenge Documented by: Zolpidem Tartrate (Zolpidem 5 Mg Tablet) 5 mg PO QPM PRN PRN Reason: Insomnia Last Admin: 10/09/20 20:14 Dose: 5 mg Documented by: Atorvastatin Calcium [Lipitor] 80 mg PO DAILY 09/04/20 Clopidogrel [Plavix] 75 mg PO DAILY 09/04/20 Lisinopril/Hydrochlorothiazide [Zestoretic 20-25 mg Tablet] 20 - 25 mg PO DAILY 09/04/20 Meloxicam [Mobic] 7.5 mg PO DAILY 09/04/20 Pioglitazone HCl [Actos] 30 mg PO DAILY 09/04/20 amLODIPine [Norvasc] 5 mg PO DAILY 09/04/20 hydrOXYzine HCL [Hydroxyzine HCl] 50 - 100 mg PO HS PRN 09/04/20 Mirtazapine [Remeron] 7.5 mg PO DAILY PM 10/03/20 Omeprazole [PriLOSEC] 20 mg PO BID 10/03/20 Objective - Vital Signs/Intake & Output Reviewed Vital Signs: Yes Vital Signs: Vital Signs x48h Temp Pulse Resp BP Pulse Ox 10/10/20 08:00 36.8 C 95 18 136/83 H 96 Intake & Output: Intake & Output 10/07/20 10/08/20 10/09/20 10/10/20 23:59 23:59 23:59 23:59 Intake Total 2110 2313.333 3348.334 1100 Output Total 715 400 350 300 Balance 1395 2734.407 8284.334 800 - Objective General Appearance: positive: Lethargic (but wakens to voice to have a conversation.) Eyes Bilateral: positive: PERRL ENT: positive: Dry mucous membranes Neck: positive: No JVD. negative: Stiff neck Respiratory: positive: No respiratory distress, Other (dull bases w egophony). negative: Wheezes, Rales, Rhonchi Cardiovascular: positive: Regular rate & rhythm, Systolic murmur. negative: Gallop/S4, Friction rub Abdomen: positive: Tenderness (generalized and a 6/10), Abnml bowel sounds (hypoactive). negative: Guarding, Rebound Skin: positive: Warm, Dry, Pallor Extremities: positive: Full ROM, Other (diffuse body edema) Neurologic/Psychiatric: positive: Oriented x3 (except time), CN's nml (2-12), Motor nml, Disoriented to time. negative: Mood/affect nml (cognitive deficits. Flat affect. Tearful w discussion. "I don't want to ") - Lab Results Fish Bones: 10/10/20 05:33 10/10/20 05:33 Other Labs: Lab Results x24hrs 10/10/20 10/10/20 Range/Units 05:33 05:33 WBC 5.2 (4.8-10.8) x10^3/uL RBC 2.90 L (4.20-5.40) 10^6/uL Hgb 7.6 L (12.0-16.0) g/dL Hct 25.8 L (37.0-47.0) % MCV 89.0 (81.0-99.0) fL MCH 26.2 L (27.0-31.0) pg MCHC 29.5 L (32.0-36.0) g/dL RDW 15.5 H (12.0-15.0) % Plt Count 195 (130-450) 10^3/uL MPV 8.3 (7.9-10.8) fL Neut # (Auto) 3.5 (1.5-6.6) 10^3/uL Lymph # (Auto) 1.0 L (1.5-3.5) 10^3/uL [place] # (Auto) 0.5 (0.0-1.0) 10^3/uL Eos # (Auto) 0.1 (0.0-0.7) 10^3/uL Baso # (Auto) 0.0 (0.0-0.1) 10^3/uL Absolute Nucleated RBC 0.00 x10^3/uL Nucleated RBC % 0.0 /100WBC Sodium 139 (135-145) mmol/L Potassium 4.6 (3.5-5.0) mmol/L Chloride 114 H (101-111) mmol/L Carbon Dioxide 19 L (21-32) mmol/L Anion Gap 6.0 (6-13) BUN 8 (6-20) mg/dL Creatinine 0.9 (0.4-1.0) mg/dL Estimated GFR (MDRD) 64 L (>89) Glucose 91 (70-100) mg/dL Calcium 7.5 L (8.5-10.3) mg/dL ABX Reporting Has patient been on IV antibiotics over the past 48 hours?: Yes Assessment/Plan - Problem List (1) Omental metastasis Impression: Gynecological oncology referral made with Dr. Kamila Mcwilliams in [place] I have given her a phone call today @[phone]. She is in the OR in [place] today. Patient would follow-up with the [facility] clinic for medical oncology. However, her status is so poor, we wonder if she will survive and we are going to ask Dr. Mcwilliams what the expectations would be in a general sense. She will be seen by palliative care in the outpatient setting. They did come by today to check in with us but the care goals are not clear so we can't quite tell her yet what the expectation will be. Will consider requesting palliative consult for inpatient setting if patient is unable to be discharged by today due to nausea vomiting. 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 We may be calling the wrong service and she agreed with me to run it past the General Oncology Service at the [facility] here to see what they think. I reviewed the pathology w Dr. Sung ([place] [facility]) and he wants to stress: +not curable +may get 6-12 months more of life w chemo +significant side effects w chemo +if no chemo, weeks by description of low functional/performance status Please see ACP discussion (2) Nausea & vomiting Qualifiers: Vomiting type: unspecified Vomiting Intractability: intractable Qualified Code(s): R11.2 - Nausea with vomiting, unspecified Assessment/Plan: Nausea and vomiting persist for this unfortunate lady. last meal 10/06/2020 Patient had 3 episodes of vomiting in the morning yesterday and it continues into the afternoon and today.l Reglan IV as needed was added to yesterday Zofran for nausea. Abdominal yesterday x-ray did not show any obstruction w AF levels but she has diffuse omental caking and I expect functional obstruction due to this. Patient is N.p.o. for now. We will continue IV hydration with D5 + normal saline +20 mEq of potassium at 100 mils per hour. Nutrition is working with her to get her to eat. Wants smooth food and fruity. willing to mashed potatos. (3) Acute kidney injury resolved. Assessment/Plan: Resolved. Patient's creatinine today was 0.9 with an estimated GFR of 64. (4) Dehydration resolved. Assessment/Plan: Will maintain patient on IV hydration with D5 normal saline +20 mEq of potassium at 100 mils per hour while patient is n.p.o. due to nausea and vomiting. 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 (6) UTI (urinary tract infection) Assessment/Plan: Patient had a urine analysis on subsequent urine culture done on 10/03/2020 which grew E. coli. She had abd pain, n/v upon presentation. 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 The patient has been persistently nauseous and vomiting. She reports generally feeling sick however is not able to give specifics to her discomfort. Over the past few days her urine output has become steadily darker and redder despite improved estimated GFR of 64 and creatinine of 0.9. As a result the decision is made to empirically treat for a suspected UTI 10/09/2020. We started the patient on Rocephin 1 g IV every 24 hours. Today Day #2.
--- NOTE | 2020-10-10 13:42 | ADVANCE CARE PLANNING NOTE ---
Advance Care Planning - Planning Encounter Date: 10/10/20 Time: 11:30 Purpose: establish goals of care in face of diagnosis Parties in Attendance: Patient and hospitalist Decisional Capacity of the Patient: cognitive deficits from CVA. I spoke to daughter who respects mom's decision.s - Diagnosis for Encounter (1) Omental metastasis Summary: Had a change in status starting July of last year. Gradually progressive increasing nausea, vomiting, poor appetite. Weight loss. Admitted once. Discharge. Seen in the ER and discharged. With third evaluation CT of the abdomen was done and showed diffuse omental changes. Taken to the OR and had laparoscopic biopsy. Biopsy shows neuroendocrine tumor on markers. - Encounter Subjective/Patient's Story: She has had strokes in the past. Has a history of substance abuse in the past. Eventually ended up living with her daughter. Has been clean and sober, but art fields was overwhelmed with mom's care. She eventually ended up at [facility] in [place]. She is only been there for a few months. She participated in activities. Smoked daily. Went outside to smoke. Was a "member of the community". The staff noticed a difference in July. She started spending more time in her room. She just did not feel like going outside to smoke because she was too tired. No specific complaints. We have shared the diagnosis with her. We have explained to her that it is a rare kind of tumor. Not ovarian or colon. I have explained to her that it is already stage IV. The worst that it can be. Treatment will offer her a slightly longer life but will not cure her. She is tearful and states that she does not want to . States that she still wants chemotherapy even if it is only going up by her 6 to 12 months of life. I have explained to her that the chemotherapy will make her very sick. Probably as sick as she is now if not worse. She states that she still wants to try. She specifically says she wants Keytruda. I am startled. She cannot tell me where she heard about that drug. I carefully explained that while she would be offered therapy, I cannot promise her that oncology will give her Keytruda on the basis of her request. She says that she saw it on TV and that is what she wants. I have also discussed this with her daughter on the phone. Daughter is willing to honor mom's wishes. But daughter is starting to think down the road of things such as power of attorney lawyer and DURABLE POWER OF PUMP ERECTOR. Both patient and daughter were in tears. Grieving. Daughter is good friends with her boss. Boss got on the phone and asked practical questions about how do you do DURABLE POWER OF PUMP ERECTOR, or power of attorney lawyer forms. I explained to the patient that her performance status is on the low side right now. I explained that performance status has to do with getting up out of bed, feeding herself, going to the bathroom by herself, and having an overall general status that allows you to take chemotherapy. In order for her to do well with the chemotherapy she is going to have to get out of bed, she is going to have to eat. She is really not eaten much in the last 5 to 7 days. She says that she swallows something, even liquid, and it comes right back up. Nothing tastes good. I have offered her tube feedings, or TPN. She declines. Pain at this time is diffuse, moderate and all over her body as well as her abdomen. Controlled with Toradol and Dilaudid. Occasional anxiety needs lorazepam. Objective/Medical Story: This is a 60 y/o F with a history of Type 2 DM, HTN, hyperlipidemia, and CVA x2 who presented to the ED via EMS for intractable nausea and vomiting. She has been seen multiple times for this reason since mid-August. She says that she has been vomiting about every 20 minutes for the last 3 weeks. She says the vomit is green. Oral intake aggravates her symptoms, there are no alleviating factors. She still has an appetite but is unable to hold anything down. She has lost 20 lbs in the last month. She denies any hemoptysis, chest pain, shortness of breath, palpitations. Her CT abdomen/pelvis w/o contrast revealed definite likely malignant thickening of the omentum best seen at the left upper quadrant, ventral to the spleen that also extends inferiorly along the anterior peritoneal space into the pelvis. Her chemistry panel is notable for an elevated BUN (39), GFR of 31, elevated creatinine (1.7, baseline 1.2-1.5), hypokalemia (2.3) and hypochloremia (78). She is being admitted to have her electrolyte imbalance corrected before being taken to the OR to have a laproscopic biopsy. - Past Medical History Cardiovascular: reports: Hypertension Respiratory: reports: None Neuro: reports: CVA (x2, no focal deficits) Endocrine/Autoimmune: reports: Type 2 diabetes GI: reports: None [employer] ARCHITECT: reports: Other : reports: None HEENT: reports: None Psych: reports: None Musculoskeletal: reports: None Derm: reports: None MRSA Hx?: No - Past Surgical History /SAP BASIS ARCHITECT: reports: section (x4) Derm: reports: Skin cancer surgery (upper back for melanoma) Goals of Care: 1. She will be continuing to live in an assisted living facility/senior care facility 2. In spite of poor prognosis, she would still like to try chemotherapy 3. She wants to remain a full code 4. Daughter would like to start progressing with future possibility of mental disability and mom not able to make decisions so will be seeking power of attorney lawyer Plan: 1. I have spoken to pharmacy. Opdivo is usually the monoclonal antibody drug used in neuroendocrine tumor. We would have to try to get authorization. But before that she needs to be seen by oncology 2. Cancel the referral to SAP BASIS ARCHITECT oncology. 3. Switch referral to general oncology 4. Start planning the logistics of getting her to a general oncology office to be seen in the outpatient setting 5. Work on nutrition. Nutrition has already seen her today and controlled her into a smoothie, oranges, and hopefully she will be able to keep it down. She refuses TPN or tube feeds. 6. General oncology, in discussion today, firmly request that palliative care consultation be on board. Goals of care will be to get her to chemotherapy, focus on symptom management. Code Status: Attempt Resuscitation Time spent on advance care plannin
[2020-10-10] MEDS: ZOLPIDEM 5 MG TABLET PO PRN (23:09)
[2020-10-11] MEDS: SODIUM CHLORIDE FLUSH 0.9% 10 ML SYRINGE IVP SCH ×4 (01:18→23:55)
[2020-10-11] MEDS: PROCHLORPERAZINE 10 MG/2 ML VIAL IVP PRN ×2 (05:00→23:54)
[2020-10-11] MEDS: D5NS W/20 MEQ KCL 1,000 ML IV SCH ×2 (05:00→16:57)
[2020-10-11] MEDS: KETOROLAC 15 MG/ML VIAL IVP PRN ×2 (05:12→13:28)
[2020-10-11 05:59] LABS: BASOPHILS # (AUTO) 0.1 10^3/uL (0.0-0.1); BASOPHILS % (AUTO) 1.3 %; EOSINOPHILS # (AUTO) 0.1 10^3/uL (0.0-0.7); EOSINOPHILS % (AUTO) 1.9 %; HGB - HEMOGLOBIN 7.8 g/dL (12.0-16.0); LYMPHOCYTES # (AUTO) 1.2 10^3/uL (1.5-3.5); LYMPHOCYTES % (AUTO) 22.3 %; MEAN CORPUSCULAR HEMOGLOBIN 26.5 pg (27.0-31.0); MEAN CORPUSCULAR HGB CONC 29.7 g/dL (32.0-36.0); MEAN CORPUSCULAR VOLUME 89.5 fL (81.0-99.0); MEAN PLATELET VOLUME 8.7 fL (7.9-10.8); MONOCYTES # (AUTO) 0.5 10^3/uL (0.0-1.0); MONOCYTES % (AUTO) 9.6 %; NEUTROPHILS # (AUTO) 3.4 10^3/uL (1.5-6.6); NEUTROPHILS % (AUTO) 63.4 %; PLT - PLATELET COUNT 202 10^3/uL (130-450); RED BLOOD COUNT 2.94 10^6/uL (4.20-5.40); RED CELL DISTRIBUTION WIDTH 15.6 % (12.0-15.0); WHITE BLOOD COUNT 5.3 x10^3/uL (4.8-10.8)
[2020-10-11 06:06] LABS: CALCIUM 7.5 mg/dL (8.5-10.3); CREATININE 0.9 mg/dL (0.4-1.0)
[2020-10-11] MEDS: ONDANSETRON ODT 4 MG TABLET TL SCH ×3 (06:52→16:26)
[2020-10-11] MEDS: INSULIN ASPART 300 UNIT/3 ML PEN SUBQ SCH ×4 (08:34→20:48)
[2020-10-11] MEDS: FOLIC ACID 1 MG TABLET PO SCH (08:34)
[2020-10-11] MEDS: cefTRIAXone 1 GM in SODIUM CHLORIDE 0.9% MINIBAG 100 ML IV SCH (08:34)
[2020-10-11] MEDS: ACETAMINOPHEN 325 MG TABLET PO PRN (12:22)
[2020-10-11] MEDS: ONDANSETRON 4 MG/2 ML VIAL IVP PRN (13:23)
--- NOTE | 2020-10-11 13:28 | PROVIDER PROGRESS NOTE ---
Subjective - Prog Note Date Prog Note Date: 10/11/20 - Subjective Subjective: She continues to complain of abdominal pain. Continues to have nausea associated with vomiting with each meal. She reports having bowel movements. She is now agreeable to a PICC line for TPN or a PEG tube. She is also agreeable to a palliative care consult. Current Medications - Current Medications Current Medications: Active Medications Acetaminophen (Acetaminophen 325 Mg Tablet) 650 mg PO Q4HR PRN PRN Reason: Pain or Fever > 38C (100.4F) Last Admin: 10/11/20 12:22 Dose: 650 mg Documented by: Folic Acid (Folic Acid 1 Mg Tablet) 1 mg PO DAILY [facility] Last Admin: 10/11/20 08:34 Dose: 1 mg Documented by: Hydromorphone HCl (Hydromorphone 0.5 Mg/0.5 Ml Syringe) 0.5 mg IVP Q2H PRN PRN Reason: Pain 8 to 10 Potassium Chloride/Dextrose/Sod Cl () 1,000 mls @ 100 mls/hr IV .Q10H [facility] Last Admin: 10/11/20 05:00 Dose: 100 mls/hr Documented by: Promethazine HCl 25 mg/ Sodium (Chloride) 51 mls @ 100 mls/hr IV Q6H PRN PRN Reason: Nausea / Vomiting Ceftriaxone Sodium 1 gm/ (Sodium Chloride) 100 mls @ 200 mls/hr IV DAILY [facility] Last Infusion: 10/11/20 11:22 Dose: Infused Documented by: Insulin Aspart (Insulin Aspart 300 Unit/3 Ml Pen) 1 - 5 unit SUBQ 0800,1200,1700,2100 [facility]; Protocol Last Admin: 10/11/20 11:47 Dose: Not Given Documented by: Ketorolac Tromethamine (Ketorolac 15 Mg/Ml Vial) 15 mg IVP Q6HR PRN PRN Reason: PAIN Stop: 10/12/20 18:43 Last Admin: 10/11/20 13:28 Dose: 15 mg Documented by: Lorazepam (Lorazepam 2 Mg/Ml Vial) 0.5 mg IVP Q6H PRN PRN Reason: Nausea / Vomiting Last Admin: 10/10/20 00:16 Dose: 0.5 mg Documented by: Ondansetron HCl (Ondansetron 4 Mg/2 Ml Vial) 4 mg IVP Q6HR PRN PRN Reason: Nausea / Vomiting Last Admin: 10/11/20 13:23 Dose: 4 mg Documented by: Ondansetron HCl (Ondansetron Odt 4 Mg Tablet) 4 mg [facility] Last Admin: 10/11/20 11:31 Dose: 4 mg Documented by: Prochlorperazine Edisylate (Prochlorperazine 10 Mg/2 Ml Vial) 10 mg IVP Q6HR PRN PRN Reason: Nausea / Vomiting Last Admin: 10/11/20 05:00 Dose: 10 mg Documented by: Sodium Chloride (Sodium Chloride Flush 0.9% 10 Ml Syringe) 10 ml IVP PRN PRN PRN Reason: NEEDED PER PROVIDER ORDERS Last Admin: 10/10/20 00:16 Dose: 10 ml Documented by: Sodium Chloride (Sodium Chloride Flush 0.9% 10 Ml Syringe) 10 ml IVP 0100,0900,1700 [facility] Last Admin: 10/11/20 08:34 Dose: Not Given Documented by: Throat Lozenges (Benzocaine/Menthol Lozenge) 1 lozenge MM Q2HR PRN PRN Reason: Throat pain Last Admin: 10/05/20 06:02 Dose: 1 lozenge Documented by: Zolpidem Tartrate (Zolpidem 5 Mg Tablet) 5 mg PO QPM PRN PRN Reason: Insomnia Last Admin: 10/10/20 23:09 Dose: 5 mg Documented by: Atorvastatin Calcium [Lipitor] 80 mg PO DAILY 09/04/20 Clopidogrel [Plavix] 75 mg PO DAILY 09/04/20 Lisinopril/Hydrochlorothiazide [Zestoretic 20-25 mg Tablet] 20 - 25 mg PO DAILY 09/04/20 Meloxicam [Mobic] 7.5 mg PO DAILY 09/04/20 Pioglitazone HCl [Actos] 30 mg PO DAILY 09/04/20 amLODIPine [Norvasc] 5 mg PO DAILY 09/04/20 hydrOXYzine HCL [Hydroxyzine HCl] 50 - 100 mg PO HS PRN 09/04/20 Mirtazapine [Remeron] 7.5 mg PO DAILY PM 10/03/20 Omeprazole [PriLOSEC] 20 mg PO BID 10/03/20 Objective - Vital Signs/Intake & Output Reviewed Vital Signs: Yes Vital Signs: Vital Signs x48h Temp Pulse Resp BP Pulse Ox 10/11/20 08:00 36.6 C 87 16 130/85 H 96 Intake & Output: Intake & Output 10/08/20 10/09/20 10/10/20 10/11/20 23:59 23:59 23:59 23:59 Intake Total 2313.333 3348.334 2160 440 Output Total 689 079 4338 300 Balance 8039.329 1948.334 860 140 - Objective General Appearance: positive: No acute distress, Alert Eyes Bilateral: positive: Normal inspection, Conjunctivae nml Neck: positive: Nml inspection Respiratory: positive: No respiratory distress. negative: Wheezes, Rales Abdomen: positive: Nml bowel sounds, Tenderness (Diffuse tenderness.). negat riaz: No distention (Mild distention.), Guarding, Rebound Skin: positive: Warm, Dry Extremities: positive: No pedal edema Neurologic/Psychiatric: negative: Disoriented to person, Disoriented to place - Lab Results Fish Bones: 10/11/20 05:25 10/11/20 05:25 Other Labs: Lab Results x24hrs 10/11/20 10/11/20 Range/Units 05:25 05:25 WBC 5.3 (4.8-10.8) x10^3/uL RBC 2.94 L (4.20-5.40) 10^6/uL Hgb 7.8 L (12.0-16.0) g/dL Hct 26.3 L (37.0-47.0) % MCV 89.5 (81.0-99.0) fL MCH 26.5 L (27.0-31.0) pg MCHC 29.7 L (32.0-36.0) g/dL RDW 15.6 H (12.0-15.0) % Plt Count 202 (130-450) 10^3/uL MPV 8.7 (7.9-10.8) fL Neut # (Auto) 3.4 (1.5-6.6) 10^3/uL Lymph # (Auto) 1.2 L (1.5-3.5) 10^3/uL Mcdonald # (Auto) 0.5 (0.0-1.0) 10^3/uL Eos # (Auto) 0.1 (0.0-0.7) 10^3/uL Baso # (Auto) 0.1 (0.0-0.1) 10^3/uL Absolute Nucleated RBC 0.00 x10^3/uL Nucleated RBC % 0.0 /100WBC Sodium 137 (135-145) mmol/L Potassium 4.3 (3.5-5.0) mmol/L Chloride 112 H (101-111) mmol/L Carbon Dioxide 18 L (21-32) mmol/L Anion Gap 7.0 (6-13) BUN 11 (6-20) mg/dL Creatinine 0.9 (0.4-1.0) mg/dL Estimated GFR (MDRD) 64 L (>89) Glucose 97 (70-100) mg/dL Calcium 7.5 L (8.5-10.3) mg/dL ABX Reporting Has patient been on IV antibiotics over the past 48 hours?: No Assessment/Plan - Problem List (1) Nausea & vomiting Impression: He continues to have intractable nausea and vomiting. Suspect is likely secondary to her malignancy. There has been no evidence of obstruction. She is agreeable to TPN. I do not believe a PEG tube will be of benefit as it does not treat the underlying cause of her nausea and vomiting and she will still be at risk for vomiting. We will change her antiemetics to Zofran and Compazine. If she is still nauseous and vomiting tonight. We will have a PICC line placed tomorrow morning and start her on TPN. Qualifiers: Vomiting type: unspecified Vomiting Intractability: intractable Qualified Code(s): R11.2 - Nausea with vomiting, unspecified (2) Neuroendocrine carcinoma Impression: Pathology of the omentum biopsy was consistent with poorly differentiated high- grade neuroendocrine carcinoma. This is likely to be a large cell. These findings have been discussed with oncology and the plan is to have the patient follow-up on discharge with medical oncology. These findings have been discussed with the patient. I am concerned this may be contributing to her nausea and vomiting. She is agreeable to palliative care. 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 Plan as mentioned above. (4) UTI (urinary tract infection) Impression: Her urine culture grew pansensitive E. coli and her urinalysis was suggestive of infection. A decision was made to treat empirically with ceftriaxone IV on Sep. We will switch her to oral antibiotics when she is taking p.o. consistently. Continue ceftriaxone IV for the time being. We will treat her for total of 5 days. 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 (6) Hx of essential hypertension Impression: Her blood pressure has been elevated. We will resume her home amlodipine. (7) Acute kidney injury Impression: This has resolved.
[2020-10-11] MEDS: SODIUM CHLORIDE FLUSH 0.9% 10 ML SYRINGE IVP PRN (16:29)
[2020-10-11] MEDS: ATORVASTATIN 40 MG TABLET PO SCH (20:49)
[2020-10-11] MEDS: ZOLPIDEM 5 MG TABLET PO PRN (20:50)
[2020-10-12] MEDS: ONDANSETRON ODT 4 MG TABLET TL SCH ×3 (06:39→16:01)
[2020-10-12] MEDS: INSULIN ASPART 300 UNIT/3 ML PEN SUBQ SCH ×4 (08:12→21:35)
[2020-10-12] MEDS: FOLIC ACID 1 MG TABLET PO SCH (08:55)
[2020-10-12] MEDS: CLOPIDOGREL 75 MG TABLET PO SCH (08:55)
[2020-10-12] MEDS: cefTRIAXone 1 GM in SODIUM CHLORIDE 0.9% MINIBAG 100 ML IV SCH (08:55)
[2020-10-12] MEDS: amLODIPine 5 MG TABLET PO SCH (08:55)
[2020-10-12] MEDS: SODIUM CHLORIDE FLUSH 0.9% 10 ML SYRINGE IVP SCH ×3 (08:56→23:47)
[2020-10-12] MEDS ORDERED: OLANZapine ODT 5 MG TABLET TL SCH (09:00)
--- NOTE | 2020-10-12 15:48 | PROVIDER PROGRESS NOTE ---
Subjective - Prog Note Date Prog Note Date: 10/12/20 - Subjective Subjective: Patient was able to eat breakfast without vomiting. Still has abdominal pain. She still has nausea at times. Her last bowel movement was yesterday evening. She is agreeable to meeting with palliative care and is open to the idea of hospice. Current Medications - Current Medications Current Medications: Active Medications Acetaminophen (Acetaminophen 325 Mg Tablet) 650 mg PO Q4HR PRN PRN Reason: Pain or Fever > 38C (100.4F) Last Admin: 10/12/20 17:28 Dose: 650 mg Documented by: Amlodipine Besylate (Amlodipine 5 Mg Tablet) 5 mg PO DAILY [facility] Last Admin: 10/12/20 08:55 Dose: 5 mg Documented by: Atorvastatin Calcium (Atorvastatin 40 Mg Tablet) 80 mg PO QPM [facility] Last Admin: 10/11/20 20:49 Dose: 80 mg Documented by: Clopidogrel Bisulfate (Clopidogrel 75 Mg Tablet) 75 mg PO DAILY [facility] Last Admin: 10/12/20 08:55 Dose: 75 mg Documented by: Folic Acid (Folic Acid 1 Mg Tablet) 1 mg PO DAILY [facility] Last Admin: 10/12/20 08:55 Dose: 1 mg Documented by: Heparin Sodium (Beef Lung) (Heparin Flush 50 Units/5 Ml Syringe) 30 - 50 unit IVP PRN PRN PRN Reason: Port Protocol (<24 hours) Last Admin: 10/11/20 20:51 Dose: 50 unit Documented by: Hydromorphone HCl (Hydromorphone 0.5 Mg/0.5 Ml Syringe) 0.5 mg IVP Q2H PRN PRN Reason: Pain 8 to 10 Promethazine HCl 25 mg/ Sodium (Chloride) 51 mls @ 100 mls/hr IV Q6H PRN PRN Reason: Nausea / Vomiting Ceftriaxone Sodium 1 gm/ (Sodium Chloride) 100 mls @ 200 mls/hr IV DAILY [facility] Last Infusion: 10/12/20 09:52 Dose: Infused Documented by: Insulin Aspart (Insulin Aspart 300 Unit/3 Ml Pen) 1 - 5 unit SUBQ 0800,1200,1700,2100 [facility]; Protocol Last Admin: 10/12/20 17:28 Dose: Not Given Documented by: Olanzapine (Olanzapine Odt 5 Mg Tablet) 5 mg TL HS [facility] Stop: 10/18/20 20:59 Ondansetron HCl (Ondansetron 4 Mg/2 Ml Vial) 4 mg IVP Q6HR PRN PRN Reason: Nausea / Vomiting Last Admin: 10/11/20 13:23 Dose: 4 mg Documented by: Ondansetron HCl (Ondansetron Odt 4 Mg Tablet) 4 mg [facility] Last Admin: 10/12/20 16:01 Dose: 4 mg Documented by: Prochlorperazine Edisylate (Prochlorperazine 10 Mg/2 Ml Vial) 10 mg IVP Q6HR PRN PRN Reason: Nausea / Vomiting Last Admin: 10/11/20 23:54 Dose: 10 mg Documented by: Sodium Chloride (Sodium Chloride Flush 0.9% 10 Ml Syringe) 10 ml IVP PRN PRN PRN Reason: NEEDED PER PROVIDER ORDERS Last Admin: 10/11/20 16:29 Dose: 10 ml Documented by: Sodium Chloride (Sodium Chloride Flush 0.9% 10 Ml Syringe) 10 ml IVP 0100,0900,1700 [facility] Last Admin: 10/12/20 17:28 Dose: 10 ml Documented by: Throat Lozenges (Benzocaine/Menthol Lozenge) 1 lozenge MM Q2HR PRN PRN Reason: Throat pain Last Admin: 10/05/20 06:02 Dose: 1 lozenge Documented by: Zolpidem Tartrate (Zolpidem 5 Mg Tablet) 5 mg PO QPM PRN PRN Reason: Insomnia Last Admin: 10/11/20 20:50 Dose: 5 mg Documented by: Atorvastatin Calcium [Lipitor] 80 mg PO DAILY 09/04/20 Clopidogrel [Plavix] 75 mg PO DAILY 09/04/20 Lisinopril/Hydrochlorothiazide [Zestoretic 20-25 mg Tablet] 20 - 25 mg PO DAILY 09/04/20 Meloxicam [Mobic] 7.5 mg PO DAILY 09/04/20 Pioglitazone HCl [Actos] 30 mg PO DAILY 09/04/20 amLODIPine [Norvasc] 5 mg PO DAILY 09/04/20 hydrOXYzine HCL [Hydroxyzine HCl] 50 - 100 mg PO HS PRN 09/04/20 Mirtazapine [Remeron] 7.5 mg PO DAILY PM 10/03/20 Omeprazole [PriLOSEC] 20 mg PO BID 10/03/20 Objective - Vital Signs/Intake & Output Reviewed Vital Signs: Yes Vital Signs: Vital Signs x48h Temp Pulse Resp BP Pulse Ox 10/12/20 14:15 73 107/72 10/12/20 08:00 36.9 C 90 18 127/78 95 Intake & Output: Intake & Output 10/09/20 10/10/20 10/11/20 10/12/20 23:59 23:59 23:59 23:59 Intake Total 3348.334 2160 1620 150 Output Total 350 1300 750 350 Balance 2998.334 860 870 -200 - Objective General Appearance: positive: No acute distress, Alert Eyes Bilateral: positive: Normal inspection, Conjunctivae nml ENT: positive: ENT inspection nml Neck: positive: Nml inspection Respiratory: positive: No respiratory distress. negative: Wheezes, Rales Cardiovascular: positive: Regular rate & rhythm, No murmur. negative: Tachycardia Abdomen: positive: Tenderness (Mild diffuse tenderness.). 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 I spoke with Dr. bAebe of oncology today regarding this finding and unfortunately, the patient's prognosis is quite poor. She may potentially be a candidate for chemotherapy depending on her functional status but this may not provide her with much benefit. It was felt that hospice would also be an appropriate consideration. Either way, her prognosis is quite poor. I discussed this with palliative care as well as the patient and the patient's daughter at bedside today. After further discussion with the family and palliative care, patient and her family have decided to pursue hospice. A POLST form was filled out stating she is a DNR with focus on comfort. We will consult hospice and we will look to discharge the patient to a long-term care facility in [place] to be closer to her daughter. Appreciate palliative and social work input. (2) Nausea & vomiting Impression: Secondary to her malignancy. She still does have some nausea but was able to tolerate breakfast this morning. We will continue with Zofran as needed. We will trial her with Zyprexa to see if she has improvement with this. Discussion with oncology and family, we have all decided that we will not pursue TPN or PEG tube and the patient will be discharged on hospice. Qualifiers: Vomiting type: unspecified Vomiting Intractability: intractable Qualified Code(s): R11.2 - Nausea with vomiting, unspecified (3) Omental metastasis Impression: Pathology revealed large cell neuroendocrine carcinoma. Plan as mentioned above. This is the likely cause of her ongoing nausea and vomiting. (4) UTI (urinary tract infection) Impression: Tomorrow will be the last day of antibiotics. Her urine cultures grew E. coli. 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 Continue Plavix and statin. (6) Hx of essential hypertension Impression: Stable. Continue amlodipine. (7) Acute kidney injury Impression: This has resolved.
[2020-10-12] MEDS: ACETAMINOPHEN 325 MG TABLET PO PRN (17:28)
--- NOTE | 2020-10-12 18:08 | CONSULTATION NOTE ---
Palliative Care Consultation - Referral Referring Provider: Dr. Villalobos/Dr. Vargas Time of Visit: 3545-1281 Referral setting: Hospitalized patient Referral Reason: Neuroendocrine Carcinoma/FTT/Goals of Care - Information Sources Records reviewed: Previous records reviewed History/Review of Systems obtained from: Patient, Family (daughter Adelaida and niece Ameena present) Exam limitations: Clinical condition (patient withdrawn) - History of Present Illness Brief History of Present Illness: This is a 60-year-old woman who has had ongoing decline, and presents with complex history. Patient has had multiple strokes, known cognitive deficits from CVA, was having increased care needs, and was placed at [facility] in April 2020. She been previously living with her daughter who is 23, for 2 years previous to this until her care needs became to many. Patient had been having increased trouble over the last several months, with increased nausea, vomiting, poor appetite and weight loss, decrease in functional status, as well as decline in cognitive status. Patient has been wheelchair-bound, needing increased assistance, for about the last 6 weeks. She has been mostly bedbound since her stay here, has still continued to experience intermittent vomiting, and was found on CT abdomen pelvis to have a malignant thickening of the omentum. She was able to get a biopsy, which showed she did have a neuroendo crine tumor. Patient is not significantly improved over this last week, she does understand she has serious cancer, and today's meeting was to discuss her current status, goals of care, and follow-up regarding input from oncology. Palliative care is meeting with patient, her daughter, her niece, and had Dr. Vargas, join us, to further explain/explore her current situation and decisions currently facing. 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: Other : reports: None HEENT: reports: None Psych: reports: Depression, Anxiety Musculoskeletal: reports: Osteoarthritis, Fatigue Derm: reports: None MRSA Hx?: No - Past Surgical History /BOOKKEEPING MANAGER: reports: section Derm: reports: Skin cancer surgery - Substance History Use: Uses substance without health or social issues: Tobacco Abuse: Recurrent use of substance despite neg consequences: NONE Tobacco Details: Cigarettes Social History - Living Situation Living arrangement: Assisted living Living Situation: With caregiver(s) Support System: Patient has been residing at [facility], assisted living. Needing increased assistance, and has had steady decline over time. She does have 1 daughter, who is 23. The hope is to have her closer to her in [place], so she can participate in her care and continue to provide her support. Family History - Family History Family History: Mother: (she was adopted; she lost her adopted father at age 29, and mother to cancer age 40), Father: Medications/Allergies - Medications Active Medication List: Active Medications Acetaminophen (Acetaminophen 325 Mg Tablet) 650 mg PO Q4HR PRN PRN Reason: Pain or Fever > 38C (100.4F) Last Admin: 10/12/20 17:28 Dose: 650 mg Documented by: Amlodipine Besylate (Amlodipine 5 Mg Tablet) 5 mg PO DAILY [facility] Last Admin: 10/12/20 08:55 Dose: 5 mg Documented by: Atorvastatin Calcium (Atorvastatin 40 Mg Tablet) 80 mg PO QPM [facility] Last Admin: 10/11/20 20:49 Dose: 80 mg Documented by: Clopidogrel Bisulfate (Clopidogrel 75 Mg Tablet) 75 mg PO DAILY [facility] Last Admin: 10/12/20 08:55 Dose: 75 mg Documented by: Folic Acid (Folic Acid 1 Mg Tablet) 1 mg PO DAILY [facility] Last Admin: 10/12/20 08:55 Dose: 1 mg Documented by: Heparin Sodium (Beef Lung) (Heparin Flush 50 Units/5 Ml Syringe) 30 - 50 unit IVP PRN PRN PRN Reason: Port Protocol (<24 hours) Last Admin: 10/11/20 20:51 Dose: 50 unit Documented by: Hydromorphone HCl (Hydromorphone 0.5 Mg/0.5 Ml Syringe) 0.5 mg IVP Q2H PRN PRN Reason: Pain 8 to 10 Promethazine HCl 25 mg/ Sodium (Chloride) 51 mls @ 100 mls/hr IV Q6H PRN PRN Reason: Nausea / Vomiting Ceftriaxone Sodium 1 gm/ (Sodium Chloride) 100 mls @ 200 mls/hr IV DAILY [facility] Last Infusion: 10/12/20 09:52 Dose: Infused Documented by: Insulin Aspart (Insulin Aspart 300 Unit/3 Ml Pen) 1 - 5 unit SUBQ 0800,1200,1700,2100 [facility]; Protocol Last Admin: 10/12/20 17:28 Dose: Not Given Documented by: Olanzapine (Olanzapine Odt 5 Mg Tablet) 5 mg TL DAILY [facility] Stop: 10/17/20 08:59 Last Admin: 10/12/20 09:32 Dose: 5 mg Documented by: Ondansetron HCl (Ondansetron 4 Mg/2 Ml Vial) 4 mg IVP Q6HR PRN PRN Reason: Nausea / Vomiting Last Admin: 10/11/20 13:23 Dose: 4 mg Documented by: Ondansetron HCl (Ondansetron Odt 4 Mg Tablet) 4 mg TL AC [facility] Last Admin: 10/12/20 16:01 Dose: 4 mg Documented by: Prochlorperazine Edisylate (Prochlorperazine 10 Mg/2 Ml Vial) 10 mg IVP Q6HR PRN PRN Reason: Nausea / Vomiting Last Admin: 10/11/20 23:54 Dose: 10 mg Documented by: Sodium Chloride (Sodium Chloride Flush 0.9% 10 Ml Syringe) 10 ml IVP PRN PRN PRN Reason: NEEDED PER PROVIDER ORDERS Last Admin: 10/11/20 16:29 Dose: 10 ml Documented by: Sodium Chloride (Sodium Chloride Flush 0.9% 10 Ml Syringe) 10 ml IVP 0100,0900,1700 [facility] Last Admin: 10/12/20 17:28 Dose: 10 ml Documented by: Throat Lozenges (Benzocaine/Menthol Lozenge) 1 lozenge MM Q2HR PRN PRN Reason: Throat pain Last Admin: 10/05/20 06:02 Dose: 1 lozenge Documented by: Zolpidem Tartrate (Zolpidem 5 Mg Tablet) 5 mg PO QPM PRN PRN Reason: Insomnia Last Admin: 10/11/20 20:50 Dose: 5 mg Documented by: Atorvastatin Calcium [Lipitor] 80 mg PO DAILY 09/04/20 Clopidogrel [Plavix] 75 mg PO DAILY 09/04/20 Lisinopril/Hydrochlorothiazide [Zestoretic 20-25 mg Tablet] 20 - 25 mg PO DAILY 09/04/20 Meloxicam [Mobic] 7.5 mg PO DAILY 09/04/20 Pioglitazone HCl [Actos] 30 mg PO DAILY 09/04/20 amLODIPine [Norvasc] 5 mg PO DAILY 09/04/20 hydrOXYzine HCL [Hydroxyzine HCl] 50 - 100 mg PO HS PRN 09/04/20 Mirtazapine [Remeron] 7.5 mg PO DAILY PM 10/03/20 Omeprazole [PriLOSEC] 20 mg PO BID 10/03/20 - Allergies Allergies/Adverse Reactions: Allergies Allergy/AdvReac Type Severity Reaction Status Date / Time metformin AdvReac Emesis Verified 10/03/20 10:34 oxycodone [From Percocet] AdvReac Emesis Verified 10/03/20 10:34 Review of Systems - Constitutional Constitutional: reports: Fatigue, Weakness, Poor appetite, Weight loss. denies: Fever, Chills - Eyes Eyes: reports: Vision loss - Ears, Nose & Throat Ears, Nose & Throat: reports: Dry mouth - Cardiovascular Cardiovascular: reports: Decr. exercise tolerance - Respiratory Respiratory: denies: Cough, SOB at rest - Gastrointestinal Gastrointestinal: reports: Abdominal pain, Abdominal distention, Nausea, Vomiting, Bloating, Poor appetite, Early satiety. denies: Constipation, Reflux/heartburn - Genitourinary Genitourinary: reports: Other (has pur wik) - Musculoskeletal Musculoskeletal: reports: Muscle aches, Stiffness, Limited range of motion, Muscle weakness, Transfer issues (patient has not walked for over 6 weeks) - Integumentary Integumentary: reports: Dryness - Neurological Neurological: reports: General weakness, Memory problems - Psychiatric Psychiatric: reports: Depression, Anxiety - Endocrine Endocrine: reports: Diabetes type 2 - Hematologic/Lymphatic Hematologic/Lymph: Anemia (hct 7.8) - All Other Systems All Other Systems: reports: Other (limited) Physical Exam - Vital Signs Vital Signs: Vital Signs x48h Temp Pulse Resp BP Pulse Ox 10/12/20 15:52 36.5 C 86 18 123/74 98 10/12/20 14:15 73 107/72 - Physical Exam General Appearance: positive: Alert, Cachetic, Other (flat affect; able to engage reluctantly) Neck: positive: Trachea midline Cardiovascular: positive: Regular rate & rhythm Respiratory: positive: No respiratory distress Abdomen: positive: Soft, Tenderness, Guarding, Distended Skin: positive: Dryness Extremities: positive: No pedal edema Neurologic/Psychiatric: positive: Oriented x3, Weakness, Depressed mood/affect, Flat affect Palliative Care - POLST Patient has POLST: Yes POLST Status: DNR, Comfort Measures (completed during the visit) Pain: Pain worsening, Location (pain radiates across abdomen; fluctuates; worse with vomiting) Tiredness/Fatigue: Severe (7-10) Drowsiness/Sedation: Mild (1-3) Nausea: Severe (7-10), With vomiting Anorexia: Severe (7-10), Weight loss Dyspnea: Mild (1-3) Depression: Moderate (4-6) Anxiety: Moderate (4-6) Feelings of wellbeing/Perceived Quality of Life: Poor, Worsening Sleep: Variable sleep pattern Performance Status: Patient is very weak, has been mostly bedbound since admit. Reports she has not walked for over 6 weeks. She was able to get up though with assistance today for shower in wheelchair, but was maximum assist. Patient does describe journey functional decline over the last several months. - Palliative Care Discussion: Family conference continue to explore patient's options goals. Patient's understanding of her current illness that she does have serious cancer, her biggest fear of course is dying. She is expressing what is important to her is to spend time with family, she has had previous conversations today regarding hospice with hospitalist, and describes her cancer is "over the top". She does understand she has limited life expectancy. Dr. Livingston did introduce conversation from oncology, patient would not be appropriate for TPN, most likely actually would add to her symptom burden. She does have poor prognosis, potentially may get some relief with chemo, but would need to have better functional status which is continued decline to be able to tolerate or qualify for treatment. We did discuss sometimes benefits versus burdens, and focusing on current quality of life given known quality of life is limited. Daughter would like patient near [place], they are exploring long-term care versus SNF. Patient really is not interested in progressing her functional status, her goals are to spend time with family. She is from that area, she defines family as her daughter, daughter's boyfriend and her parents, she is gotten to know over the years. Introduced hospice and has a concept of "living" until 1 dies, discussed services as far as focusing on keeping her comfortable, and supporting her family in this transition. Patient did lose her mother to cancer, at a young age of 40. Daughters quite appropriately tearful through most of visit, she very much wants her not to have pain or to have suffering. She is very supportive of patient's choice for choosing hospice. She is quite hopeful she will be able to be placed in [place], her boyfriend sister works there and feels like it would be a supportive environment. As well as her understanding is if she is on hospice she would have access to be able to visit and provide her mother support. We did discuss in the context of this completing her DPOA, was unable to get notary down here, though by [place] law would default to the daughter. We did complete a POLST, with DN AR/DNI and allow natural , with the goal to focus on comfort. We defined her goals as focus on comfort spending time with family, and at end-of-life a comfortable respectful with hospice support. Next step would be follow-up with placement, goals remain to focus on creating best quality of life knowing quantity of life is limited. Results - Lab Results Lab results reviewed: Yes Fish Bones: 10/11/20 05:25 10/11/20 05:25 Impression and Recommendations - Palliative Care Impression: This is a 60-year-old woman who presents with advanced neuroendocrine carcinoma, with omental metasasis. She continues to present with most likely mechanical underlying etiology regarding her nausea and vomiting. Patient has had little improvement in her overall status, continues to decline functionally, and presents with moderate to high symptom burden. Palliative care providing support for family meeting, and defining goals of care, patient to transition on discharge to hospice. Recommendations/Counseling Done: 1. Nausea and vomiting. Most likely obstructive symptoms contributing to u nderlying etiology. Patient currently passing gas, is soft currently, would recommend considering trialing metoclopramide 5 mg every 6 hours for gastroparesis effect, and adding olanzipine 5 mg at bedtime. Patient needs to be transition to oral medications given pending discharge to long-term care facility. 2. Abdominal pain. Patient is experiencing abdominal pain rating across her abdomen. Goals are to decrease her suffering and increase her comfort. Patient is received very little pain medication overall. Again patient needs to be transition to oral medications, is she reports she has had emesis with oxycodone in the past. Patient may tolerate or do better on tramadol 50-100 mg every 4 hours, if she requires higher dosing, most likely would benefit and transition to fentanyl patch 12 mcg when equal analgesic dosing 200 mg tramadol/or 25 mg morphine. Patient will need comfort meds on discharge to new setting. 3. Advanced care planning. Daughter did fill out her name and address on advance care planning document of DPOA, has lifted in room, patient needs to sign with kaitlyn. Did complete with daughter and patient, POLST, with DN AR/DNI and comfort measures. After much discussion, patient has chosen hospice, and hopefully placement for long-term care in [place]. It does sound like this would be a good arrangements for the daughter to be able to provide support and get appropriate support as well. We will have LICENSED GUIDE/discharge planning as soon as discharge plan confirmed, need to notify welcome home so daughter can cloth mercerizing supervisor belongings. Will need referral to hospice [facility], to be able to get on service Time Spent: 75 minutes with greater than 50% of this time in counseling regarding goals of care, family conference, symptom management, and anticipatory guidance.
[2020-10-12] MEDS: ATORVASTATIN 40 MG TABLET PO SCH (21:43)
[2020-10-12] MEDS: ZOLPIDEM 5 MG TABLET PO PRN (23:46)
[2020-10-13] MEDS: ONDANSETRON ODT 4 MG TABLET TL SCH ×3 (06:47→15:32)
[2020-10-13] MEDS: INSULIN ASPART 300 UNIT/3 ML PEN SUBQ SCH ×4 (08:11→20:59)
[2020-10-13] MEDS: amLODIPine 5 MG TABLET PO SCH (09:19)
[2020-10-13] MEDS: cefTRIAXone 1 GM in SODIUM CHLORIDE 0.9% MINIBAG 100 ML IV SCH (09:19)
[2020-10-13] MEDS: CLOPIDOGREL 75 MG TABLET PO SCH (09:19)
[2020-10-13] MEDS: FOLIC ACID 1 MG TABLET PO SCH (09:19)
[2020-10-13] MEDS: SODIUM CHLORIDE FLUSH 0.9% 10 ML SYRINGE IVP SCH ×2 (09:20→16:54)
--- NOTE | 2020-10-13 14:39 | CONSULTATION NOTE ---
Palliative Care Follow Up - Referral Referring Provider: Dr. Prakash/Dr. Vargas Time of Visit: 2:00-2:30 Referral setting: Hospitalized patient Referral Reason: Anxiety/Neuroendocrine Tumor - Information Sources Records reviewed: RN notes reviewed, Previous records reviewed History/Review of Systems obtained from: Patient Exam limitations: No limitations - History of Present Illness Update Brief HPI Update: Please see HPI from 10/12 yesterday. This is a 60-year-old woman who presents with complex history, history of multiple strokes with some known cognitive deficits from CVA, and recently diagnosed with neuroendocrine cancer. She has had ongoing functional decline, worsening symptom burden, obstructive symptoms of nausea and vomiting, as well as worsening pain related to her cancer. In family conference yesterday, decision was made to transition to hospice care on discharge. I am meeting with patient in follow-up, continues with low-grade persistent nausea and vomiting, does report she is feeling weaker, was quite stressful to be up in the chair today. She also complaining of discomfort with straight cathed urines, mild abdominal discomfort radiating across abdomen, and with some anxiety about her impending decline. Social History - Living Situation Living arrangement: Assisted living Living Situation: With caregiver(s) Support System: Patient has been residing at [facility], assisted living. Needing increased assistance, and has had steady decline over time. She does have 1 daughter, who is 23. The hope is to have her closer to her in [place], so she can parti cipate in her care and continue to provide her support. They are currently exploring placement, patient will be discharging for [facility] care. Medications/Allergies - Medications Active Medication List: Active Medications Acetaminophen (Acetaminophen 325 Mg Tablet) 650 mg PO Q4HR PRN PRN Reason: Pain or Fever > 38C (100.4F) Last Admin: 10/12/20 17:28 Dose: 650 mg Documented by: Amlodipine Besylate (Amlodipine 5 Mg Tablet) 5 mg PO DAILY [facility] Last Admin: 10/13/20 09:19 Dose: 5 mg Documented by: Atorvastatin Calcium (Atorvastatin 40 Mg Tablet) 80 mg PO QPM [facility] Last Admin: 10/12/20 21:43 Dose: 80 mg Documented by: Clopidogrel Bisulfate (Clopidogrel 75 Mg Tablet) 75 mg PO DAILY [facility] Last Admin: 10/13/20 09:19 Dose: 75 mg Documented by: Folic Acid (Folic Acid 1 Mg Tablet) 1 mg PO DAILY [facility] Last Admin: 10/13/20 09:19 Dose: 1 mg Documented by: Heparin Sodium (Beef Lung) (Heparin Flush 50 Units/5 Ml Syringe) 30 - 50 unit IVP PRN PRN PRN Reason: Port Protocol (<24 hours) Last Admin: 10/13/20 09:20 Dose: 50 unit Documented by: Insulin Aspart (Insulin Aspart 300 Unit/3 Ml Pen) 1 - 5 unit SUBQ 0800,1200,1700,2100 [facility]; Protocol Last Admin: 10/13/20 12:42 Dose: Not Given Documented by: Morphine Sulfate (Morphine Ena 10 Mg/0.5 Ml Oral Syringe) 5 mg PO Q2HR PRN PRN Reason: PAIN Olanzapine (Olanzapine Odt 5 Mg Tablet) 5 mg TL HS [facility] Stop: 10/18/20 20:59 Ondansetron HCl (Ondansetron Odt 4 Mg Tablet) 4 mg TL AC [facility] Last Admin: 10/13/20 12:54 Dose: 4 mg Documented by: Sodium Chloride (Sodium Chloride Flush 0.9% 10 Ml Syringe) 10 ml IVP PRN PRN PRN Reason: NEEDED PER PROVIDER ORDERS Last Admin: 10/11/20 16:29 Dose: 10 ml Documented by: Sodium Chloride (Sodium Chloride Flush 0.9% 10 Ml Syringe) 10 ml IVP 0100,0900,1700 [facility] Last Admin: 10/13/20 09:20 Dose: 10 ml Documented by: Throat Lozenges (Benzocaine/Menthol Lozenge) 1 lozenge MM Q2HR PRN PRN Reason: Throat pain Last Admin: 10/05/20 06:02 Dose: 1 lozenge Documented by: Zolpidem Tartrate (Zolpidem 5 Mg Tablet) 5 mg PO QPM PRN PRN Reason: Insomnia Last Admin: 10/12/20 23:46 Dose: 5 mg Documented by: Atorvastatin Calcium [Lipitor] 80 mg PO DAILY 09/04/20 Clopidogrel [Plavix] 75 mg PO DAILY 09/04/20 Lisinopril/Hydrochlorothiazide [Zestoretic 20-25 mg Tablet] 20 - 25 mg PO DAILY 09/04/20 Meloxicam [Mobic] 7.5 mg PO DAILY 09/04/20 Pioglitazone HCl [Actos] 30 mg PO DAILY 09/04/20 amLODIPine [Norvasc] 5 mg PO DAILY 09/04/20 hydrOXYzine HCL [Hydroxyzine HCl] 50 - 100 mg PO HS PRN 09/04/20 Mirtazapine [Remeron] 7.5 mg PO DAILY PM 10/03/20 Omeprazole [PriLOSEC] 20 mg PO BID 10/03/20 - Allergies Allergies/Adverse Reactions: Allergies Allergy/AdvReac Type Severity Reaction Status Date / Time metformin AdvReac Emesis Verified 10/03/20 10:34 oxycodone [From Percocet] AdvReac Emesis Verified 10/03/20 10:34 Review of Systems - Constitutional Constitutional: reports: Fatigue, Weakness, Poor appetite, Weight loss. denies: Fever, Chills - Eyes Eyes: reports: Vision loss - Ears, Nose & Throat Ears, Nose & Throat: reports: Dry mouth - Cardiovascular Cardiovascular: reports: Decr. exercise tolerance - Respiratory Respiratory: denies: Cough, SOB at rest - Gastrointestinal Gastrointestinal: reports: Abdominal pain, Abdominal distention, Nausea, Vomiting, Bloating, Poor appetite, Early satiety. denies: Constipation, Reflux/heartburn - Genitourinary Genitourinary: reports: Other (has had some urinary retention; straight cath uncomfortable;) - Musculoskeletal Musculoskeletal: reports: Muscle aches, Stiffness, Limited range of motion, Muscle weakness, Transfer issues (patient has not walked for over 6 weeks; patient reports felt weak and shakey when up; wondering if this is how it's going to be) - Integumentary Integumentary: reports: Dryness - Neurological Neurological: reports: General weakness, Memory problems - Psychiatric Psychiatric: reports: Depression, Anxiety - Endocrine Endocrine: reports: Diabetes type 2 - Hematologic/Lymphatic Hematologic/Lymph: Anemia (hct 7.8) - All Other Systems All Other Systems: reports: Other (limited) Physical Exam - Vital Signs Vital Signs: Vital Signs x48h Temp Pulse Resp BP Pulse Ox 10/13/20 07:48 36.8 C 82 14 114/71 97 - Physical Exam General Appearance: positive: Alert, Cachetic, Other (flat affect; able to engage today; slow responses but appropriate) Eyes Bilateral: positive: Normal inspection ENT: positive: Other (poor dentition) Neck: positive: Trachea midline Cardiovascular: positive: Regular rate & rhythm Respiratory: positive: No respiratory distress Abdomen: positive: Soft, Tenderness, Guarding, Distended Skin: positive: Dryness Extremities: positive: No pedal edema Neurologic/Psychiatric: positive: Oriented x3, Weakness, Depressed mood/affect, Flat affect Palliative Care - POLST Patient has POLST: Yes POLST Status: DNR, Comfort Measures Pain: Pain unchanged, Location (mid abdominal radiating), Comment (acute pain at urethra) Tiredness/Fatigue: Severe (7-10) Drowsiness/Sedation: Mild (1-3) Nausea: Moderate (4-6), With vomiting Anorexia: Moderate (4-6) Dyspnea: Mild (1-3) Depression: Moderate (4-6) Anxiety: Moderate (4-6) Feelings of wellbeing/Perceived Quality of Life: Poor, Worsening Sleep: Variable sleep pattern Constipation: No Performance Status: Patient was up in chair briefly, - Palliative Care Discussion: Spent time with patient, addressing concerns and fears. Patient is hopeful to get [facility], to be able to spend more time with her daughter. She does recognize that things are knocking to get much better, and wondering what it is like to continue to to move towards dying. We did discuss in the context of this it was a little bit like a car running out of gas, essentially her getting weaker and sleeping more and spending more time in bed is essentially the norm. The role of hospice is to make sure her symptoms are controlled as best as possible, and support her in the emotional journey as well as the physical. We addressed specifically some of her questions and fears, as well as initiated some life review.Patient was raised Jew, she does have a valeria that includes have been on the other side, and does find it comforting to think about seeing her loved ones who have passed on. Results - Lab Results Fish Bones: 10/11/20 05:25 10/11/20 05:25 Lab and Imaging Results: Lab Results x24hrs 10/13/20 10/13/20 10/12/20 Range/Units 11:01 07:21 20:36 POC Whole Bld Glucose 93 75 83 (70 - 100) mg/dL 10/12/20 10/12/20 10/12/20 Range/Units 17:20 11:21 07:39 POC Whole Bld Glucose 87 81 93 (70 - 100) mg/dL 10/11/20 10/11/20 10/11/20 Range/Units 20:43 16:40 11:38 POC Whole Bld Glucose 88 100 103 H (70 - 100) mg/dL 10/11/20 10/10/20 10/10/20 Range/Units 07:35 20:44 16:22 POC Whole Bld Glucose 91 94 109 H (70 - 100) mg/dL 10/10/20 10/10/20 10/09/20 Range/Units 11:26 07:43 20:37 POC Whole Bld Glucose 92 91 92 (70 - 100) mg/dL 10/09/20 10/09/20 10/09/20 Range/Units 16:34 11:29 07:32 POC Whole Bld Glucose 91 98 93 (70 - 100) mg/dL 10/08/20 10/08/20 10/08/20 Range/Units 20:48 16:37 11:13 POC Whole Bld Glucose 104 H 103 H 104 H (70 - 100) mg/dL 10/08/20 10/07/20 10/07/20 Range/Units 07:37 21:12 16:50 POC Whole Bld Glucose 89 100 114 H (70 - 100) mg/dL 10/07/20 10/07/20 10/06/20 Range/Units 11:32 07:46 20:37 POC Whole Bld Glucose 102 H 102 H 96 (70 - 100) mg/dL 10/06/20 10/06/20 10/06/20 Range/Units 16:32 11:27 07:36 POC Whole Bld Glucose 123 H 129 H 96 (70 - 100) mg/dL 10/05/20 10/05/20 10/05/20 Range/Units 20:47 16:43 11:02 POC Whole Bld Glucose 116 H 126 H 131 H (70 - 100) mg/dL 10/05/20 10/05/20 10/05/20 Range/Units 07:36 06:53 00:02 POC Whole Bld Glucose 153 H 163 H 182 H (70 - 100) mg/dL 10/04/20 10/04/20 10/04/20 Range/Units 20:50 17:52 11:31 POC Whole Bld Glucose 164 H 122 H 86 (70 - 100) mg/dL 10/04/20 Range/Units 08:44 POC Whole Bld Glucose 64 L (70 - 100) mg/dL Impression and Recommendations - Palliative Care Impression: This is a 60-year-old woman who unfortunately has had a complex medical situation, as well as now diagnosis of stage IV neuroendocrine cancer, with high symptom burden. She has continued to decline, has decided to focus on comfort and transition to hospice. Palliative care providing support in the transition time, patient is expected to discharge in the next 1 to 2 days. Recommendations/Counseling Done: 1. Urethral discomfort. Did confirm with nurse caring for, patient had been straight cathed she was somewhat confused that she had "a new catheter" that was red and uncomfortable. She is somewhat distressed with this, we did discuss in the context of patient transition to comfort measures, may benefit from Gonzalez cath placement for ease of care and comfort. He will follow up with hospitalist, may be initiated on transition new setting as well. 2. Nausea and vomiting. Patient continues to take small sips of fluid, and full liquid diet. Continues have intermittent vomiting and nausea, is not responding well to any of her current medications, hospice often uses DBR suppositories may consider that in transition to new setting. Encourage patient to just take sips for comfort, and not push herself. Goal is to minimize her distress, etiology most likely mechanical in nature. 3.Anxiety. Counseling provided to normalize patient's concerns and anxiety about transition to hospice, dying process, and saying goodbyes. 4. Advanced care planning. POLST in place, has been handed off to [facility]/discharge team, as well as patient has completed DPOA, scanned in copy to [facility] as well as needs to get to discharge packet. Awaiting final outcome of approval to [facility], patient remains quite hopeful and her son would be most beneficial and supportive for daughter. Time Spent: 30 minutes with greater than 50% of this done in counseling regarding anticipa tory guidance, addressing anxiety, and coordination of care with hospitalist team.
[2020-10-13] MEDS: MORPHINE SOL 10 MG/0.5 ML ORAL SYRINGE PO PRN ×2 (14:57→20:14)
--- NOTE | 2020-10-13 15:25 | PROVIDER PROGRESS NOTE ---
Subjective - Prog Note Date Prog Note Date: 10/13/20 - Subjective Subjective: She states her pain is controlled. Still has nausea and vomiting with certain meals. She is looking forward to being closer to her family. Current Medications - Current Medications Current Medications: Active Medications Acetaminophen (Acetaminophen 325 Mg Tablet) 650 mg PO Q4HR PRN PRN Reason: Pain or Fever > 38C (100.4F) Last Admin: 10/12/20 17:28 Dose: 650 mg Documented by: Amlodipine Besylate (Amlodipine 5 Mg Tablet) 5 mg PO DAILY [facility] Last Admin: 10/13/20 09:19 Dose: 5 mg Documented by: Atorvastatin Calcium (Atorvastatin 40 Mg Tablet) 80 mg PO QPM [facility] Last Admin: 10/12/20 21:43 Dose: 80 mg Documented by: Clopidogrel Bisulfate (Clopidogrel 75 Mg Tablet) 75 mg PO DAILY [facility] Last Admin: 10/13/20 09:19 Dose: 75 mg Documented by: Folic Acid (Folic Acid 1 Mg Tablet) 1 mg PO DAILY [facility] Last Admin: 10/13/20 09:19 Dose: 1 mg Documented by: Heparin Sodium (Beef Lung) (Heparin Flush 50 Units/5 Ml Syringe) 30 - 50 unit IVP PRN PRN PRN Reason: Port Protocol (<24 hours) Last Admin: 10/13/20 09:20 Dose: 50 unit Documented by: Insulin Aspart (Insulin Aspart 300 Unit/3 Ml Pen) 1 - 5 unit SUBQ 0800,1200,1700,2100 [facility]; Protocol Last Admin: 10/13/20 12:42 Dose: Not Given Documented by: Morphine Sulfate (Morphine Ena 10 Mg/0.5 Ml Oral Syringe) 5 mg PO Q2HR PRN PRN Reason: PAIN Last Admin: 10/13/20 14:57 Dose: 5 mg Documented by: Olanzapine (Olanzapine Odt 5 Mg Tablet) 5 mg TL HS [facility] Stop: 10/18/20 20:59 Ondansetron HCl (Ondansetron Odt 4 Mg Tablet) 4 mg TL AC [facility] Last Admin: 10/13/20 12:54 Dose: 4 mg Documented by: Sodium Chloride (Sodium Chloride Flush 0.9% 10 Ml Syringe) 10 ml IVP PRN PRN PRN Reason: NEEDED PER PROVIDER ORDERS Last Admin: 10/11/20 16:29 Dose: 10 ml Documented by: Sodium Chloride (Sodium Chloride Flush 0.9% 10 Ml Syringe) 10 ml IVP 0100,0900,1700 [facility] Last Admin: 10/13/20 09:20 Dose: 10 ml Documented by: Throat Lozenges (Benzocaine/Menthol Lozenge) 1 lozenge MM Q2HR PRN PRN Reason: Throat pain Last Admin: 10/05/20 06:02 Dose: 1 lozenge Documented by: Zolpidem Tartrate (Zolpidem 5 Mg Tablet) 5 mg PO QPM PRN PRN Reason: Insomnia Last Admin: 10/12/20 23:46 Dose: 5 mg Documented by: Atorvastatin Calcium [Lipitor] 80 mg PO DAILY 09/04/20 Clopidogrel [Plavix] 75 mg PO DAILY 09/04/20 Lisinopril/Hydrochlorothiazide [Zestoretic 20-25 mg Tablet] 20 - 25 mg PO DAILY 09/04/20 Meloxicam [Mobic] 7.5 mg PO DAILY 09/04/20 Pioglitazone HCl [Actos] 30 mg PO DAILY 09/04/20 amLODIPine [Norvasc] 5 mg PO DAILY 09/04/20 hydrOXYzine HCL [Hydroxyzine HCl] 50 - 100 mg PO HS PRN 09/04/20 Mirtazapine [Remeron] 7.5 mg PO DAILY PM 10/03/20 Omeprazole [PriLOSEC] 20 mg PO BID 10/03/20 Objective - Vital Signs/Intake & Output Reviewed Vital Signs: Yes Vital Signs: Vital Signs x48h Temp Pulse Resp BP Pulse Ox 10/13/20 07:48 36.8 C 82 14 114/71 97 Intake & Output: Intake & Output 10/10/20 10/11/20 10/12/20 10/13/20 23:59 23:59 23:59 23:59 Intake Total 2160 1620 300 270 Output Total 3036 233 3936 110 Balance 860 870 -900 160 - Objective General Appearance: positive: No acute distress, Alert Eyes Bilateral: positive: Normal inspection, Conjunctivae nml ENT: positive: ENT inspection nml Neck: positive: Nml inspection Respiratory: positive: No respiratory distress. negative: Wheezes, Rales Cardiovascular: positive: Regular rate & rhythm. negative: Tachycardia Abdomen: positive: Non-tender, Nml bowel sounds, No distention. negative: Guarding, Rebound Skin: positive: Warm, Dry - Lab Results Fish Bones: 10/11/20 05:25 10/11/20 05:25 Other Labs: Lab Results x24hrs 10/13/20 10/13/20 10/12/20 Range/Units 11:01 07:21 20:36 POC Whole Bld Glucose 93 75 83 (70 - 100) mg/dL 10/12/20 10/12/20 10/12/20 Range/Units 17:20 11:21 07:39 POC Whole Bld Glucose 87 81 93 (70 - 100) mg/dL 10/11/20 10/11/20 10/11/20 Range/Units 20:43 16:40 11:38 POC Whole Bld Glucose 88 100 103 H (70 - 100) mg/dL 10/11/20 10/10/20 10/10/20 Range/Units 07:35 20:44 16:22 POC Whole Bld Glucose 91 94 109 H (70 - 100) mg/dL 10/10/20 10/10/20 10/09/20 Range/Units 11:26 07:43 20:37 POC Whole Bld Glucose 92 91 92 (70 - 100) mg/dL 10/09/20 10/09/20 10/09/20 Range/Units 16:34 11:29 07:32 POC Whole Bld Glucose 91 98 93 (70 - 100) mg/dL 10/08/20 10/08/20 10/08/20 Range/Units 20:48 16:37 11:13 POC Whole Bld Glucose 104 H 103 H 104 H (70 - 100) mg/dL 10/08/20 10/07/20 10/07/20 Range/Units 07:37 21:12 16:50 POC Whole Bld Glucose 89 100 114 H (70 - 100) mg/dL 10/07/20 10/07/20 10/06/20 Range/Units 11:32 07:46 20:37 POC Whole Bld Glucose 102 H 102 H 96 (70 - 100) mg/dL 10/06/20 10/06/20 10/06/20 Range/Units 16:32 11:27 07:36 POC Whole Bld Glucose 123 H 129 H 96 (70 - 100) mg/dL 10/05/20 10/05/20 10/05/20 Range/Units 20:47 16:43 11:02 POC Whole Bld Glucose 116 H 126 H 131 H (70 - 100) mg/dL 10/05/20 10/05/20 10/05/20 Range/Units 07:36 06:53 00:02 POC Whole Bld Glucose 153 H 163 H 182 H (70 - 100) mg/dL 10/04/20 10/04/20 10/04/20 Range/Units 20:50 17:52 11:31 POC Whole Bld Glucose 164 H 122 H 86 (70 - 100) mg/dL 10/04/20 Range/Units 08:44 POC Whole Bld Glucose 64 L (70 - 100) mg/dL Assessment/Plan - Problem List (1) Neuroendocrine carcinoma Impression: 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 After discussion with oncology and speaking with the patient and her family, the patient has decided to proceed with hospice. POLST form was filled out yesterday with palliative care stating DNR with focus on comfort. We are looking to discharge her to a long-term care facility in [place] to be closer to family. We are hopeful this will happen tomorrow. We will continue pain control with morphine every 2 hours as needed (2) Nausea & vomiting Impression: This is secondary to her malignancy. We will continue with Zofran as needed. We have started her on Zyprexa and will try this while she is hospitalized. We will not pursue TPN given she will be on hospice. Qualifiers: Vomiting type: unspecified Vomiting Intractability: intractable Qualified Code(s): R11.2 - Nausea with vomiting, unspecified (3) UTI (urinary tract infection) Impression: Completed treatment with ceftriaxone during this hospitalization. 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 (5) Hx of essential hypertension Impression: We will continue her amlodipine. We will discontinue her lisinopril/ hydrochlorothiazide on discharge given her blood pressure has been well controlled on just amlodipine. (6) Acute kidney injury Impression: This has resolved.
[2020-10-13] MEDS: ATORVASTATIN 40 MG TABLET PO SCH (21:38)
[2020-10-13] MEDS: OLANZapine ODT 5 MG TABLET TL SCH (21:39)
[2020-10-13] MEDS: ZOLPIDEM 5 MG TABLET PO PRN (21:39)
[2020-10-14] MEDS: SODIUM CHLORIDE FLUSH 0.9% 10 ML SYRINGE IVP PRN (00:50)
[2020-10-14] MEDS: SODIUM CHLORIDE FLUSH 0.9% 10 ML SYRINGE IVP SCH ×4 (00:50→23:44)
[2020-10-14] MEDS: ONDANSETRON ODT 4 MG TABLET TL SCH (06:00)
[2020-10-14] MEDS: amLODIPine 5 MG TABLET PO SCH (08:07)
[2020-10-14] MEDS: FOLIC ACID 1 MG TABLET PO SCH (08:07)
[2020-10-14] MEDS: ACETAMINOPHEN 325 MG TABLET PO PRN ×2 (08:08→17:08)
[2020-10-14] MEDS: INSULIN ASPART 300 UNIT/3 ML PEN SUBQ SCH ×4 (08:08→20:59)
[2020-10-14] MEDS: CLOPIDOGREL 75 MG TABLET PO SCH (08:08)
--- NOTE | 2020-10-14 12:58 | PROVIDER PROGRESS NOTE ---
Subjective - Prog Note Date Prog Note Date: 10/14/20 - Subjective Subjective: She is looking forward to leaving tomorrow. States abdominal pain is controlled for the most part. Still has vomiting but feels it is becoming less frequent. Current Medications - Current Medications Current Medications: Active Medications Acetaminophen (Acetaminophen 325 Mg Tablet) 650 mg PO Q4HR PRN PRN Reason: Pain or Fever > 38C (100.4F) Last Admin: 10/14/20 08:08 Dose: 650 mg Documented by: Amlodipine Besylate (Amlodipine 5 Mg Tablet) 5 mg PO DAILY [facility] Last Admin: 10/14/20 08:07 Dose: 5 mg Documented by: Atorvastatin Calcium (Atorvastatin 40 Mg Tablet) 80 mg PO QPM [facility] Last Admin: 10/13/20 21:38 Dose: 80 mg Documented by: Clopidogrel Bisulfate (Clopidogrel 75 Mg Tablet) 75 mg PO DAILY [facility] Last Admin: 10/14/20 08:08 Dose: 75 mg Documented by: Folic Acid (Folic Acid 1 Mg Tablet) 1 mg PO DAILY [facility] Last Admin: 10/14/20 08:07 Dose: 1 mg Documented by: Heparin Sodium (Beef Lung) (Heparin Flush 50 Units/5 Ml Syringe) 30 - 50 unit IVP PRN PRN PRN Reason: Port Protocol (<24 hours) Last Admin: 10/14/20 00:50 Dose: 50 unit Documented by: Insulin Aspart (Insulin Aspart 300 Unit/3 Ml Pen) 1 - 5 unit SUBQ 0800,1200,1700,2100 [facility]; Protocol Last Admin: 10/14/20 08:08 Dose: Not Given Documented by: Morphine Sulfate (Morphine Ena 10 Mg/0.5 Ml Oral Syringe) 5 mg PO Q2HR PRN PRN Reason: PAIN Last Admin: 10/13/20 20:14 Dose: 5 mg Documented by: Olanzapine (Olanzapine Odt 5 Mg Tablet) 5 mg TL HS [facility] Stop: 10/18/20 20:59 Last Admin: 10/13/20 21:39 Dose: 5 mg Documented by: Ondansetron HCl (Ondansetron Odt 4 Mg Tablet) 4 mg TL Q4HR PRN PRN Reason: Nausea / Vomiting Sodium Chloride (Sodium Chloride Flush 0.9% 10 Ml Syringe) 10 ml IVP PRN PRN PRN Reason: NEEDED PER PROVIDER ORDERS Last Admin: 10/14/20 00:50 Dose: 10 ml Documented by: Sodium Chloride (Sodium Chloride Flush 0.9% 10 Ml Syringe) 10 ml IVP 0100,0900,1700 [facility] Last Admin: 10/14/20 08:07 Dose: 10 ml Documented by: Throat Lozenges (Benzocaine/Menthol Lozenge) 1 lozenge MM Q2HR PRN PRN Reason: Throat pain Last Admin: 10/05/20 06:02 Dose: 1 lozenge Documented by: Zolpidem Tartrate (Zolpidem 5 Mg Tablet) 5 mg PO QPM PRN PRN Reason: Insomnia Last Admin: 10/13/20 21:39 Dose: 5 mg Documented by: Atorvastatin Calcium [Lipitor] 80 mg PO DAILY 09/04/20 Clopidogrel [Plavix] 75 mg PO DAILY 09/04/20 Lisinopril/Hydrochlorothiazide [Zestoretic 20-25 mg Tablet] 20 - 25 mg PO DAILY 09/04/20 Meloxicam [Mobic] 7.5 mg PO DAILY 09/04/20 Pioglitazone HCl [Actos] 30 mg PO DAILY 09/04/20 amLODIPine [Norvasc] 5 mg PO DAILY 09/04/20 hydrOXYzine HCL [Hydroxyzine HCl] 50 - 100 mg PO HS PRN 09/04/20 Mirtazapine [Remeron] 7.5 mg PO DAILY PM 10/03/20 Omeprazole [PriLOSEC] 20 mg PO BID 10/03/20 Objective - Vital Signs/Intake & Output Reviewed Vital Signs: Yes Vital Signs: Vital Signs x48h Temp Pulse Resp BP Pulse Ox 10/14/20 07:30 36.8 C 98 16 118/77 96 Intake & Output: Intake & Output 10/11/20 10/12/20 10/13/20 10/14/20 23:59 23:59 23:59 23:59 Intake Total 1620 300 320 Output Total 750 1200 360 Balance 870 -900 -40 - Objective General Appearance: positive: No acute distress, Alert Eyes Bilateral: positive: Normal inspection, Conjunctivae nml ENT: positive: ENT inspection nml Neck: positive: Nml inspection Respiratory: positive: No respiratory distress Abdomen: positive: No distention, Tenderness (Mild diffuse tenderness.). negat riaz: Guarding, Rebound Skin: positive: Warm, Dry - Lab Results Fish Bones: 10/11/20 05:25 10/11/20 05:25 Other Labs: Lab Results x24hrs 10/14/20 10/14/20 10/14/20 Range/Units 11:14 07:28 06:56 POC Whole Bld Glucose 69 L 69 L 71 (70 - 100) mg/dL 10/14/20 10/14/20 10/13/20 Range/Units 06:33 06:07 20:52 POC Whole Bld Glucose 67 L 67 L 73 (70 - 100) mg/dL 10/13/20 Range/Units 16:43 POC Whole Bld Glucose 74 (70 - 100) mg/dL Assessment/Plan - Problem List (1) Neuroendocrine carcinoma Impression: After discussion with oncology and the patient as well as family, the patient h as decided to go to long-term care facility in [place] on hospice. She will be discharged to the facility tomorrow. (2) Nausea & vomiting Impression: She continues to have nausea and vomiting secondary to her malignancy. She has not responded well to antiemetics and this is likely because her vomiting is due to cancer unfortunately. We will continue with antiemetics as tolerated but I suspect she will continue to have nausea and vomiting. Plan is to discharge her to home care tomorrow on hospice. We will continue with Zofran and Zyprexa in the evening. Continue clear liquid diet as tolerated along with Ensure. Qualifiers: Vomiting type: unspecified Vomiting Intractability: intractable Qualified Code(s): R11.2 - Nausea with vomiting, unspecified (3) UTI (urinary tract infection) Impression: She completed treatment with ceftriaxone for E. coli UTI. 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 (5) Hx of essential hypertension Impression: Stable on amlodipine.
[2020-10-14] MEDS: ONDANSETRON ODT 4 MG TABLET TL PRN ×2 (17:08→21:06)
[2020-10-14] MEDS: OLANZapine ODT 5 MG TABLET TL SCH (21:06)
[2020-10-14] MEDS: ATORVASTATIN 40 MG TABLET PO SCH ×2 (21:06→21:11)
[2020-10-14] MEDS ORDERED: PROCHLORPERAZINE 10 MG/2 ML VIAL IVP PRN (23:55)
[2020-10-15] MEDS: ZOLPIDEM 5 MG TABLET PO PRN (00:24)
--- NOTE | 2020-10-15 07:24 | Discharge Plan ---
Discharge Plan for SNF / [facility] - Discharge Plan And Transition Orders Problem Reviewed?: Yes Disposition: 50 Hospice/Home DC/Xfer Condition: Fair Allergies and Adverse Reactions: Allergies Allergy/AdvReac Type Severity Reaction Status Date / Time metformin AdvReac Emesis Verified 10/03/20 10:34 oxycodone [From Percocet] AdvReac Emesis Verified 10/03/20 10:34 Health Concerns: Patient was admitted due to acute kidney injury from nausea and vomiting. CT of the abdomen and pelvis was obtained which was concerning for malignant omentum. 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 Acute kidney injury resolved with IV fluids but unfortunate, she continued to have nausea and vomiting throughout her stay. Despite multiple antiemetics, she was still continued to vomit and was felt this was likely due to her malignancy. This was discussed with oncology and it was felt that her prognosis is quite poor. It was felt that she could follow-up on outpatient basis for possible chemotherapy depending on her functional status or a consideration for hospice can be made. After consulting palliative care and speaking with the patient and her daughter, the patient and family were agreeable to hospice. She will be discharged to [facility] and rehab. She will be provided with oral oxycodone for pain. She still continues to vomit occasionally with meals and so we have also provided her with a prescription for Zofran. Plan of Treatment: Plan is to focus on quality of life and comfort under hospice. We recommend contining with a liquid diet and Ensure as tolerated as this is what she has been tolerating given her malignancy. Assessment: Patient expressed understanding of the information provided her. - SNF / [facility] Transition Orders Admit to (Facility): [facility] and rehab Discharge Diagnosis: Large cell neuroendocrine carcinoma - ongoing. Nausea vomiting - ongoing. Urinary tract infection - resolved. History of cerebrovascular accident - stable. Hypertension - stable. Medicare Certification Statement: I certify that Post Hospital detention care is medically necessary on a continuing basis for any of the conditions for which she/he is receiving care during hospitalization. Notify PCP of admission and forward orders to primary provider for signature. Other Notification Orders: Call PCP immediately if patient develops dyspnea, chest pain/tightness or edema. Additional Bowel Program Orders: If no BM after 2 days, nurse may give M.O.M. 30ml PO PRN and/or ducolax Supp 1 DC and/or JOSE 250mg P.O., and/or senna 1-2 tabs PO. On day 3 nurse may give repeat above order until residents constipation is resolved. Medication Orders: PLEASE REFER TO THE DISCHARGE MEDICATION LIST. - Medications New Prescriptions: Ondansetron Odt [Zofran Odt] 4 mg TL Q4HR PRN #20 tablet PRN Reason: Nausea / Vomiting - [facility] Liquids: Thin May have monthly special meal: Yes Follow Up: She will follow up with hospice.
--- NOTE | 2020-10-15 07:37 | DISCHARGE SUMMARY ---
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 Nausea vomiting - ongoing. Urinary tract infection - resolved. History of cerebrovascular accident - stable. Hypertension - stable. - HPI History of Present Illness: This is a 60 y/o F with a history of Type 2 DM, HTN, hyperlipidemia, and CVA x2 who presented to the ED via EMS for intractable nausea and vomiting. She has been seen multiple times for this reason since mid-August. She says that she has been vomiting about every 20 minutes for the last 3 weeks. She says the vomit is green. Oral intake aggravates her symptoms, there are no alleviating factors. She still has an appetite but is unable to hold anything down. She has lost 20 lbs in the last month. She denies any hemoptysis, chest pain, shortness of breath, palpitations. Her CT abdomen/pelvis w/o contrast revealed definite likely malignant thickening of the omentum best seen at the left upper quadrant, ventral to the spleen that also extends inferiorly along the anterior peritoneal space into the pelvis. Her chemistry panel is notable for an elevated BUN (39), GFR of 31, elevated creatinine (1.7, baseline 1.2-1.5), hypokalemia (2.3) and hypochloremia (78). She is being admitted to have her electrolyte imbalance corrected before being taken to the OR to have a laproscopic biopsy. - CONSULTS | PROCEDURES Consultations: General Surgery, Palliative Care. Procedures: He underwent diagnostic laparoscopy with omental biopsy and aspiration of intraperitoneal fluid. Malignant appearing omental mass involving 100% of the omentum was found. Thick slimy, bloody intraperitoneal fluid. Peritoneal studding appreciate involving all portion anterior abdominal wall. Exploration limited by friability of the mass and bleeding. - HOSPITAL COURSE Hospital Course: Patient was admitted due to acute kidney injury from nausea and vomiting. CT of the abdomen and pelvis was obtained which was concerning for malignant omentum. 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 Acute kidney injury resolved with IV fluids but unfortunately, she continued to have nausea and vomiting throughout her stay. Despite multiple antiemetics, she was still continued to vomit and was felt this was likely due to her malignancy. This was discussed with oncology and it was felt that her prognosis is quite poor. It was felt that she could follow-up on outpatient basis for possible chemotherapy depending on her functional status or a consideration for hospice can be made. After consulting palliative care and speaking with the patient and her daughter, the patient and family were agreeabl e to hospice. She will be discharged to [facility] and rehab. She will be provided with oral oxycodone for pain. She still continues to vomit occasionally with meals and so we have also provided her with a prescription for Zofran. - ALLERGIES Allergies/Adverse Reactions: Allergies Allergy/AdvReac Type Severity Reaction Status Date / Time metformin AdvReac Emesis Verified 10/03/20 10:34 oxycodone [From Percocet] AdvReac Emesis Verified 10/03/20 10:34 - MEDICATIONS Home Medications: Ambulatory Orders Medication Instructions Recorded Confirmed Atorvastatin Calcium [Lipitor] 80 mg PO DAILY 09/04/20 10/03/20 Clopidogrel [Plavix] 75 mg PO DAILY 09/04/20 10/03/20 amLODIPine [Norvasc] 5 mg PO DAILY 09/04/20 10/03/20 hydrOXYzine HCL [Hydroxyzine HCl] 50 - 100 mg PO HS PRN 09/04/20 10/03/20 Folic Acid 1 mg PO DAILY #30 tablet 09/07/20 10/03/20 Mirtazapine [Remeron] 7.5 mg PO DAILY PM 10/03/20 10/03/20 Omeprazole [PriLOSEC] 20 mg PO BID 10/03/20 10/03/20 Ondansetron Odt [Zofran Odt] 4 mg TL Q4HR PRN #20 tablet 10/15/20 - PHYSICAL EXAM AT DISCHARGE General Appearance: positive: No acute distress, Alert Eyes Bilateral: positive: Conjunctivae nml ENT: positive: ENT inspection nml Neck: positive: Nml inspection Respiratory: positive: No respiratory distress. negative: Wheezes, Rales Cardiovascular: positive: Regular rate & rhythm. negative: Tachycardia, Systolic murmur Abdomen: positive: Non-tender, Nml bowel sounds, No distention. negative: Tenderness, Guarding Skin: positive: Warm, Dry Extremities: positive: No pedal edema Neurologic/Psychiatric: negative: Disoriented to person, Disoriented to place Physical Exam Other/Comments: Vital Signs - 24 hr 10/14/20 10/15/20 23:45 08:00 Temperature 36.9 C 36.7 C Heart Rate [ 88 Brachial] Heart Rate [ 99 Monitoring electrodes] Respiratory 16 16 Rate Blood Pressure 134/79 H 126/83 H [Right Brachial artery] O2 Saturation 95 96 Oxygen O2 Source Room air - LABS Result Diagrams: 10/11/20 05:25 10/11/20 05:25 - FOLLOW UP Follow Up: She will follow up with hospice at [facility] and rehab. - TIME SPENT Time Spent in Discharge (Minutes): 32"
[2020-10-15 08:44] VITALS: BP 126/83
[2020-10-15] MEDS: INSULIN ASPART 300 UNIT/3 ML PEN SUBQ SCH (09:03)
[2020-10-15] MEDS: MORPHINE SOL 10 MG/0.5 ML ORAL SYRINGE PO PRN ×2 (09:05→11:46)
[2020-10-15] MEDS: amLODIPine 5 MG TABLET PO SCH (09:05)
[2020-10-15] MEDS: CLOPIDOGREL 75 MG TABLET PO SCH (09:05)
[2020-10-15] MEDS: SODIUM CHLORIDE FLUSH 0.9% 10 ML SYRINGE IVP SCH (09:05)
[2020-10-15] MEDS: FOLIC ACID 1 MG TABLET PO SCH (09:05)
[2020-10-15] MEDS: ONDANSETRON ODT 4 MG TABLET TL PRN (11:46)
== END 2020-10-15 11:46 | disposition hospice, home (50) | DRG 827 ==
LOC: EDUNIT# → ED 10:16 → MS2 14:46
PROVIDERS: ADMIT Specialist; ATTEND Internal Medicine
PROC: 0W9G4ZX Drainage of Peritoneal Cavity, Percutaneous Endoscopic Approach, Diagnostic (ICD-10-PCS; 2020-10-04)
PROC: 0JH60WZ Insertion of Totally Implantable Vascular Access Device into Chest Subcutaneous Tissue and Fascia, Open Approach (ICD-10-PCS; 2020-10-04)
PROC: 02HV33Z Insertion of Infusion Device into Superior Vena Cava, Percutaneous Approach (ICD-10-PCS; 2020-10-04)
PROC: 0WBH4ZX Excision of Retroperitoneum, Percutaneous Endoscopic Approach, Diagnostic (ICD-10-PCS; principal; 2020-10-04 13:30)
DX: C7A.1 Malignant poorly differentiated neuroendocrine tumors (principal); N39.0 Urinary tract infection, site not specified; N17.9 Acute kidney failure, unspecified; R11.2 Nausea with vomiting, unspecified; I69.319 Unspecified symptoms and signs involving cognitive functions following cerebral infarction; I12.9 Hypertensive chronic kidney disease with stage 1 through stage 4 chronic kidney disease, or unspecified chronic kidney disease; N18.9 Chronic kidney disease, unspecified; E11.22 Type 2 diabetes mellitus with diabetic chronic kidney disease; Z79.84 Long term (current) use of oral hypoglycemic drugs; E78.5 Hyperlipidemia, unspecified; E87.8 Other disorders of electrolyte and fluid balance, not elsewhere classified; E87.6 Hypokalemia; D63.1 Anemia in chronic kidney disease; F17.210 Nicotine dependence, cigarettes, uncomplicated; Z51.5 Encounter for palliative care; Z66 Do not resuscitate; Z99.3 Dependence on wheelchair; F32.9 Major depressive disorder, single episode, unspecified; F41.9 Anxiety disorder, unspecified; G89.3 Neoplasm related pain (acute) (chronic); E86.0 Dehydration; B96.20 Unspecified Escherichia coli [E. coli] as the cause of diseases classified elsewhere; Z20.822 Contact with and (suspected) exposure to COVID-19
CPT/HCPCS: 0202U; 36415; 71045; 74018; 74176; 80048; 80053; 80076; 80306; 81001; 82105; 82378; 83036; 83690; 83735; 84100; 85025; 86304; 87086; 87181; 87635; 96361; 96365; 96375; 97161; 97530; 99223; 99232; 99284; 99285; A9270; C1788; J1170; J1815; J2060; J2765; J7120; Q0162; 81003